=== PATIENT | female | born 1955 | race Caucasian/White ===

== ENCOUNTER 2016-05-25 | Outpatient (CLI) | payer OTHER | END 2016-05-25 14:21 | disposition home or self-care (01) | DX: G62.9 Polyneuropathy, unspecified (principal) ==

== ENCOUNTER 2016-06-08 | Outpatient (CLI) | payer OTHER | END 2016-06-08 14:50 | disposition home or self-care (01) | DX: G62.9 Polyneuropathy, unspecified (principal) ==

== ENCOUNTER 2016-06-15 | Outpatient (CLI) | payer OTHER | END 2016-06-15 15:01 | disposition home or self-care (01) | DX: I89.0 Lymphedema, not elsewhere classified (principal) ==

== ENCOUNTER 2016-06-15 08:00 | Outpatient (CLI) | payer OTHER | END 2016-06-15 08:01 | disposition home or self-care (01) | DX: E11.9 Type 2 diabetes mellitus without complications (principal); Z79.899 Other long term (current) drug therapy ==

== ENCOUNTER 2016-07-20 15:19 | Outpatient (CLI) | payer OTHER | END 2016-07-20 15:20 | disposition home or self-care (01) | DX: G62.9 Polyneuropathy, unspecified (principal) ==

== ENCOUNTER 2016-07-27 15:06 | Outpatient (CLI) | payer OTHER | END 2016-07-27 15:07 | disposition home or self-care (01) | DX: G62.9 Polyneuropathy, unspecified (principal) ==

== ENCOUNTER 2016-08-03 13:15 | Outpatient (CLI) | payer OTHER | END 2016-08-03 13:16 | disposition home or self-care (01) | DX: G62.9 Polyneuropathy, unspecified (principal) ==

== ENCOUNTER 2016-08-10 13:34 | Outpatient (CLI) | payer OTHER | END 2016-08-10 13:35 | disposition home or self-care (01) | DX: G62.9 Polyneuropathy, unspecified (principal) ==

== ENCOUNTER 2016-08-11 14:17 | Outpatient (CLI) | payer OTHER | END 2016-08-11 14:18 | disposition home or self-care (01) | DX: L98.1 Factitial dermatitis (principal); N61.0 Mastitis without abscess ==

== ENCOUNTER 2016-08-31 14:30 | Outpatient (CLI) | payer OTHER | END 2016-08-31 14:31 | disposition home or self-care (01) | DX: G62.9 Polyneuropathy, unspecified (principal); I89.0 Lymphedema, not elsewhere classified ==

== ENCOUNTER 2016-09-20 08:57 | Outpatient (CLI) | payer OTHER ==
--- NOTE | 2016-09-20 12:47 | MRI Report ---
MRI BILATERAL BREASTS WITHOUT CONTRAST: 09/20/2016 CLINICAL INDICATION: Silicone implants, new onset left breast erythema. TECHNIQUE: Axial fat-suppressed, fat and fluid-suppressed, and silicone- suppressed images of both breasts were obtained with a dedicated breast coil, as well as sagittal fat and fluid-suppressed images of both breasts. COMPARISON: Previous outside breast MRI dated 07/01/2010. FINDINGS: Bilateral silicone implants are present. There is edema of the medial skin and subcutaneous fat overlying the left implant. There is no evidence of implant rupture on either side. No deep collection is identified. No axillary adenopathy is seen. IMPRESSION: NO EVIDENCE OF SILICONE IMPLANT RUPTURE. SKIN AND SUBCUTANEOUS EDEMA OVERLYING THE LEFT IMPLANT. JOB #: [id number] EXT JOB #: [id number] [email or web address]
== END 2016-09-20 08:58 | disposition home or self-care (01) ==
LOC: DI 08:57
PROVIDERS: ATTEND Nurse Practitioner Primary Care
DX: N64.9 Disorder of breast, unspecified (principal); R60.0 Localized edema; Z98.82 Breast implant status
CPT/HCPCS: 77059

== ENCOUNTER 2016-09-27 13:19 | Outpatient (CLI) | payer OTHER ==
--- NOTE | 2016-09-27 14:25 | Ultrasound Report ---
ULTRASOUND OF NECK: 09/27/2016 CLINICAL INDICATION: Palpable abnormality. TECHNIQUE: Real-time scanning was performed with signs sales representative static images obtained. FINDINGS: Ultrasound of the palpable abnormality identified by the patient at the left angle of the mandible was performed. At this site, there is a small lymph node, measuring 1.8 x 1.6 x 0.4 cm. No sonographically suspiciou s findings are seen. IMPRESSION: SMALL LYMPH NODE, CORRELATING WITH THE PALPABLE ABNORMALITY. JOB #: [id number] EXT JOB #:[id number]
== END 2016-09-27 13:20 | disposition home or self-care (01) ==
LOC: DI 13:19
PROVIDERS: ATTEND Internal Medicine
DX: R22.1 Localized swelling, mass and lump, neck (principal)
CPT/HCPCS: 76536

== ENCOUNTER 2016-09-28 15:24 | Outpatient (CLI) | payer OTHER | END 2016-09-28 15:25 | disposition home or self-care (01) | LOC: CAM 15:24 | PROVIDERS: ATTEND Internal Medicine Hematology & Oncology | DX: G62.9 Polyneuropathy, unspecified (principal) | CPT/HCPCS: 97810; 97811 ==

== ENCOUNTER 2016-11-30 15:25 | Outpatient (CLI) | payer OTHER | END 2016-11-30 15:26 | disposition home or self-care (01) | LOC: CAM 15:25 | PROVIDERS: ATTEND Internal Medicine Hematology & Oncology | DX: G62.9 Polyneuropathy, unspecified (principal) | CPT/HCPCS: 97810; 97811 ==

== ENCOUNTER 2016-12-14 15:36 | Outpatient (CLI) | payer OTHER | END 2016-12-14 15:37 | disposition home or self-care (01) | LOC: CAM 15:36 | PROVIDERS: ATTEND Internal Medicine Hematology & Oncology | DX: G62.9 Polyneuropathy, unspecified (principal) | CPT/HCPCS: 97810; 97811 ==

== ENCOUNTER 2017-01-08 23:07 | Emergency (ER) | payer OTHER ==
[2017-01-08 23:20] VITALS: BP 151/95
--- NOTE | 2017-01-08 23:24 | ED Physician Documentation ---
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 The IV line detached and she got splatter of blood and IV solution onto her chest, neck, face and a drop or two in her right eye. She did wash her face and eye right away. Denies any visual change nor eye discomfort. 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: Type 2 diabetes 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 : Kidney stones HEENT: None, Dental implants Psych: None Musculoskeletal: Osteoporosis - Past Surgical History Past Surgical History: Yes General: Appendectomy Ortho: Arthroscopic surgery /WOOD EXPERIMENTAL MECHANIC: Hysterectomy - Present Medications Home Medications: Ambulatory Orders Medication Instructions Recorded Confirmed Vit C/Ascorbate Ca/Ascorb Sod 1,000 mg PO DAILY 12/01/12 10/02/16 [Vitamin C 500 mg/15 ml Liquid] Lactobacillus Rhamnosus GG 1 cap PO DAILY 02/24/13 10/02/16 [Probiotic] Aspirin Chewable [St Nawaf 81 mg PO DAILY 09/29/13 10/02/16 Aspirin] Calcium Carbonate/Vitamin D3 600 mg PO DAILY 09/29/13 10/02/16 [Calcium + Vitamin D Tablet] Glucosa Mix 2Kcl/Chondroitin Mix 1 each PO QID 09/29/13 10/02/16 [Glucosamine & Chondroitin Cap] metFORMIN [Glucophage] 500 mg PO TID 09/29/13 10/02/16 Allopurinol 200 mg PO DAILY 10/26/14 10/02/16 Hydrochlorothiazide 25 mg PO DAILY 10/26/14 10/02/16 Gabapentin [Neurontin] 1,500 mg PO TID 03/01/15 10/02/16 Hydrocodone/Ibuprofen [Vicoprofen 3 tab PO DAILY PRN 09/06/15 10/02/16 7.5-200 mg Tablet] Anastrozole [Arimidex] 1 mg PO DAILY 06/26/16 10/02/16 Biotin 300 mg PO DAILY 06/26/16 10/02/16 Ibuprofen 800 mg PO DAILY 06/26/16 10/02/16 Insulin 70/30 Human [NovoLIN] 20 unit INJ DAILY 06/26/16 10/02/16 Alendronate [Fosamax] 70 mg PO Q7D 10/02/16 10/02/16 - Allergies Allergies/Adverse Reactions: Allergies Allergy/AdvReac Type Severity Reaction Status Date / Time latex AdvReac Mild Sensitivity/Red Verified 01/08/17 23:18 irritated skin - Social History Does the pt smoke?: No Smoking Status: Never smoker Does the pt drink ETOH?: No Does the pt have substance abuse?: No - Immunizations Immunizations are current?: Yes - POLST Patient has POLST: No PD ED PE NORMAL - Vitals Vital signs reviewed: Yes - General General: Alert and oriented X 3, No acute distress, Well developed/nourished - HEENT HEENT: PERRL, EOMI, Other (normal eye appearance) - Derm Derm: Other (no noted rash nor FB. Her uniform shirt does not have any notable blood stains.) Results - Vitals Vitals: Oxygen O2 Source Room air - Labs Labs: Laboratory Tests 01/08/17 23:26 Hep Bs Immunity Index 140 Hepatitis C Antibody NON-REACTIVE Hep C Ab Signal/Cutoff 0.00 HIV 1&2 Ag/Ab, 4th Gen NON-REACTIVE PD MEDICAL DECISION MAKING - ED course Complexity details: considered differential (no noted blood stains on uniform shirt; she did wipe it off but blood would often stain some so fortunately it was probably more diluted and mostly solute from the IV. She had already washed her face and rinsed eye so did not need that here. Will do exposure protocol labs, and the source patient is in ED so ordered source panel for him. ), d/w patient Departure - Departure Disposition: 01 Home, Self Care Clinical Impression: Employee exposure to body fluids Condition: Stable Record reviewed to determine appropriate education?: Yes Instructions: ED Body Fluid Exp HC Worker Follow-Up: Tom Almanza MD [Primary Care Provider] - Comments: Employee health will likely contact you tomorrow regarding test results and follow-up. We are testing the source patient for blood-borne diseases. Discharge Date/Time: 01/08/17 23:40
== END 2017-01-08 23:40 | disposition home or self-care (01) ==
LOC: ED 23:07
DX: Z77.21 Contact with and (suspected) exposure to potentially hazardous body fluids (principal); E11.42 Type 2 diabetes mellitus with diabetic polyneuropathy; C50.919 Malignant neoplasm of unspecified site of unspecified female breast; Z79.82 Long term (current) use of aspirin; Z79.4 Long term (current) use of insulin
CPT/HCPCS: 36415; 86317; 86803; 87389; 99282; 99283

== ENCOUNTER 2017-01-11 13:29 | Outpatient (CLI) | payer OTHER | END 2017-01-11 13:30 | disposition home or self-care (01) | LOC: CAM 13:29 | PROVIDERS: ATTEND Internal Medicine Hematology & Oncology | DX: G62.9 Polyneuropathy, unspecified (principal) | CPT/HCPCS: 97810; 97811 ==

== ENCOUNTER 2017-01-11 15:15 | Emergency (ER) | payer OTHER ==
[2017-01-11 15:40] VITALS: BP 153/101
--- NOTE | 2017-01-11 16:20 | XRAY Preliminary Report ---
Exam: XR Foot 3 View RT IMPRESSION: Stable plantar calcaneal enthesophyte, otherwise unremarkable foot radiography. [facility] SITE ID: [id number]
--- NOTE | 2017-01-11 16:22 | XRAY Report ---
EXAM: RIGHT FOOT RADIOGRAPHY EXAM DATE: 01/11/2017 04:07 PM. CLINICAL HISTORY: Right foot twisting injury. Pain for 2 days. COMPARISON: 06/10/2014. TECHNIQUE: 3 views. FINDINGS: Bones: No traumatic or destructive bone abnormalities. Stable plantar calcaneal enthesophyte. Joints: Normal. No subluxations. Soft Tissues: Normal. No soft tissue swelling. IMPRESSION: Stable plantar calcaneal enthesophyte, otherwise unremarkable foot radiography. [facility] Referring Provider Line: [phone] SITE ID: [id number]
--- NOTE | 2017-01-11 16:27 | ED Physician Documentation ---
PD HPI LOWER EXT INJURY - Stated complaint Stated Complaint: RT FOOT INJ - Chief complaint Chief Complaint: Ext Problem - History obtained from History obtained from: Patient - History of Present Illness PD HPI LOW EXT INJURY LOCATION: Right, Foot Type of injury: Twist Where injury occurred: Work Timing - onset: How many days ago (2) Timing - details: Still present Worsened by: Moving, Other (Weightbearing) Associated symptoms: Swelling. 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 She was at work 2 days ago when she stumbled and twisted her right foot while walking on uneven ground when assisting another patient. She has noticed increased pain and swelling of her foot since the incident occurred. The pain is worse with weightbearing. She denies history of similar symptoms in the past. Review of Systems Constitutional: denies: Fever Skin: denies: Abrasion (s) Musculoskeletal: reports: Extremity pain (right foot) Neurologic: reports: Numbness (chronic peripheral neuropathy). 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: Breast cancer : Kidney stones HEENT: None, Dental implants Psych: None Musculoskeletal: Osteoporosis - Past Surgical History Past Surgical History: Yes General: Appendectomy Ortho: Arthroscopic surgery /FINANCIAL SERVICES INTERNSHIP: Hysterectomy - Present Medications Home Medications: Ambulatory Orders Medication Instructions Recorded Confirmed Vit C/Ascorbate Ca/Ascorb Sod 1,000 mg PO DAILY 12/01/12 10/02/16 [Vitamin C 500 mg/15 ml Liquid] Lactobacillus Rhamnosus GG 1 cap PO DAILY 02/24/13 10/02/16 [Probiotic] Aspirin Chewable [St Nawaf 81 mg PO DAILY 09/29/13 10/02/16 Aspirin] Calcium Carbonate/Vitamin D3 600 mg PO DAILY 09/29/13 10/02/16 [Calcium + Vitamin D Tablet] Glucosa Mix 2Kcl/Chondroitin Mix 1 each PO QID 09/29/13 10/02/16 [Glucosamine & Chondroitin Cap] metFORMIN [Glucophage] 500 mg PO TID 09/29/13 10/02/16 Allopurinol 200 mg PO DAILY 10/26/14 10/02/16 Hydrochlorothiazide 25 mg PO DAILY 10/26/14 10/02/16 Gabapentin [Neurontin] 1,500 mg PO TID 03/01/15 10/02/16 Hydrocodone/Ibuprofen [Vicoprofen 3 tab PO DAILY PRN 09/06/15 10/02/16 7.5-200 mg Tablet] Anastrozole [Arimidex] 1 mg PO DAILY 06/26/16 10/02/16 Biotin 300 mg PO DAILY 06/26/16 10/02/16 Ibuprofen 800 mg PO DAILY 06/26/16 10/02/16 Insulin 70/30 Human [NovoLIN] 20 unit INJ DAILY 06/26/16 10/02/16 Alendronate [Fosamax] 70 mg PO Q7D 10/02/16 10/02/16 - Allergies Allergies/Adverse Reactions: Allergies Allergy/AdvReac Type Severity Reaction Status Date / Time latex AdvReac Mild Sensitivity/Red Verified 01/11/17 15:40 irritated skin - Social History Does the pt smoke?: No Smoking Status: Never smoker Does the pt drink ETOH?: No Does the pt have substance abuse?: No - Immunizations Immunizations are current?: Yes - POLST Patient has POLST: No PD ED PE NORMAL - Vitals Vital signs reviewed: Yes - General General: Alert and oriented X 3 - HEENT HEENT: Atraumatic - Respiratory Respiratory: No respiratory distress - Derm Derm: No rash - Extremities Extremities: No calf tenderness / cord, Other (There is tenderness to palpation of the right midfoot, particularly with plantar palpation. There is no break in the integument. Distal light touch sensation is diminished, consistent with peripheral neuropathy.) - Neuro Neuro: Alert and oriented X 3, No motor deficit Results - Vitals Vitals: Vital Signs - 24 hr 01/11/17 15:38 Temperature 37.0 C Heart Rate 106 H Respiratory 18 Rate Blood Pressure 153/101 H O2 Saturation 98 Oxygen O2 Source Room air - Rads (name of study) Right foot xray Radiology: Prelim report reviewed, EMP read contemporaneously, See rad report ( Stable plantar calcaneal enthesophyte, otherwise unremarkable foot radiography.) PD MEDICAL DECISION MAKING - ED course Complexity details: reviewed results, re-evaluated patient, considered differential, d/w patient, other (L&I form was completed.) ED course: The patient's presentation is most consistent with strain of the right foot. There is no evidence of fracture or other bony abnormality on radiographic imaging. She declined application of a postop shoe. I discussed with her the expected course of injury, symptomatic treatment and outpatient follow-up, as well as potentially worrisome signs or symptoms that should prompt reevaluation in the emergency department. A labor and industries form was completed. Departure - Departure Disposition: 01 Home, Self Care Clinical Impression: Right foot strain Qualifiers: Encounter type: initial encounter Qualified Code(s): S96.911A - Strain of unspecified muscle and tendon at ankle and foot level, right foot, initial encounter Condition: Stable Instructions: ED Sprain Foot Follow-Up: Tom Almanza MD [Primary Care Provider] - Comments: Keep your right foot elevated as much of the time as possible. Apply ice pack intermittently for the next 3 or 4 days. You can use ibuprofen, up to 800 mg 3 times daily as needed for inflammation or pain. Let pain be her guide to activity level. Follow up with your primary physician within 2 weeks. Call to schedule an appointment. Return to the emergency department if you develop increasing pain or swelling, or otherwise worsening symptoms. Forms: Activity restrictions Discharge Date/Time: 01/11/17 16:37
== END 2017-01-11 16:37 | disposition home or self-care (01) ==
LOC: ED 15:15
DX: S96.911A Strain of unspecified muscle and tendon at ankle and foot level, right foot, initial encounter (principal); X50.1XXA Overexertion from prolonged static or awkward postures, initial encounter; Y93.F9 Activity, other caregiving; Y99.0 Civilian activity done for income or pay; E11.42 Type 2 diabetes mellitus with diabetic polyneuropathy; Z79.84 Long term (current) use of oral hypoglycemic drugs; Z85.3 Personal history of malignant neoplasm of breast; M81.0 Age-related osteoporosis without current pathological fracture; Z79.82 Long term (current) use of aspirin
CPT/HCPCS: 99282; 99283

== ENCOUNTER 2017-01-18 13:42 | Outpatient (CLI) | payer OTHER | END 2017-01-18 13:43 | disposition home or self-care (01) | LOC: CAM 13:42 | PROVIDERS: ATTEND Internal Medicine Hematology & Oncology | DX: G62.9 Polyneuropathy, unspecified (principal) | CPT/HCPCS: 97810; 97811 ==

== ENCOUNTER 2017-01-22 12:29 | Outpatient (CLI) | payer OTHER ==
--- NOTE | 2017-01-23 10:05 | Nuclear Medicine Report ---
EXAM: BONE SCAN EXAM DATE: 01/22/2017 03:35 PM. CLINICAL HISTORY: Pain in joints. COMPARISON: Prior bone scan 04/29/2015. TECHNIQUE: Following the intravenous administration of 32.6 mCi of technetium 99m MDP and an appropri ate delay, a whole-body scan was performed in anterior and posterior projections. Site-specific spot views of the region of interest were obtained in various projections. FINDINGS: Exam Quality: Normal overall osseous radiotracer uptake. Physiological tracer uptake in bilateral col lecting systems. Skull: No focal uptake. Thorax: No focal lesions in ribs or sternum. Pelvis: No focal lesions. Spine: There is mildly increased tracer uptake in the left L5-S1 facet joint consistent with osteoart hritis. There is moderately increased tracer uptake in the midfoot bilaterally, as well as both knees consist ent with osteoarthritis. IMPRESSION: 1. Osteoarthritis of the left L5-S1 facet joint, both knees and the midfeet bilaterally. [facility] Referring Provider Line: [phone] SITE ID: [id number]
== END 2017-01-22 12:30 | disposition home or self-care (01) ==
LOC: DI 12:29
PROVIDERS: ATTEND Internal Medicine Hematology & Oncology
DX: M47.897 Other spondylosis, lumbosacral region (principal); M17.0 Bilateral primary osteoarthritis of knee; M19.072 Primary osteoarthritis, left ankle and foot; M19.071 Primary osteoarthritis, right ankle and foot; C50.919 Malignant neoplasm of unspecified site of unspecified female breast
CPT/HCPCS: 78306; A9503

== ENCOUNTER 2017-02-27 13:09 | Outpatient (CLI) | payer OTHER ==
[2017-02-27] MEDS ORDERED: BUFFERED LIDOCAINE 10 ML SYRINGE IU ONE (14:14)
[2017-02-27 14:43] VITALS: BP 162/92
--- NOTE | 2017-02-28 09:08 | Ultrasound Report ---
ULTRASOUND-GUIDED FINE NEEDLE ASPIRATION OF COMPLEX RIGHT BREAST CYST: 02/27/2017 CLINICAL INDICATION: Complex fluid collection right upper-outer quadrant, personal history of left b reast cancer status post bilateral mastectomy. Following obtaining informed consent, the patient's right breast was prepped and draped in the usual sterile fashion. The skin and soft tissues were anesthetized with lidocaine. A spinal needle was in serted into the complex fluid collection, and it was aspirated to completion. Approximately 5 mL of yellow, cloudy fluid was submitted to Pathology in [facility]. The patient tolerated the procedure well . No suspicious solid component was appreciated following the aspiration, so no core needle biopsy was performed. IMPRESSION: SUCCESSFUL FINE NEEDLE ASPIRATION OF COMPLEX FLUID COLLECTION IN THE RIGHT UPPER-INNER Q UADRANT OF THE BREAST. AWAIT PATHOLOGY REPORT. JOB #: [id number] EXT JOB #:[id number]
== END 2017-02-27 13:10 | disposition home or self-care (01) ==
LOC: DI 13:09
PROVIDERS: ATTEND Internal Medicine Hematology & Oncology
DX: R92.8 Other abnormal and inconclusive findings on diagnostic imaging of breast (principal); Z85.3 Personal history of malignant neoplasm of breast
CPT/HCPCS: 19083; 88173; 88305

== ENCOUNTER 2017-03-26 11:42 | Outpatient (CLI) | payer OTHER ==
[2017-03-26 12:00] LABS: BASOPHILS # (AUTO) 0.1 10^3/uL (0.0-0.1); BASOPHILS % (AUTO) 1.2 %; EOSINOPHILS # (AUTO) 0.3 10^3/uL (0.0-0.7); EOSINOPHILS % (AUTO) 2.7 %; HCT - HEMATOCRIT 40.9 % (37.0-47.0); HGB - HEMOGLOBIN 13.9 g/dL (12.0-16.0); LYMPHOCYTES # (AUTO) 2.3 10^3/uL (1.5-3.5); LYMPHOCYTES % (AUTO) 23.4 %; MEAN CORPUSCULAR HEMOGLOBIN 29.2 pg (27.0-31.0); MEAN CORPUSCULAR VOLUME 85.7 fL (81.0-99.0); MEAN PLATELET VOLUME 7.8 fL (7.9-10.8); MONOCYTES # (AUTO) 0.8 10^3/uL (0.0-1.0); MONOCYTES % (AUTO) 8.7 %; NEUTROPHILS # (AUTO) 6.2 10^3/uL (1.5-6.6); RED BLOOD COUNT 4.77 10^6/uL (4.20-5.40); RED CELL DISTRIBUTION WIDTH 14.5 % (12.0-15.0); UNCORRECTED WHITE BLOOD COUNT 9.7 x10^3/uL; WHITE BLOOD COUNT 9.7 x10^3/uL (4.8-10.8)
[2017-03-26 12:13] LABS: HEMOGLOBIN A1C 0.84 g/dL
[2017-03-26 12:33] LABS: ALBUMIN/GLOBULIN RATIO 1.3 (1.0-2.2); BILIRUBIN,TOTAL 0.6 mg/dL (0.2-1.0); CALCIUM 9.9 mg/dL (8.5-10.3); CREATININE 0.6 mg/dL (0.4-1.0); POTASSIUM 3.4 mmol/L (3.5-5.0); TOTAL PROTEIN 7.3 g/dL (6.7-8.2)
== END 2017-03-26 11:43 | disposition home or self-care (01) ==
LOC: LAB 11:42
PROVIDERS: ATTEND Internal Medicine
DX: E11.9 Type 2 diabetes mellitus without complications (principal); R10.11 Right upper quadrant pain
CPT/HCPCS: 36415; 80053; 83036; 83690; 85025

== ENCOUNTER 2017-04-02 07:46 | Outpatient (CLI) | payer OTHER ==
--- NOTE | 2017-04-03 09:28 | Ultrasound Report ---
COMPLETE ABDOMINAL ULTRASOUND: 04/02/2017 CLINICAL INDICATION: Pain. TECHNIQUE: Real-time scanning was performed with development representative static images obtained. FINDINGS: The liver measures 20 cm. Hepatic echogenicity is increased, compatible with fatty infiltration. No focal lesion is appreciated. The common bile duct measures 4 mm. The gallbladder is unremarkable. The visualized pancreas is unremarkable. The right kidney measures 12.1 cm, and demonstrates two echogenic shadowing foci, compatible with calculi, the larger measuring 10 mm and the smaller measuring 9 mm, without evidence of hydronephrosis. The left kidney measures 11.3 cm, and appears unremarkable. The spleen measures 10.5 cm, and demonstrates normal echotexture. The abdominal aorta is normal in caliber. The inferior vena cava is unremarkable. No free fluid is present. IMPRESSION 1. FATTY INFILTRATION OF THE LIVER. 2. NONOBSTRUCTIVE RIGHT RENAL CALCULI. NO HYDRONEPHROSIS. MTDD
== END 2017-04-02 07:47 | disposition home or self-care (01) ==
LOC: DI 07:46
PROVIDERS: ATTEND Internal Medicine
DX: K76.0 Fatty (change of) liver, not elsewhere classified (principal); N20.0 Calculus of kidney
CPT/HCPCS: 76700

== ENCOUNTER 2017-07-16 08:00 | Outpatient (CLI) | payer OTHER ==
[2017-07-16 10:48] LABS: CALCIUM 8.9 mg/dL (8.5-10.3); CREATININE 0.4 mg/dL (0.4-1.0)
== END 2017-07-16 08:01 | disposition home or self-care (01) ==
LOC: LAB.R 08:00
PROVIDERS: ATTEND Physician Assistant Medical
DX: M81.0 Age-related osteoporosis without current pathological fracture (principal)
CPT/HCPCS: 82310; 82565

== ENCOUNTER 2017-08-22 09:23 | Outpatient (CLI) | payer OTHER ==
[2017-08-22 10:05] LABS: HB2 TOTAL 14.8 g/dL; HEMOGLOBIN A1C 0.83 g/dL; HEMOGLOBIN A1C % 7.3 % (4.6-6.2)
== END 2017-08-22 09:24 | disposition home or self-care (01) ==
LOC: LAB 09:23
PROVIDERS: ATTEND Internal Medicine
DX: R51 Headache (principal); E11.9 Type 2 diabetes mellitus without complications
CPT/HCPCS: 36415; 82565; 83036; 85651; 86140

== ENCOUNTER 2017-12-10 16:23 | Emergency (ER) | payer OTHER ==
[2017-12-10 16:41] VITALS: BP 143/87
--- NOTE | 2017-12-10 17:14 | XRAY Report ---
Procedure Date: 12/10/2017 Accession Number: [id number] / [id number] Procedure: XR - Knee 4 View RT CPT Code: FULL RESULT: EXAM: RIGHT KNEE RADIOGRAPHY EXAM DATE: 12/10/2017 04:59 PM. CLINICAL HISTORY: Twisted knee, rt knee pain. COMPARISON: XR KNEE 4 OR MORE VIEWS 07/25/2009. TECHNIQUE: 3 views. FINDINGS: Bones: No fracture or focal bony lesion. Joints: No evidence of dislocation. There is moderate underlying degenerative disease, spinal septa to femoral compartment. No evidence of joint effusion. Soft Tissues: No unexpected soft tissue findings. IMPRESSION: 1. No evidence of fracture or dislocation. 2. There is moderate underlying degenerative disease, most pronounced at the patellofemoral compartment [facility]
--- NOTE | 2017-12-10 18:55 | ED Physician Documentation ---
PD HPI LOWER EXT INJURY - Stated complaint Stated Complaint: KNEE PX - Chief complaint Chief Complaint: Ext Problem - History obtained from History obtained from: Patient, Friend - History of Present Illness PD HPI LOW EXT INJURY LOCATION: Right, Knee Type of injury: Twist Where injury occurred: Work Timing - onset: How many days ago (3) Timing - duration: Days (several) Timing - details: Abrupt onset Pain level max: 7 Pain level now: 5 Improved by: Rest, Ice, Immobilization Worsened by: Moving, Palpating Associated symptoms: No: Weakness, Numbness, Tingling, Swelling Recently seen: Not recently seen - Additional information Additional information: 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 She was getting out of the ambulance several days ago when she twisted on her right knee. Has had continued pain since that time. Using crutches today. Has had problems with this knee in the past. 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 : Kidney stones HEENT: None, Dental implants Psych: None Musculoskeletal: Osteoporosis, Other Other Past Medical History: DJD - Past Surgical History Past Surgical History: Yes General: Appendectomy Ortho: Arthroscopic surgery /TRAFFIC CONTROL OPERATOR: Hysterectomy, Mastectomy - Present Medications Home Medications: Ambulatory Orders Medication Instructions Recorded Confirmed Vit C/Ascorbate Ca/Ascorb Sod 1,000 mg PO DAILY 12/01/12 08/27/17 [Vitamin C 500 mg/15 ml Liquid] Lactobacillus Rhamnosus GG 1 cap PO DAILY 02/24/13 08/27/17 [Probiotic] Aspirin Chewable [St Nawaf 81 mg PO DAILY 09/29/13 08/27/17 Aspirin] Calcium Carbonate/Vitamin D3 600 mg PO DAILY 09/29/13 08/27/17 [Calcium + Vitamin D Tablet] Glucosa Mix 2Kcl/Chondroitin Mix 1 each PO QID 09/29/13 08/27/17 [Glucosamine & Chondroitin Cap] metFORMIN [Glucophage] 500 mg PO BIDWM 09/29/13 10/03/17 Allopurinol 200 mg PO DAILY 10/26/14 08/27/17 Hydrochlorothiazide 25 mg PO DAILY 10/26/14 08/27/17 Gabapentin [Neurontin] 1,800 mg PO DAILY 03/01/15 08/27/17 Hydrocodone/Ibuprofen [Vicoprofen 3 tab PO DAILY PRN 09/06/15 08/27/17 7.5-200 mg Tablet] Biotin 300 mg PO DAILY 06/26/16 08/27/17 Ibuprofen 400 mg PO DAILY 06/26/16 08/27/17 Anastrozole [Arimidex] 1 mg PO DAILY 30 Days #30 tablet 03/27/17 08/27/17 Denosumab [Prolia] 60 mg SQ Q6M 08/27/17 08/27/17 Insulin NPH Human Isophane 20 unit SUBQ DAILY 10/03/17 10/03/17 [Humulin N] Hydrocodone/Ibuprofen 1 - 2 each PO Q8H PRN 10/04/17 10/04/17 [Hydrocodone-Ibuprofen 7.5-200] Hydrocodone/Ibuprofen 1 tab PO Q6HR PRN #10 tablet 12/10/17 [Hydrocodone-Ibuprofen 10-200] - Allergies Allergies/Adverse Reactions: Allergies Allergy/AdvReac Type Severity Reaction Status Date / Time latex AdvReac Mild Sensitivity/Red Verified 01/11/17 15:40 irritated skin - Social History Does the pt smoke?: No Smoking Status: Never smoker Does the pt drink ETOH?: No Does the pt have substance abuse?: No - Immunizations Immunizations are current?: Yes - POLST Patient has POLST: No PD ED PE NORMAL - Vitals Vital signs reviewed: Yes - General General: Alert and oriented X 3, No acute distress - Derm Derm: Warm and dry - Extremities Extremities: Other (R knee - Mild tenderness along the medial joint line. Mild MCL laxity. LCL, ACL, PCL intact. Unable to tolerate meniscus testing. Neurovascularly intact) - Neuro Neuro: Alert and oriented X 3 Results - Vitals Vitals: Vital Signs - 24 hr 12/10/17 16:34 Temperature 36.5 C Heart Rate 78 Respiratory 18 Rate Blood Pressure 143/87 H O2 Saturation 98 Oxygen O2 Source Room air - Rads (name of study) R knee xray Radiology: Prelim report reviewed, EMP read contemporaneously, See rad report ( no acute abnormalities.) PD MEDICAL DECISION MAKING - ED course Complexity details: reviewed results, re-evaluated patient, considered differential, d/w patient ED course: Patient is a 62-year-old female with a right knee sprain. Possible meniscal injury. Will utilize her crutches at home. Will prescribe pain medication for home and follow-up closely with her doctor. Neurovascularly intact. Patient counseled regarding signs and symptoms for which I believe and urgent re- evaluation would be necessary. Patient with good understanding of and agreement to plan and is comfortable going home at this time This document was made in part using voice recognition software. While efforts are made to proofread this document, sound alike and grammatical errors may occur. - Sepsis Event Vital Signs: Vital Signs - 24 hr 12/10/17 16:34 Temperature 36.5 C Heart Rate 78 Respiratory 18 Rate Blood Pressure 143/87 H O2 Saturation 98 Oxygen O2 Source Room air Departure - Departure Disposition: Home, Self Care Clinical Impression: Right knee sprain Qualifiers: Encounter type: initial encounter Involved ligament of knee: unspecified ligament Qualified Code(s): S83.91XA - Sprain of unspecified site of right knee , initial encounter Condition: Good Instructions: ED Meniscal Injury Knee Poss, ED Sprain Knee Collateral Ligaments Follow-Up: Tom Almanza MD [Primary Care Provider] - Within 1 week Prescriptions: Hydrocodone/Ibuprofen [Hydrocodone-Ibuprofen 10-200] 1 tab PO Q6HR PRN #10 tablet PRN Reason: knee pain Comments: Return if you worsen. Your x-rays are normal today, but you may have injured your meniscus or your collateral ligaments. Follow-up with your doctor for further evaluation once the swelling has decreased. Do not drink alcohol or drive while on narcotic pain medicine. Note that many narcotic pain relievers also contain tylenol/acetaminophen. Please ensure that your total dose of acetaminophen from all sources does not exceed 3 grams (3000mg) per day. You may constipated on this medication, take a stool softener such as "Colace" twice a day while you are on it. Also recommend a fevw-ljh-jowidgc laxative such as senna or MiraLAX any day that you do not have a bowel movement. If you received narcotic pain medication in the emergency department, do not drive or operate machinery for the next 24 hours. Forms: Activity restrictions Discharge Date/Time: 12/10/17 19:07
== END 2017-12-10 19:07 | disposition home or self-care (01) ==
LOC: ED 16:23
DX: S83.91XA Sprain of unspecified site of right knee, initial encounter (principal); X50.1XXA Overexertion from prolonged static or awkward postures, initial encounter; Y93.89 Activity, other specified; Y92.538 Other ambulatory health services establishments as the place of occurrence of the external cause; Y99.0 Civilian activity done for income or pay; E11.9 Type 2 diabetes mellitus without complications; Z79.4 Long term (current) use of insulin
CPT/HCPCS: 99283

== ENCOUNTER 2018-03-12 17:03 | Emergency (ER) | payer OTHER ==
--- NOTE | 2018-03-12 18:03 | ED Physician Documentation ---
PD HPI NVD - Stated complaint Stated Complaint: FEMALE - Chief complaint Chief Complaint: Abd Pain - History obtained from History obtained from: Patient - History of Present Illness Timing - onset: How many hours ago (2) Timing - duration: Hours (2) Timing - details: Abrupt onset, Still present, Intermittant Pain level max: 5 Pain level now: 5 Associated symptoms: Abdominal pain, Hematuria, Vaginal bleeding. No: Fever, Chest pain, Hematemesis, Melena, Hematochezia, Near syncope / syncope Contributing factors: Diabetes. No: Sick contact, Travel, Alcohol use, Anticoagulated Improved by: Other (nothing) Worsened by: Other (nothing) Similar symptoms before: Has not had sx before Recently seen: Not recently seen - Additonal information Additional information: 62-year-old female with history of breast cancer, sarcoid, kidney stone, hypertension, diabetes, bilateral mastectomy, hysterectomy here with complaint of feeling nausea since 3 PM and started vomiting prior to coming to the emergency room with diarrhea. She also stated she noticed hematuria this morning. She stated she took some Zofran without relief. Denies any trauma or travel. Review of Systems Ten Systems: 10 systems reviewed and negative Constitutional: denies: Fever, Chills, Myalgias Nose: denies: Rhinorrhea / runny nose Throat: denies: Sore throat Cardiac: denies: Chest pain / pressure Respiratory: denies: Dyspnea GI: reports: Abdominal Pain, Nausea, Vomiting, Diarrhea. denies: Constipation, Hematemesis, Bloody / black stool : reports: Hematuria (Intermittent and chronic related to kidney stones). 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 : Kidney stones HEENT: None, Dental implants Psych: None Musculoskeletal: Osteoporosis, Other - Past Surgical History Past Surgical History: Yes General: Appendectomy Ortho: Arthroscopic surgery /FABRIC SEPARATOR OPERATOR: Hysterectomy, Mastectomy - Present Medications Home Medications: Ambulatory Orders Medication Instructions Recorded Confirmed Vit C/Ascorbate Ca/Ascorb Sod 1,000 mg PO DAILY 12/01/12 02/25/18 [Vitamin C 500 mg/15 ml Liquid] Lactobacillus Rhamnosus GG 1 cap PO DAILY 02/24/13 02/25/18 [Probiotic] Aspirin Chewable [St Nawaf 81 mg PO DAILY 09/29/13 02/25/18 Aspirin] Calcium Carbonate/Vitamin D3 600 mg PO DAILY 09/29/13 02/25/18 [Calcium + Vitamin D Tablet] Glucosa Mix 2Kcl/Chondroitin Mix 1 each PO QID 09/29/13 02/25/18 [Glucosamine & Chondroitin Cap] metFORMIN [Glucophage] 500 mg PO BIDWM 09/29/13 02/25/18 Allopurinol 200 mg PO DAILY 10/26/14 02/25/18 Hydrochlorothiazide 25 mg PO DAILY 10/26/14 02/25/18 Gabapentin [Neurontin] 1,800 mg PO DAILY 03/01/15 02/25/18 Biotin 300 mg PO DAILY 06/26/16 02/25/18 Ibuprofen 400 mg PO DAILY 06/26/16 02/25/18 Anastrozole [Arimidex] 1 mg PO DAILY 30 Days #30 tablet 03/27/17 02/25/18 Denosumab [Prolia] 60 mg SQ Q6M 08/27/17 02/25/18 Insulin NPH Human Isophane 20 unit SUBQ DAILY 10/03/17 02/25/18 [Humulin N] Hydrocodone/Ibuprofen 2 - 3 each PO Q8H PRN 10/04/17 02/25/18 [Hydrocodone-Ibuprofen 7.5-200] - Allergies Allergies/Adverse Reactions: Allergies Allergy/AdvReac Type Severity Reaction Status Date / Time latex AdvReac Mild Sensitivity/Red Verified 01/11/17 15:40 irritated skin - Social History Does the pt smoke?: No Smoking Status: Never smoker Does the pt drink ETOH?: No Does the pt have substance abuse?: No - Immunizations Immunizations are current?: Yes - POLST Patient has POLST: No PD ED PE NORMAL - Vitals Vital signs reviewed: Yes - General General: Alert and oriented X 3, No acute distress, Well developed/nourished - HEENT HEENT: EOMI, Moist mucous membranes, Pharynx benign - Neck Neck: Supple, no meningeal sign - Cardiac Cardiac: RRR, No murmur - Respiratory Respiratory: No respiratory distress, Clear bilaterally - Abdomen Abdomen: Normal bowel sounds, Soft, Non distended, Other (Very mild tenderness of low abdominal area to deep palpation. No rebound no rigidity or guarding.) - Back Back: No CVA TTP - Derm Derm: Warm and dry - Extremities Extremities: No deformity - Neuro Neuro: Alert and oriented X 3 - Psych Psych: Normal mood, Normal affect Results - Vitals Vitals: Vital Signs - 24 hr 03/12/18 17:07 Temperature 36.8 C Heart Rate 78 Respiratory 22 Rate Blood Pressure 172/100 H O2 Saturation 98 Oxygen O2 Source Room air - EKG (time done) 1813 Rate: Rate (enter#) Rhythm: NSR Douglas: Normal Intervals: Normal SD QRS: Normal Ischemia: Normal ST segments - Labs Labs: Laboratory Tests 03/12/18 03/12/18 03/12/18 18:00 18:01 18:01 WBC 8.8 RBC 4.77 Hgb 13.9 Hct 42.5 MCV 89.0 MCH 29.2 MCHC 32.8 RDW 14.2 Plt Count 244 MPV 8.5 Neut # (Auto) 6.0 Lymph # (Auto) 1.9 George # (Auto) 0.7 Eos # (Auto) 0.2 Baso # (Auto) 0.1 Absolute Nucleated RBC 0.00 Nucleated RBC % 0.0 Sodium 134 L Potassium 3.3 L Chloride 98 L Carbon Dioxide 27 Anion Gap 9.0 BUN 14 Creatinine 0.6 Estimated GFR (MDRD) 102 Glucose 203 H Calcium 10.1 Total Bilirubin 0.6 AST 37 ALT 41 Alkaline Phosphatase 74 Troponin I Total Protein 7.4 Albumin 4.2 Globulin 3.2 Albumin/Globulin Ratio 1.3 Lipase 26 Urine Color YELLOW Urine Clarity CLOUDY Urine pH 5.5 Ur Specific Shade >=1.030 H Urine Protein 30 H Urine Glucose (UA) NEGATIVE Urine Ketones TRACE Urine Occult Blood LARGE H Urine Nitrite NEGATIVE Urine Bilirubin NEGATIVE Urine Urobilinogen 0.2 (NORMAL) Ur Leukocyte Esterase TRACE H Urine RBC TNTC H Urine WBC 4-5 Ur Squamous Epith Cells NONE SEEN Urine Bacteria None Seen Ur Microscopic Review INDICATED Urine Culture Comments INDICATED 03/12/18 18:01 WBC RBC Hgb Hct MCV MCH MCHC RDW Plt Count MPV Neut # (Auto) Lymph # (Auto) George # (Auto) Eos # (Auto) Baso # (Auto) Absolute Nucleated RBC Nucleated RBC % Sodium Potassium Chloride Carbon Dioxide Anion Gap BUN Creatinine Estimated GFR (MDRD) Glucose Calcium Total Bilirubin AST ALT Alkaline Phosphatase Troponin I < 0.04 Total Protein Albumin Globulin Albumin/Globulin Ratio Lipase Urine Color Urine Clarity Urine pH Ur Specific Shade Urine Protein Urine Glucose (UA) Urine Ketones Urine Occult Blood Urine Nitrite Urine Bilirubin Urine Urobilinogen Ur Leukocyte Esterase Urine RBC Urine WBC Ur Squamous Epith Cells Urine Bacteria Ur Microscopic Review Urine Culture Comments PD MEDICAL DECISION MAKING - ED course Complexity details: re-evaluated patient, considered differential (UTI, kidney stone, obstruction, gastroenteritis, colitis), d/w patient ED course: 1733 had nausea vomiting and diarrhea and requesting for Zofran. [address] scan she just wants another dose of Zofran. 2035 patient states she is feeling much better she is sitting up and ready to go home. She states she has Zofran at home. Patient was informed of lab results. Departure - Departure Disposition: , Self Care Clinical Impression: Hypokalemia Vomiting Qualifiers: Vomiting Intractability: non-intractable Nausea presence: with nausea Diarrhea Qualifiers: Diarrhea type: unspecified type Qualified Code(s): R19.7 - Diarrhea, unspecified Condition: Stable Instructions: ED Diet Vomiting Diarrhea, Abdominal Pain, ED Diet High Potassium Comments: Your potassium is 3.3 today probably from the vomiting and diarrhea. Follow the diet list that was given to you.Take Zofran as needed. Clear liquids today small amounts but frequently. If tolerated advance to brat diet. If tolerated and advance to bland diet. Follow-up with your primary doctor for reevaluation. If worse return to the emergency room
[2018-03-12 18:08] LABS: BASOPHILS # (AUTO) 0.1 10^3/uL (0.0-0.1); BASOPHILS % (AUTO) 0.9 %; EOSINOPHILS # (AUTO) 0.2 10^3/uL (0.0-0.7); EOSINOPHILS % (AUTO) 1.8 %; HGB - HEMOGLOBIN 13.9 g/dL (12.0-16.0); LYMPHOCYTES # (AUTO) 1.9 10^3/uL (1.5-3.5); LYMPHOCYTES % (AUTO) 21.5 %; MEAN CORPUSCULAR HEMOGLOBIN 29.2 pg (27.0-31.0); MEAN CORPUSCULAR HGB CONC 32.8 g/dL (32.0-36.0); MEAN PLATELET VOLUME 8.5 fL (7.9-10.8); MONOCYTES # (AUTO) 0.7 10^3/uL (0.0-1.0); MONOCYTES % (AUTO) 7.4 %; NEUTROPHILS % (AUTO) 68.4 %; PLT - PLATELET COUNT 244 10^3/uL (130-450); RED BLOOD COUNT 4.77 10^6/uL (4.20-5.40); RED CELL DISTRIBUTION WIDTH 14.2 % (12.0-15.0); WHITE BLOOD COUNT 8.8 x10^3/uL (4.8-10.8)
[2018-03-12] MEDS: SODIUM CHLORIDE 0.9% 1,000 ML IV ONE (18:13)
[2018-03-12] MEDS: ONDANSETRON 4 MG/2 ML VIAL IVP STA ×2 (18:13→20:04)
[2018-03-12 18:18] LABS: BILIRUBIN,URINE NEGATIVE (NEGATIVE); GLUCOSE, URINE (UA) NEGATIVE (NEGATIVE); KETONES,URINE (UA) TRACE mg/dL (NEGATIVE); LEUKOCYTE ESTERASE, URINE TRACE (NEGATIVE); NITRITE,URINE NEGATIVE (NEGATIVE); OCCULT BLOOD,URINE LARGE (NEGATIVE); PH,URINE 5.5 PH (5.0-7.5); PROTEIN,URINE 30 mg/dL (NEGATIVE); UROBILINOGEN,URINE 0.2 (NORMAL) E.U./dL (NORMAL)
[2018-03-12 18:22] LABS: ALBUMIN 4.2 g/dL (3.2-5.5); ALBUMIN/GLOBULIN RATIO 1.3 (1.0-2.2); BILIRUBIN,TOTAL 0.6 mg/dL (0.2-1.0); CALCIUM 10.1 mg/dL (8.5-10.3); CREATININE 0.6 mg/dL (0.4-1.0); TOTAL PROTEIN 7.4 g/dL (6.7-8.2)
[2018-03-12 18:28] LABS: BACTERIA,URINE None Seen /HPF (None Seen); CLARITY,URINE CLOUDY (CLEAR); RBC,URINE TNTC /HPF (0-5); SQUAMOUS EPITHELIAL CELL,UR NONE SEEN (<= Few)
[2018-03-12] MEDS ORDERED: IOVERSOL 320 100 ML VIAL IVP ONE (19:22)
[2018-03-12 20:46] VITALS: BP 143/82
[2018-03-12] MEDS ORDERED: POTASSIUM CHLORIDE 10 MEQ CAPSULE PO SCH (21:00)
== END 2018-03-12 21:00 | disposition home or self-care (01) ==
LOC: ED 17:03
DX: E87.6 Hypokalemia (principal); R11.2 Nausea with vomiting, unspecified; R19.7 Diarrhea, unspecified; E11.9 Type 2 diabetes mellitus without complications; Z79.82 Long term (current) use of aspirin; Z79.4 Long term (current) use of insulin
CPT/HCPCS: 36415; 80053; 81001; 81003; 83690; 84484; 85025; 87086; 93005; 96361; 96374; 96375; 99283

== ENCOUNTER 2018-04-28 15:38 | Outpatient (CLI) | payer BC ==
[2018-04-28 15:59] LABS: BASOPHILS # (AUTO) 0.1 10^3/uL (0.0-0.1); BASOPHILS % (AUTO) 1.1 %; EOSINOPHILS # (AUTO) 0.2 10^3/uL (0.0-0.7); EOSINOPHILS % (AUTO) 2.8 %; LYMPHOCYTES # (AUTO) 1.8 10^3/uL (1.5-3.5); LYMPHOCYTES % (AUTO) 26.6 %; MEAN CORPUSCULAR HEMOGLOBIN 29.4 pg (27.0-31.0); MEAN CORPUSCULAR HGB CONC 32.8 g/dL (32.0-36.0); MEAN CORPUSCULAR VOLUME 89.4 fL (81.0-99.0); MEAN PLATELET VOLUME 8.3 fL (7.9-10.8); MONOCYTES # (AUTO) 0.5 10^3/uL (0.0-1.0); MONOCYTES % (AUTO) 7.9 %; NEUTROPHILS # (AUTO) 4.2 10^3/uL (1.5-6.6); NEUTROPHILS % (AUTO) 61.6 %; PLT - PLATELET COUNT 232 10^3/uL (130-450); RED BLOOD COUNT 4.76 10^6/uL (4.20-5.40); RED CELL DISTRIBUTION WIDTH 14.4 % (12.0-15.0); WHITE BLOOD COUNT 6.9 x10^3/uL (4.8-10.8)
[2018-04-28 16:17] LABS: ALBUMIN 3.9 g/dL (3.2-5.5); ALBUMIN/GLOBULIN RATIO 1.2 (1.0-2.2); ALKALINE PHOSPHATASE 60 IU/L (42-121); ALT ALANINE AMINOTRANSFERASE 37 IU/L (10-60); AST ASPARTATE AMINOTRANSFERASE 35 IU/L (10-42); BILIRUBIN,TOTAL 0.7 mg/dL (0.2-1.0); BUN - BLOOD UREA NITROGEN 13 mg/dL (6-20); CALCIUM 9.8 mg/dL (8.5-10.3); CARBON DIOXIDE - CO2 27 mmol/L (21-32); CHLORIDE 97 mmol/L (101-111); CHOL/HDL RATIO 6.2 (<4.4); CHOLESTEROL 231 mg/dL; CREATININE 0.5 mg/dL (0.4-1.0); GFR - MDRD 125 (>89); GLUCOSE 170 mg/dL (70-100); HDL CHOLESTEROL 37 mg/dL; SODIUM 134 mmol/L (135-145); TOTAL PROTEIN 7.2 g/dL (6.7-8.2)
[2018-04-28 16:25] LABS: HB2 TOTAL 14.9 g/dL; HEMOGLOBIN A1C 0.89 g/dL; HEMOGLOBIN A1C % 7.6 % (4.6-6.2)
[2018-04-28 16:39] LABS: LDL CHOLESTEROL,DIRECT 126 mg/dL; LDLD/HDL RATIO 3.4 (<4.4)
== END 2018-04-28 15:39 | disposition home or self-care (01) ==
LOC: LAB 15:38
PROVIDERS: ATTEND Internal Medicine
DX: C50.919 Malignant neoplasm of unspecified site of unspecified female breast (principal); E78.5 Hyperlipidemia, unspecified; E11.9 Type 2 diabetes mellitus without complications
CPT/HCPCS: 36415; 80053; 80061; 83036; 83721; 84443; 85025

== ENCOUNTER 2018-08-23 08:06 | Emergency (ER) | payer BC ==
[2018-08-23 08:29] VITALS: BP 144/88
[2018-08-23] MEDS ORDERED: KETOROLAC 30 MG/ML VIAL IVP STA (08:37)
[2018-08-23] MEDS ORDERED: KETOROLAC 60 MG/2 ML VIAL IM STA (08:46)
[2018-08-23] MEDS ORDERED: TAMSULOSIN 0.4 MG CAPSULE PO STA (08:47)
--- NOTE | 2018-08-23 08:50 | ED Physician Documentation ---
PD HPI ABD PAIN - Stated complaint Stated Complaint: ABD PAIN/FEMALE - Chief complaint Chief Complaint: Abd Pain - History obtained from History obtained from: Patient - History of Present Illness Timing - onset: How many weeks ago (1) Timing - details: Still present, Waxing and waning Radiation: Left flank Similar symptoms before: Diagnosis (history of kidney stones.) - Additional information Additional information: The patient is a 62-year-old female who states, "I have a kidney stone." She complains of left flank pain that has been waxing and waning for the past week. She normally takes Toradol and tamsulosin for the pain, but she has run out of both medications. She has a history of frequent kidney stones, and a history of sarcoid. She denies fever, nausea or vomiting, or dysuria. She reports having a "jar full" of kidney stones on her dresser. She does not want another CT scan. 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 Review of Systems Constitutional: denies: Fever Nose: denies: Congestion Throat: denies: Sore throat Cardiac: denies: Chest pain / pressure Respiratory: denies: Dyspnea, Cough GI: reports: Abdominal Pain (left flank). denies: Nausea, Vomiting : denies: Dysuria Skin: denies: Lesions Musculoskeletal: reports: Back pain (left flank) Neurologic: denies: Focal weakness, Numbness, Headache PD PAST MEDICAL HISTORY - Past Medical History Cardiovascular: None Respiratory: CPAP use Endocrine/Autoimmune: Type 2 diabetes [employer]: Breast cancer : Kidney stones HEENT: None, Dental implants Psych: None Musculoskeletal: Osteoporosis, Other Other Past Medical History: Sarcoidosis - Past Surgical History Past Surgical History: Yes General: Appendectomy Ortho: Arthroscopic surgery /[employer]: Hysterectomy, Mastectomy - Present Medications Home Medications: Ambulatory Orders Medication Instructions Recorded Confirmed Vit C/Ascorbate Ca/Ascorb Sod 1,000 mg PO DAILY 12/01/12 02/25/18 [Vitamin C 500 mg/15 ml Liquid] Lactobacillus Rhamnosus GG 1 cap PO DAILY 02/24/13 02/25/18 [Probiotic] Aspirin Chewable [St Nawaf 81 mg PO DAILY 09/29/13 02/25/18 Aspirin] Calcium Carbonate/Vitamin D3 600 mg PO DAILY 09/29/13 02/25/18 [Calcium + Vitamin D Tablet] Glucosa Mix 2Kcl/Chondroitin Mix 1 each PO QID 09/29/13 02/25/18 [Glucosamine & Chondroitin Cap] metFORMIN [Glucophage] 500 mg PO BIDWM 09/29/13 02/25/18 Allopurinol 200 mg PO DAILY 10/26/14 02/25/18 Hydrochlorothiazide 25 mg PO DAILY 10/26/14 02/25/18 Biotin 300 mg PO DAILY 06/26/16 02/25/18 Ibuprofen 400 mg PO DAILY 06/26/16 02/25/18 Anastrozole [Arimidex] 1 mg PO DAILY 30 Days #30 tablet 03/27/17 02/25/18 Denosumab [Prolia] 60 mg SQ Q6M 08/27/17 02/25/18 Insulin NPH Human Isophane 20 unit SUBQ DAILY 10/03/17 02/25/18 [Humulin N] Hydrocodone/Ibuprofen 2 - 3 each PO Q6H PRN 10/04/17 04/05/18 [Hydrocodone-Ibuprofen 7.5-200] Gabapentin 2 cap PO TID 06/21/18 06/21/18 Ketorolac [Toradol] 10 mg PO Q6H PRN #20 tablet 08/23/18 Tamsulosin [Flomax] 0.4 mg PO DAILY #10 capsule 08/23/18 cephALEXin [Cephalexin] 500 mg PO TID #20 tablet 08/23/18 - Allergies Allergies/Adverse Reactions: Allergies Allergy/AdvReac Type Severity Reaction Status Date / Time latex AdvReac Mild Sensitivity/Red Verified 01/11/17 15:40 irritated skin - Social History Does the pt smoke?: No Smoking Status: Never smoker Does the pt drink ETOH?: No Does the pt have substance abuse?: No - Immunizations Immunizations are current?: Yes - POLST Patient has POLST: No PD ED PE NORMAL - Vitals Vital signs reviewed: Yes (Borderline hypertension initially.) - General General: Alert and oriented X 3, Well developed/nourished - HEENT HEENT: Atraumatic, Pharynx benign - Neck Neck: No adenopathy, No JVD - Cardiac Cardiac: RRR - Respiratory Respiratory: No respiratory distress, Clear bilaterally - Abdomen Abdomen: Soft, Non tender - Back Back: No spinal TTP, Other (Tenderness to percussion in the left flank.) - Derm Derm: No rash - Extremities Extremities: No edema, No calf tenderness / cord - Neuro Neuro: Alert and oriented X 3, No motor deficit, Normal speech Results - Vitals Vitals: Oxygen O2 Source Room air - Labs Labs: Microbiology 08/23/18 08:40 Urine Culture - Final Urine,Random NO AEROBIC GROWTH AT 24 HOURS Laboratory Tests 08/23/18 08:40 Urine Color YELLOW Urine Clarity SL. CLOUDY Urine pH 5.5 Ur Specific Clancy 1.020 Urine Protein NEGATIVE Urine Glucose (UA) 100 H Urine Ketones NEGATIVE Urine Occult Blood NEGATIVE Urine Nitrite NEGATIVE Urine Bilirubin NEGATIVE Urine Urobilinogen 0.2 (NORMAL) Ur Leukocyte Esterase MODERATE H Urine RBC 0-5 Urine WBC 11-25 H Ur Squamous Epith Cells FEW Squamous Urine Bacteria Few Ur Microscopic Review INDICATED Urine Culture Comments INDICATED PD MEDICAL DECISION MAKING - ED course Complexity details: reviewed results, re-evaluated patient, considered differential, d/w patient ED course: The patient's presentation is consistent with kidney stone, which is a common scenario for her. She also has evidence of urinary tract infection, with positive leukouria and bacteriuria. Her presentation does not suggest pyelonephritis nor sepsis. Treatment in the emergency department included administration of ketorolac 60 mg IM, tamsulosin 0.4 mg orally, and cephalexin 500 mg orally. She is being discharged with prescriptions for Toradol, Flomax, and cephalexin. She plans to follow-up with your primary physician in 3 days. I discussed with her potentially worrisome signs or symptoms that should prompt reevaluation in the emergency department. Departure - Departure Disposition: 01 Home, Self Care Clinical Impression: Renal colic on left side Urinary tract infection Qualifiers: Urinary tract infection type: acute cystitis Hematuria presence: with hematuria Qualified Code(s): N30.01 - Acute cystitis with hematuria Condition: Stable Instructions: ED UTI Cystitis Female, ED Stone Renal W Colic Prescriptions: cephALEXin [Cephalexin] 500 mg PO TID #20 tablet Ketorolac [Toradol] 10 mg PO Q6H PRN #20 tablet PRN Reason: Pain Tamsulosin [Flomax] 0.4 mg PO DAILY #10 capsule Comments: Drink plenty of fluids, including cranberry juice. Take cephalexin 3 times daily as prescribed. You can take Toradol as needed for pain. You can take tamsulosin daily as prescribed. Follow-up with your primary physician in 3 days as scheduled. Return to the emergency department if you develop increasing pain, persistent vomiting, fever with shaking chills, or otherwise worsening symptoms. Discharge Date/Time: 08/23/18 09:54
[2018-08-23 09:06] LABS: BILIRUBIN,URINE NEGATIVE (NEGATIVE); CLARITY,URINE SL. CLOUDY (CLEAR); GLUCOSE, URINE (UA) 100 mg/dL (NEGATIVE); KETONES,URINE (UA) NEGATIVE (NEGATIVE); LEUKOCYTE ESTERASE, URINE MODERATE (NEGATIVE); NITRITE,URINE NEGATIVE (NEGATIVE); OCCULT BLOOD,URINE NEGATIVE (NEGATIVE); PH,URINE 5.5 PH (5.0-7.5); PROTEIN,URINE NEGATIVE (NEGATIVE); UROBILINOGEN,URINE 0.2 (NORMAL) E.U./dL (NORMAL)
[2018-08-23 09:13] LABS: BACTERIA,URINE Few /HPF (None Seen); RBC,URINE 0-5 /HPF (0-5); SQUAMOUS EPITHELIAL CELL,UR FEW Squamous (<= Few)
[2018-08-23] MEDS ORDERED: cephALEXin 250 MG CAPSULE PO STA (09:33)
== END 2018-08-23 09:54 | disposition home or self-care (01) ==
LOC: ED 08:06
DX: N23 Unspecified renal colic (principal); N30.01 Acute cystitis with hematuria; E11.9 Type 2 diabetes mellitus without complications; Z79.4 Long term (current) use of insulin
CPT/HCPCS: 81001; 87086; 96372; 96374; 99283; 99284; A9270; 81003

== ENCOUNTER 2018-09-14 10:13 | Outpatient (CLI) | payer BC ==
--- NOTE | 2018-09-17 08:33 | MRI Report ---
Reason: BENIGN NEOPLASM OF MENINGES, UNSPECIFIED Procedure Date: 09/14/2018 Accession Number: [id number] / [id number] Procedure: MRI - Brain W/O CPT Code: FULL RESULT: EXAM: MRI BRAIN WITHOUT CONTRAST EXAM DATE: 09/14/2018 11:10 AM. CLINICAL HISTORY: 62-year-old woman with new onset of headaches and history of benign neoplasm of the meninges. COMPARISON: BRAIN W/WO 06/20/2014 7:52 AM. TECHNIQUE: Multiplanar, multisequence T1-weighted and fluid-sensitive MR sequences of the brain were performed. Sequences optimized for routine evaluation. Other: None. IV Contrast: None. FINDINGS: Parenchyma: No evidence of acute infarct on diffusion weighted sequence. The parenchyma demonstrates mild to moderate burden of nonspecific FLAIR hyperintensities in the periventricular and deep cerebral white matter, similar to the 06/20/2014 MRI and a common finding in this age group. No signal abnormality in the parenchyma adjacent to the left cavernous sinus and left frontal convexity extra-axial masses described below. No evidence of prior hemorrhage on susceptibility weighted sequence. Pituitary: Extra axial mass lesion invades the sella from the left cavernous sinus. Pituitary is displaced to the right and margins are difficult to distinguish, as before. Ventricles: Ventricles are symmetric and normal in size for age. Extra-axial Spaces: 2 mass lesions are again demonstrated, both of which demonstrated avid homogeneous enhancement on the 06/20/2014 exam. 1. Left cavernous sinus: Mass fills the cavernous sinus and extends medially into the sella, laterally into the middle cranial fossa, and posteriorly into the prepontine cistern. There is deformity of the left ventral caterina secondary to mass-effect, as before. Size and extent is not significantly changed, but sensitivity is limited on this noncontrast exam. 2. Left frontal convexity: Approximately 8 mm in thickness and 15 mm in base diameter on coronal images, not significantly changed compared to the 2015 exam. Small enhancing extra-axial lesion along the roof of the right orbit seen on the prior exam is not well demonstrated on this noncontrast exam. Orbits: Unremarkable. Sinuses: Paranasal sinuses and mastoid air cells are clear. Major Vascular Flow Voids: Intact. IMPRESSION: 1. No acute intracranial abnormality. Specifically, no evidence of acute infarct, hemorrhage, or new edema compared to the 06/20/2009 exam. 2. Mass lesion fills the left cavernous sinus and extends into the sella, left middle cranial fossa, and prepontine cistern, not significantly changed compared to the 06/20/2014 exam. This lesion demonstrated avid enhancement on the prior exam, most consistent with meningioma. 3. Extra-axial mass lesion overlying the left frontal convexity measuring approximate 8 mm in thickness, not significantly changed compared to the 2015 exam. This lesion also demonstrated avid enhancement on the prior exam, most consistent with meningioma. 4. Small enhancing extra-axial mass overlying the right orbital roof seen on the prior exam is not well demonstrated on this noncontrast exam. RADIA
== END 2018-09-14 10:14 | disposition home or self-care (01) ==
LOC: DI 10:13
PROVIDERS: ATTEND Internal Medicine Hematology & Oncology
DX: D32.9 Benign neoplasm of meninges, unspecified (principal)
CPT/HCPCS: 70551

== ENCOUNTER 2019-06-01 13:41 | Emergency (ER) | payer OTHER, BC ==
[2019-06-01 13:52] VITALS: BP 151/80
--- NOTE | 2019-06-01 14:09 | ED Physician Documentation ---
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 It is not severe though and she does not need any pain medication she says. 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 : Kidney stones HEENT: None, Dental implants Psych: None Musculoskeletal: Osteoporosis, Other - Past Surgical History Past Surgical History: Yes General: Appendectomy Ortho: Arthroscopic surgery /TILE SHADER: Hysterectomy, Mastectomy - Present Medications Home Medications: Ambulatory Orders Medication Instructions Recorded Confirmed Vit C/Ascorbate Calcium,Sodium 1,000 mg PO DAILY 12/01/12 02/24/19 [Vitamin C 500 mg/15 ml Liquid] Lactobacillus Rhamnosus GG 1 cap PO DAILY 02/24/13 02/24/19 [Probiotic] Aspirin Chewable [St Nawaf 81 mg PO DAILY 09/29/13 02/24/19 Aspirin] Calcium Carbonate/Vitamin D3 600 mg PO DAILY 09/29/13 02/24/19 [Calcium + Vitamin D Tablet] Glucosa Mix 2Kcl/Chondroitin Mix 1 each PO QID 09/29/13 02/24/19 [Glucosamine & Chondroitin Cap] metFORMIN [Glucophage] 500 mg PO BIDWM 09/29/13 02/24/19 Hydrochlorothiazide 25 mg PO DAILY 10/26/14 02/24/19 allopurinoL [Allopurinol] 200 mg PO DAILY 10/26/14 02/24/19 Biotin 300 mg PO DAILY 06/26/16 02/24/19 Ibuprofen 400 mg PO DAILY 06/26/16 02/24/19 Anastrozole [Arimidex] 1 mg PO DAILY 30 Days #30 tablet 03/27/17 02/24/19 Denosumab [Prolia] 60 mg SQ Q6M 08/27/17 02/24/19 Insulin NPH Human Isophane 25 unit SUBQ DAILY 10/03/17 02/24/19 [Humulin N] Hydrocodone/Ibuprofen 3 each PO Q6H PRN 10/04/17 02/24/19 [Hydrocodone-Ibuprofen 7.5-200] Tamsulosin [Flomax] 0.4 mg PO DAILY #10 capsule 08/23/18 02/24/19 Gabapentin 4 cap PO TID 02/24/19 02/24/19 Hydrocodone/Ibuprofen 1 each PO Q8HR PRN 02/24/19 02/24/19 [Hydrocodone-Ibuprofen 7.5-200] buPROPion [Wellbutrin Sr] 100 mg PO DAILY 06/01/19 06/01/19 - Allergies Allergies/Adverse Reactions: Allergies Allergy/AdvReac Type Severity Reaction Status Date / Time latex AdvReac Mild Sensitivity/Red Verified 06/01/19 14:32 irritated skin - Social History Does the pt smoke?: No Smoking Status: Never smoker Does the pt drink ETOH?: No Does the pt have substance abuse?: No - Immunizations Immunizations are current?: Yes - POLST Patient has POLST: No PD ED PE NORMAL - Vitals Vital signs reviewed: Yes - General General: Alert and oriented X 3, No acute distress - Extremities Extremities: Other (Mild tenderness of the anterior joint line and tibial plateau of the right knee with small effusion. No limited range of motion. Li gamentous testing is all normal as is grind testing.) - Neuro Neuro: Alert and oriented X 3, Normal speech Results - Vitals Vitals: Vital Signs - 24 hr 06/01/19 13:48 Temperature 36 C L Heart Rate 80 Respiratory 18 Rate Blood Pressure 151/80 H O2 Saturation 99 Oxygen O2 Source Room air - Rads (name of study) R knee 4v Radiology: EMP read contemporaneously (DJD without fracture, small effusion) Departure - Departure Disposition: 01 Home, Self Care Clinical Impression: Strain of right knee Qualifiers: Encounter type: initial encounter Qualified Code(s): S86.911A - Strain of unspecified muscle(s) and tendon(s) at lower leg level, right leg, initial encounter Condition: Good Record reviewed to determine appropriate education?: Yes Instructions: ED Meniscal Injury Knee Poss Follow-Up: [facility] [Provider Group] - Within 1 week Comments: X-ray today shows a lot of arthritis, a very small amount of fluid in the joint. Follow-up with the orthopedic surgeon if not better in a very short timeframe, return for new or worsening symptoms.
--- NOTE | 2019-06-01 14:33 | XRAY Report ---
Reason: knee inj Procedure Date: 06/01/2019 Accession Number: [id number] / [id number] Procedure: XR - Knee 4 View RT CPT Code: Final Report FULL RESULT: EXAM: RIGHT KNEE RADIOGRAPHY EXAM DATE: 06/01/2019 02:25 PM. CLINICAL HISTORY: Knee injury. COMPARISON: Right knee radiographs from 12/10/2017. TECHNIQUE: 4 views. FINDINGS: Bones: No acute fracture. Joints: No dislocation or subluxation. There is mild joint space narrowing in the medial compartment. Suspect joint space narrowing in the patellofemoral compartment although this is not well assessed on provided views. Tricompartmental osteophytic spurring is present, most prominent in the patellofemoral compartment. Small joint effusion is present as evidenced by opacification of Hoffa's fat pad. Soft Tissues: Soft tissue phleboliths are present around the knee. IMPRESSION: 1. No acute fracture or malalignment. 2. 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 3. Small joint effusion. RADIA
== END 2019-06-01 14:43 | disposition home or self-care (01) ==
LOC: ED 13:41
DX: S86.911A Strain of unspecified muscle(s) and tendon(s) at lower leg level, right leg, initial encounter (principal); X50.1XXA Overexertion from prolonged static or awkward postures, initial encounter; Y99.0 Civilian activity done for income or pay; E11.9 Type 2 diabetes mellitus without complications; Z79.4 Long term (current) use of insulin
CPT/HCPCS: 1040M; 73564; 99283

== ENCOUNTER 2019-06-04 07:51 | Emergency (ER) | payer BC ==
[2019-06-04] MEDS ORDERED: DEXAMETHASONE 10 MG/ML VIAL PO STA (08:19)
[2019-06-04] MEDS ORDERED: KETOROLAC 60 MG/2 ML VIAL IM STA (08:19)
[2019-06-04] MEDS ORDERED: CHERRY SYRUP 10 ML UDC PO ONE (08:19)
--- NOTE | 2019-06-04 08:21 | ED Physician Documentation ---
PD HPI BACK PAIN - Stated complaint Stated Complaint: LT LEG PAIN - Chief complaint Chief Complaint: Back Pain - History obtained from History obtained from: Patient - History of Present Illness Timing - onset: How many days ago (2) Timing - duration: Days (2) Timing - details: Gradual onset, Still present Location: Lower, Left Quality: Pain, Spasm, Sharp Associated symptoms: No: Fever, Weakness, Numbness, Incontinent of urine, Unable to urinate, Hematuria, Incontinent of stool Improves with: Rest, Position Worsened by: Movement, Lifting, Twisting Contributing factors: Other (weight lifting) Similar symptoms before: Diagnosis (kidney stone, back pain) Recently seen: Emergency Dept - Additional information Additional information: 63-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 She has some numbness to her left toes as well. She has a history of some peripheral neuropathy she has recurrent breast cancer and is on chemotherapy. She has a history of frequent kidney stone as well. Review of Systems Constitutional: denies: Fever Eyes: denies: Decreased vision Ears: denies: Ear pain Nose: denies: Congestion Throat: denies: Sore throat Cardiac: denies: Chest pain / pressure, Palpitations Respiratory: denies: Dyspnea, Cough GI: denies: Abdominal Pain, Nausea, Vomiting : denies: Dysuria, Frequency Skin: denies: Rash Musculoskeletal: reports: Back pain. denies: Neck pain, Extremity pain Neurologic: reports: Numbness. 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: Breast cancer : Kidney stones HEENT: None, Dental implants Psych: None Musculoskeletal: Osteoporosis, Other - Past Surgical History Past Surgical History: Yes General: Appendectomy Ortho: Arthroscopic surgery /DATA ANALYTICS DEVELOPER: Hysterectomy, Mastectomy - Present Medications Home Medications: Ambulatory Orders Medication Instructions Recorded Confirmed Vit C/Ascorbate Calcium,Sodium 1,000 mg PO DAILY 12/01/12 02/24/19 [Vitamin C 500 mg/15 ml Liquid] Lactobacillus Rhamnosus GG 1 cap PO DAILY 02/24/13 02/24/19 [Probiotic] Aspirin Chewable [St Nawaf 81 mg PO DAILY 09/29/13 02/24/19 Aspirin] Calcium Carbonate/Vitamin D3 600 mg PO DAILY 09/29/13 02/24/19 [Calcium + Vitamin D Tablet] Glucosa Mix 2Kcl/Chondroitin Mix 1 each PO QID 09/29/13 02/24/19 [Glucosamine & Chondroitin Cap] metFORMIN [Glucophage] 500 mg PO BIDWM 09/29/13 02/24/19 Hydrochlorothiazide 25 mg PO DAILY 10/26/14 02/24/19 allopurinoL [Allopurinol] 200 mg PO DAILY 10/26/14 02/24/19 Biotin 300 mg PO DAILY 06/26/16 02/24/19 Ibuprofen 400 mg PO DAILY 06/26/16 02/24/19 Anastrozole [Arimidex] 1 mg PO DAILY 30 Days #30 tablet 03/27/17 02/24/19 Denosumab [Prolia] 60 mg SQ Q6M 08/27/17 02/24/19 Insulin NPH Human Isophane 25 unit SUBQ DAILY 10/03/17 02/24/19 [Humulin N] Hydrocodone/Ibuprofen 3 each PO Q6H PRN 10/04/17 02/24/19 [Hydrocodone-Ibuprofen 7.5-200] Tamsulosin [Flomax] 0.4 mg PO DAILY #10 capsule 08/23/18 02/24/19 Gabapentin 4 cap PO TID 02/24/19 02/24/19 Hydrocodone/Ibuprofen 1 each PO Q8HR PRN 02/24/19 02/24/19 [Hydrocodone-Ibuprofen 7.5-200] buPROPion [Wellbutrin Sr] 100 mg PO DAILY 06/01/19 06/01/19 Tamsulosin HCl [Flomax] 0.4 mg PO DAILY #10 cap.er.24h 06/04/19 - Allergies Allergies/Adverse Reactions: Allergies Allergy/AdvReac Type Severity Reaction Status Date / Time latex AdvReac Mild Sensitivity/Red Verified 06/04/19 08:04 irritated skin - Social History Does the pt smoke?: No Smoking Status: Never smoker Does the pt drink ETOH?: No Does the pt have substance abuse?: No - Immunizations Immunizations are current?: Yes - POLST Patient has POLST: No PD ED PE NORMAL - Vitals Vital signs reviewed: Yes (hypertensive ) - General General: Alert and oriented X 3, No acute distress, Well developed/nourished - HEENT HEENT: Atraumatic, PERRL, EOMI - Neck Neck: Supple, no meningeal sign, No bony TTP - Respiratory Respiratory: No respiratory distress - Back Back: No CVA TTP, No spinal TTP, Other (mild paraspinous muscle tenderness with extension into the sciatic notch) - Derm Derm: Normal color, Warm and dry - Extremities Extremities: No deformity, No edema, No calf tenderness / cord - Neuro Neuro: Alert and oriented X 3, engineering programmer 2-12 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 PD MEDICAL DECISION MAKING - ED course Complexity details: reviewed old records, reviewed results, re-evaluated patient, considered differential, d/w patient ED course: 63-year-old female with complicated past medical history has sciatica by history into the left groin. She was concerned about the possibility of kidney stone I do not see evidence of hydronephrosis on the bedside ultrasound. She is administered dexamethasone 10 mg orally and 60 mg of Toradol IM. She will follow-up with her primary as needed. I did consider possibility of DVT and found this to be remote by history and physical examination did not pursue further imaging. Her history and examination are consistent with acute sciatica and I have shared this with the patient and the expectations of help with treatment. Departure - Departure Disposition: 01 Home, Self Care Clinical Impression: Sciatica Qualifiers: Laterality: left Qualified Code(s): M54.32 - Sciatica, left side Condition: Stable Instructions: ED Sciatica Follow-Up: Bekah Hagen ARNP, STRUCTURAL STEEL ERECTION SUPERVISOR-C [Primary Care Provider] - Prescriptions: Tamsulosin HCl [Flomax] 0.4 mg PO DAILY #10 cap.er.24h
[2019-06-04 08:52] VITALS: BP 142/81
== END 2019-06-04 08:52 | disposition home or self-care (01) ==
LOC: ED 07:51
DX: M54.42 Lumbago with sciatica, left side (principal); E11.42 Type 2 diabetes mellitus with diabetic polyneuropathy; Z79.4 Long term (current) use of insulin; Z87.442 Personal history of urinary calculi; C79.81 Secondary malignant neoplasm of breast; Z85.3 Personal history of malignant neoplasm of breast; Z79.82 Long term (current) use of aspirin
CPT/HCPCS: 96372; 99283; 99284; A9270

== ENCOUNTER 2019-06-17 10:11 | Outpatient (CLI) | payer BC ==
--- NOTE | 2019-06-18 10:41 | XRAY Report ---
Reason: BACK PAIN, OSTEOPOROSIS Procedure Date: 06/17/2019 Accession Number: [id number] / [id number] Procedure: XR - Lumbar Spine 2 View CPT Code: Final Report FULL RESULT: EXAM: THORACIC AND LUMBOSACRAL SPINE RADIOGRAPHY EXAM DATE: 06/17/2019 10:21 AM. CLINICAL HISTORY: Back pain, osteoporosis. COMPARISONS: THORACIC SPINE 2 VIEW 06/17/2019 10:21 AM LUMBAR SPINE W/WO 11/19/2014 2:45 PM. TECHNIQUE: 3 views of the thoracic spine and 2 views of the lumbar spine. FINDINGS: Alignment: No definite acute malalignment. Probable mild degenerative anterolisthesis of L4 and L5. Bones: Mild osteopenia. No fractures or bone lesions. Degenerative changes: Mild diffuse disk level degenerative changes throughout the thoracic and lumbar spine with the exception of the L2-L3 level where there is moderate disk height loss. Soft Tissues: Right Port-A-Cath present. The visualized bowel gas pattern is normal. IMPRESSION: 1. No acute abnormalities seen in the thoracic or lumbar spine with underlying mild osteopenia. 2. Moderate L2-L3 disk height loss. Mild degenerative changes elsewhere throughout the thoracic and lumbar spine. RADIA
--- NOTE | 2019-06-18 10:41 | XRAY Report ---
Reason: BACK PAIN, OSTEOPOROSIS Procedure Date: 06/17/2019 Accession Number: [id number] / [id number] Procedure: XR - Thoracic Spine 2 View CPT Code: Final Report FULL RESULT: EXAM: THORACIC AND LUMBOSACRAL SPINE RADIOGRAPHY EXAM DATE: 06/17/2019 10:21 AM. CLINICAL HISTORY: Back pain, osteoporosis. COMPARISONS: THORACIC SPINE 2 VIEW 06/17/2019 10:21 AM LUMBAR SPINE W/WO 11/19/2014 2:45 PM. TECHNIQUE: 3 views of the thoracic spine and 2 views of the lumbar spine. FINDINGS: Alignment: No definite acute malalignment. Probable mild degenerative anterolisthesis of L4 and L5. Bones: Mild osteopenia. No fractures or bone lesions. Degenerative changes: Mild diffuse disk level degenerative changes throughout the thoracic and lumbar spine with the exception of the L2-L3 level where there is moderate disk height loss. Soft Tissues: Right Port-A-Cath present. The visualized bowel gas pattern is normal. IMPRESSION: 1. No acute abnormalities seen in the thoracic or lumbar spine with underlying mild osteopenia. 2. Moderate L2-L3 disk height loss. Mild degenerative changes elsewhere throughout the thoracic and lumbar spine. RADIA
== END 2019-06-17 10:12 | disposition home or self-care (01) ==
LOC: DI 10:11
PROVIDERS: ATTEND Nurse Practitioner
DX: M51.36 Other intervertebral disc degeneration, lumbar region (principal); M51.34 Other intervertebral disc degeneration, thoracic region; M85.88 Other specified disorders of bone density and structure, other site; M81.0 Age-related osteoporosis without current pathological fracture
CPT/HCPCS: 72070; 72100

== ENCOUNTER 2019-07-07 11:38 | Outpatient (CLI) | payer BC ==
--- NOTE | 2019-07-07 15:39 | Mammography Report ---
Reason: ROUTINE MAMMO Procedure Date: 07/07/2019 Accession Number: [id number] / [id number] Procedure: MGN - Screen Mammo Impl w/Terell CPT Code: Final Report FULL RESULT: EXAM: Screen Mammo Impl w/Terell DATE: 07/07/2019 12:14 PM CLINICAL HISTORY: Routine screening. Nulliparous patient. History of left breast cancer with radiation and chemotherapy. Status post bilateral mastectomy with implant reconstruction. Mother with breast cancer. TECHNIQUE: (B) - Bilateral CC and MLO views were obtained. COMPARISON: 01/21/2010 mammogram. 09/20/2016 and 07/01/2010 breast MRI. PARENCHYMAL PATTERN: (F) - The breasts demonstrate diffuse fatty replacement bilaterally. FINDINGS: Postsurgical changes of bilateral mastectomy with silicone implants are present. There are no suspicious masses, calcifications, or suspicious areas of distortion. Right Port-A-Cath. IMPRESSION: Negative examination. BI-RADS category 1. RECOMMENDATION: (12MOS) - Recommend 12 month follow-up exam. BI-RADS CATEGORY: (1) - Negative. STANDARD QUALIFYING STATEMENTS: 1. This examination was not reviewed with the aid of Computer-Aided Detection (CAD). 2. A negative or benign imaging report should not preclude biopsy if clinically suspicious findings are present. 3. Dense breasts may obscure an underlying neoplasm. 4. This examination was reviewed without the aid of 3D breast imaging (tomosynthesis).
== END 2019-07-07 11:39 | disposition home or self-care (01) ==
LOC: DI.N 11:38
DX: Z12.31 Encounter for screening mammogram for malignant neoplasm of breast (principal); Z85.3 Personal history of malignant neoplasm of breast; Z90.13 Acquired absence of bilateral breasts and nipples; Z98.82 Breast implant status; Z80.3 Family history of malignant neoplasm of breast
CPT/HCPCS: 77063; 77067

== ENCOUNTER 2019-07-11 09:34 | Outpatient (CLI) | payer BC ==
--- NOTE | 2019-07-15 11:32 | DEXA Report ---
Reason: OSTEOPOROSIS Procedure Date: 07/11/2019 Accession Number: [id number] / [id number] Procedure: DEX - Dexa Spine and/or Hip CPT Code: Final Report FULL RESULT: EXAM: Dexa Spine and/or Hip DATE: 07/11/2019 10:13 AM CLINICAL HISTORY: OSTEOPOROSIS FOLLOW-UP TECHNIQUE: Dual energy x-ray absorptiometry (DXA) was performed on a [employer] System. Regions measured are the AP Spine, femoral neck, and if needed forearm. COMPARISON: 10/28/2013. In accordance with the International Society for Clinical Densitometry (ISCD) guidelines, data from previous exams may be reanalyzed using current recommendations and techniques. This is done to allow a more accurate basis for comparison with the current study. FINDINGS: The data for the lumbar spine is as follows: BMD (g/cm/cm) T-SCORE Z-SCORE REGION L1 1.032 -0.8 -0.6 L2 1.121 -0.7 -0.4 L3 1.114 -0.7 -0.5 L4 1.169 -0.3 0.0 TOTAL 1.113 -0.6 -0.3 NOTE: All evaluable vertebrae are used for classification The data for the hip is as follows: BMD (g/cm/cm) T-SCORE Z-SCORE REGION Neck 1.028 -0.1 0.5 TOTAL 1.134 1.0 1.2 NOTE: The femoral neck or total proximal femur, whichever is lowest, is used for classification. IMPRESSION: THE WHO CLASSIFICATION BASED ON THE INTERNATIONAL REFERENCE STANDARD IS NORMAL. THE FRACTURE RISK IS NOT INCREASED. RECOMMENDATION: Patients with diagnosis of osteoporosis or osteopenia should have regular bone mineral density assessment. For those eligible for Medicare, routine testing is allowed once every 2 years. Testing frequency can be increased for patients who have rapidly progressing disease or for those who are receiving medical therapy to restore bone mass. COMMENT: World Health Organization (WHO) definitions for osteoporosis and osteopenia: NORMAL BMD: T-score at -1.0 or higher, fracture risk is low OSTEOPENIA BMD: T-score between -1.0 and -2.5, fracture risk is increased. OSTEOPOROSIS BMD: T-score at -2.5 or lower, fracture risk is high. National Osteoporosis Foundation recommends: 1. Obtain adequate dietary calcium (at least 1200 mg per day) and vitamin D (400-800 international units per day). 2. Participate, as appropriate, in regular weightbearing and muscle-strengthening exercise. 3. Avoid tobacco use and reduce alcohol and caffeine intake. 4. For more detailed information see the website at www.NOF.org.
== END 2019-07-11 09:35 | disposition home or self-care (01) ==
LOC: DI 09:34
PROVIDERS: ATTEND Nurse Practitioner
DX: M81.0 Age-related osteoporosis without current pathological fracture (principal)
CPT/HCPCS: 77080

== ENCOUNTER 2019-07-19 19:54 | Emergency (ER) | payer OTHER, BC ==
--- NOTE | 2019-07-19 20:32 | ED Physician Documentation ---
PD HPI ABD PAIN - Stated complaint Stated Complaint: LT SIDE ABD PX - FELL UP STAIRS - Chief complaint Chief Complaint: Trauma Ch/Bk - History obtained from History obtained from: Patient - History of Present Illness Timing - onset: Enter time (18:30), Today Timing - details: Abrupt onset Pain level now: 5 Quality: Pain Location: LUQ Radiation: Chest (left lower anterior chest) Improved by: Laying still Worsened by: Moving, Palpation Associated symptoms: No: Nausea, Vomiting Similar symptoms before: Has not had sx before Recently seen: Not recently seen - Additional information Additional information: patient was [facility] [employer] and was walking up stairs to bring oxygen tank to a patient. She tripped walking up last stair, falling forwards onto the oxygen tank to left low anterior chest wall. This was approximately 6:30 PM tonight. C/O left lower anterior chest wall pain and LUQ pain, worse with movement, palpation. Review of Systems Cardiac: reports: Chest pain / pressure Respiratory: denies: Dyspnea, Cough, Hemoptysis GI: reports: Abdominal Pain. 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 : Kidney stones HEENT: None, Dental implants Psych: None Musculoskeletal: Osteoporosis, Other - Past Surgical History Past Surgical History: Yes General: Appendectomy Ortho: Arthroscopic surgery /SHIRT HEMMER: Hysterectomy, Mastectomy - Present Medications Home Medications: Ambulatory Orders Medication Instructions Recorded Confirmed Vit C/Ascorbate Calcium,Sodium 1,000 mg PO DAILY 12/01/12 07/19/19 [Vitamin C 500 mg/15 ml Liquid] Lactobacillus Rhamnosus GG 1 cap PO DAILY 02/24/13 07/19/19 [Probiotic] Aspirin Chewable [St Nawaf 81 mg PO DAILY 09/29/13 07/19/19 Aspirin] Calcium Carbonate/Vitamin D3 600 mg PO DAILY 09/29/13 07/19/19 [Calcium + Vitamin D Tablet] Glucosa Mix 2Kcl/Chondroitin Mix 1 each PO QID 09/29/13 07/19/19 [Glucosamine & Chondroitin Cap] metFORMIN [Glucophage] 500 mg PO BIDWM 09/29/13 07/19/19 Hydrochlorothiazide 25 mg PO DAILY 10/26/14 07/19/19 allopurinoL [Allopurinol] 200 mg PO DAILY 10/26/14 07/19/19 Biotin 300 mg PO DAILY 06/26/16 07/19/19 Ibuprofen 400 mg PO DAILY 06/26/16 07/19/19 Denosumab [Prolia] 60 mg SQ Q6M 08/27/17 07/19/19 Insulin NPH Human Isophane 25 unit SUBQ DAILY 10/03/17 07/19/19 [Humulin N] Hydrocodone/Ibuprofen 3 each PO Q6H PRN 10/04/17 07/19/19 [Hydrocodone-Ibuprofen 7.5-200] Tamsulosin [Flomax] 0.4 mg PO DAILY #10 capsule 08/23/18 07/19/19 Gabapentin 4 cap PO TID 02/24/19 07/19/19 Hydrocodone/Ibuprofen 1 each PO Q8HR PRN 02/24/19 07/19/19 [Hydrocodone-Ibuprofen 7.5-200] buPROPion [Wellbutrin Sr] 25 mg PO DAILY 06/01/19 07/19/19 Tamsulosin HCl [Flomax] 0.4 mg PO DAILY #10 cap.er.24h 06/04/19 07/19/19 Tamsulosin HCl [Flomax] 0.4 mg PO DAILY #10 cap.er.24h 07/19/19 - Allergies Allergies/Adverse Reactions: Allergies Allergy/AdvReac Type Severity Reaction Status Date / Time latex AdvReac Mild Sensitivity/Red Verified 07/19/19 20:11 irritated skin - Social History Does the pt smoke?: No Smoking Status: Never smoker Does the pt drink ETOH?: No Does the pt have substance abuse?: No - Immunizations Immunizations are current?: Yes - POLST Patient has POLST: No PD ED PE NORMAL - Vitals Vital signs reviewed: Yes - General General: Alert and oriented X 3, No acute distress (NAD at rest, but obvious painful discomfort with movement involving trunk), Well developed/nourished - Respiratory Respiratory: No respiratory distress, Clear bilaterally - Abdomen Abdomen: Soft, Other (LUQ tenderness without rebound or guarding. There is also left lower anterior chest wall TTP) - Back Back: No spinal TTP - Derm Derm: Normal color, Warm and dry Results - Vitals Vitals: Vital Signs - 24 hr 07/19/19 07/19/19 07/19/19 20:11 22:10 22:22 Temperature 37.2 C Heart Rate 92 89 83 Respiratory 16 18 15 Rate Blood Pressure 120/82 H 173/92 H 160/84 H O2 Saturation 93 97 94 07/19/19 22:36 Temperature Heart Rate 77 Respiratory 16 Rate Blood Pressure 141/83 H O2 Saturation 98 Oxygen O2 Source Room air - Labs Labs: Laboratory Tests 07/19/19 07/19/19 20:47 20:47 WBC 9.1 RBC 4.44 Hgb 13.4 Hct 40.3 MCV 90.8 MCH 30.2 MCHC 33.3 RDW 13.0 Plt Count 235 MPV 10.5 Neut # (Auto) 5.9 Lymph # (Auto) 2.1 [place] # (Auto) 0.7 Eos # (Auto) 0.2 Baso # (Auto) 0.1 Absolute Nucleated RBC 0.00 Nucleated RBC % 0.0 Sodium 135 Potassium 3.5 Chloride 98 L Carbon Dioxide 25 Anion Gap 12.0 BUN 18 Creatinine 0.7 Estimated GFR (MDRD) 85 L Glucose 218 H Calcium 9.7 - Rads (name of study) CT A/P Radiology: Prelim report reviewed, See rad report PD MEDICAL DECISION MAKING - ED course Complexity details: reviewed results, re-evaluated patient, considered differential, d/w patient Departure - Departure Disposition: 01 Home, Self Care Clinical Impression: Contusion of chest wall Qualifiers: Encounter type: initial encounter Laterality: left Qualified Code(s): S20.212A - Contusion of left front wall of thorax, initial encounter Condition: Good Instructions: ED Contusion Chest Wall, ED Stone Kidney Undescended No Sx, ED Contusion Rib Follow-Up: Bekah Hagen ARNP, BRIQUETTING MACHINE OPERATOR-C [Primary Care Provider] - Prescriptions: Tamsulosin HCl [Flomax] 0.4 mg PO DAILY #10 cap.er.24h Discharge Date/Time: 07/19/19 22:55
[2019-07-19] MEDS ORDERED: IOVERSOL 320 100 ML VIAL IVP ONE ×2 (21:01→22:04)
[2019-07-19 21:06] LABS: BASOPHILS # (AUTO) 0.1 10^3/uL (0.0-0.1); EOSINOPHILS # (AUTO) 0.2 10^3/uL (0.0-0.7); EOSINOPHILS % (AUTO) 2.3 %; HGB - HEMOGLOBIN 13.4 g/dL (12.0-16.0); LYMPHOCYTES # (AUTO) 2.1 10^3/uL (1.5-3.5); LYMPHOCYTES % (AUTO) 23.6 %; MEAN CORPUSCULAR HEMOGLOBIN 30.2 pg (27.0-31.0); MEAN CORPUSCULAR HGB CONC 33.3 g/dL (32.0-36.0); MEAN CORPUSCULAR VOLUME 90.8 fL (81.0-99.0); MEAN PLATELET VOLUME 10.5 fL (7.9-10.8); MONOCYTES # (AUTO) 0.7 10^3/uL (0.0-1.0); MONOCYTES % (AUTO) 7.4 %; NEUTROPHILS # (AUTO) 5.9 10^3/uL (1.5-6.6); NEUTROPHILS % (AUTO) 65.3 %; PLT - PLATELET COUNT 235 10^3/uL (130-450); RED BLOOD COUNT 4.44 10^6/uL (4.20-5.40); WHITE BLOOD COUNT 9.1 x10^3/uL (4.8-10.8)
[2019-07-19 21:12] LABS: CALCIUM 9.7 mg/dL (8.5-10.3); CREATININE 0.7 mg/dL (0.4-1.0)
[2019-07-19] MEDS ORDERED: HYDROmorphone 1 MG/ML CARPUJECT IVP STA (22:07)
[2019-07-19 22:37] VITALS: BP 141/83
--- NOTE | 2019-07-19 22:43 | CT Report ---
Reason: left low chest/LUQ pain due to injury Procedure Date: 07/19/2019 Accession Number: [id number] / [id number] Procedure: CT - Abdomen/Pelvis W CPT Code: Final Report FULL RESULT: EXAM: CT ABDOMEN AND PELVIS EXAM DATE:07/19/2019 09:45 PM CLINICAL HISTORY: Left-sided chest and abdominal pain. COMPARISONS: ABDOMEN/PELVIS W/O 04/07/2014 11:[address] CH,ABD,PEL,W 04/29/2015 9:32 AM. TECHNIQUE: Routine helical CT imaging was performed through the abdomen and pelvis with OPTIRAY 320 IV contrast. Oral contrast: No. Reconstructions: Coronal and sagittal. In accordance with CT protocol optimization, one or more of the following dose reduction techniques were utilized for this exam: automated exposure control, adjustment of mA and/or KV based on patient size, or use of iterative reconstruction technique. FINDINGS: Lung Bases: 3 mm pulmonary nodule in the right lower lobe. Otherwise, the inferior lungs are clear. No pleural effusion. Liver: The liver is globally enlarged with the longitudinal dimension of the right lobe measuring 21.1 cm. Gallbladder/Bile Ducts: Unremarkable. Spleen: Unremarkable. Pancreas: Unremarkable. Adrenal Glands: Unremarkable. Kidneys: A 6 mm stone at the proximal right ureter results in moderate right proximal hydroureter and hydronephrosis. No perinephric stranding. . Bilateral renal stones; the largest measures 7 mm on the right. No hydronephrosis/hydroureter, on the left Peritoneal Cavity/Bowel: The bowel is normal in caliber and contour. No free fluid, free air or lymphadenopathy. Surgical clips in the right lower quadrant and left pelvic sidewall. Appendix not seen. Surgical clips at the right groin. Pelvic Organs: Unremarkable. The bladder and visualized pelvic organs appear normal. Vasculature: Unremarkable. Bones: Unremarkable. Other: None. IMPRESSION: Obstructive uropathy: 6 mm obstructing stone at the right proximal ureter. Nephrolithiasis. Hepatomegaly. 3 mm right lower lobe pulmonary nodule, stable for decreased in size from the CT of 04/29/2015. No further workup is necessary. RADIA
[2019-07-19] MEDS ORDERED: TAMSULOSIN 0.4 MG CAPSULE PO STA (22:51)
== END 2019-07-19 22:55 | disposition home or self-care (01) ==
LOC: ED 19:54
DX: S20.212A Contusion of left front wall of thorax, initial encounter (principal); W01.198A Fall on same level from slipping, tripping and stumbling with subsequent striking against other object, initial encounter; Y93.F9 Activity, other caregiving; Y92.238 Other place in hospital as the place of occurrence of the external cause; Y99.0 Civilian activity done for income or pay; E11.9 Type 2 diabetes mellitus without complications; M81.0 Age-related osteoporosis without current pathological fracture; Z79.4 Long term (current) use of insulin; Z79.891 Long term (current) use of opiate analgesic; Z79.82 Long term (current) use of aspirin; Z79.1 Long term (current) use of non-steroidal anti-inflammatories (NSAID)
CPT/HCPCS: 36415; 74177; 80048; 85025; 96374; 99284; A9270; J1170; Q9967

== ENCOUNTER 2019-07-25 11:11 | Outpatient (CLI) | payer OTHER, BC ==
--- NOTE | 2019-07-25 23:10 | XRAY Report ---
Reason: LEFT SIDED RIB PAIN Procedure Date: 07/25/2019 Accession Number: [id number] / [id number] Procedure: WCP - Ribs w/PA Chest LT CPT Code: Final Report FULL RESULT: EXAM: LEFT RIB RADIOGRAPHY EXAM DATE: 07/25/2019 11:25 AM. CLINICAL HISTORY: LEFT SIDED RIB PAIN. COMPARISON: THORACIC SPINE 2 VIEW 06/17/2019 10:21 AM. TECHNIQUE: 1 view of the chest and 2 views of the ribs. FINDINGS: The right subclavian approach port catheter tip overlies the cavoatrial junction. A surgical clips are reidentified in the mediastinum, both breasts, and bilateral axilla. The mediastinal and cardiac silhouettes are normal. The lungs are clear. There is no focal consolidation, pleural effusion, or pneumothorax. No rib fractures are seen. No bone lesions are seen. IMPRESSION: Clear lungs. No rib fractures. RADIA
== END 2019-07-25 23:59 | disposition home or self-care (01) ==
LOC: DI.WCP 11:11
PROVIDERS: ATTEND Nurse Practitioner
DX: R07.81 Pleurodynia (principal)

== ENCOUNTER 2019-08-25 12:26 | Outpatient (CLI) | payer BC ==
--- NOTE | 2019-08-26 12:52 | XRAY Report ---
Reason: PELVIC PAIN,BREAST CANCER Procedure Date: 08/25/2019 Accession Number: [id number] / [id number] Procedure: XR - Pelvis 3 View CPT Code: Final Report FULL RESULT: EXAM: PELVIS RADIOGRAPHY EXAM DATE: 08/25/2019 12:57 PM. CLINICAL HISTORY: Pelvic pain, breast cancer. Pain is on right buttock area. COMPARISON: ABDOMEN/PELVIS W/ 07/19/2019 9:45 PM. TECHNIQUE: 3 view. FINDINGS: Bones: No acute fracture. No bony lesion. Mild degenerative spurring. Joints: Mild joint space narrowing of both hip joints. Degenerative changes of the sacroiliac joints and lower lumbar spine. No dislocation. Soft Tissues: Surgical clips are seen along the right pelvis and right medial inguinal region, as before. IMPRESSION: 1. No acute fracture or bony lesion. 2. Mild degenerative changes. RADIA
== END 2019-08-25 12:27 | disposition home or self-care (01) ==
LOC: DI 12:26
PROVIDERS: ATTEND Nurse Practitioner
DX: M16.0 Bilateral primary osteoarthritis of hip (principal)
CPT/HCPCS: 72190

== ENCOUNTER 2019-12-03 14:34 | Outpatient (CLI) | payer BC ==
[2019-12-03 18:57] LABS: CALCIUM 9.5 mg/dL (8.5-10.3); CREATININE 0.6 mg/dL (0.4-1.0)
[2019-12-03 20:18] LABS: HB2 TOTAL 13.3 g/dL; HEMOGLOBIN A1C 0.74 g/dL; HEMOGLOBIN A1C % 7.2 % (4.6-6.2)
== END 2019-12-03 14:35 | disposition home or self-care (01) ==
LOC: LAB.WCP 14:34
PROVIDERS: ATTEND Nurse Practitioner
DX: E11.9 Type 2 diabetes mellitus without complications (principal); Z11.59 Encounter for screening for other viral diseases
CPT/HCPCS: 36415; 80048; 83036; 86769

== ENCOUNTER 2019-12-10 12:00 | Outpatient (CLI) | payer BC ==
--- NOTE | 2019-12-11 10:02 | Ultrasound Report ---
LIMITED ULTRASOUND OF LEFT BREAST: 12/10/2019 CLINICAL: Diffuse left LATERAL CHEST WALL pain. No prior exams were available for comparison. Ultrasound of the left chest wall at 3 o'clock was performed on the area of interest. Valenzuela scale lu ges of the real-time examination were reviewed. IMPRESSION: NEGATIVE There is no sonographic evidence of malignancy or findings to explain the patients left chest wall pa in. Clinical followup is recommended. This exam was interpreted at Station ID: [id number]. Electronically Signed By: Mae Zepeda M.D. lk/:12/10/2019 13:26:55 Ultrasound BI-RADS: 1 Negative BI-RADS CATEGORY: (1) - 1 Unspecified - other recall n/a LATERALITY: (B)
== END 2019-12-10 12:01 | disposition home or self-care (01) ==
LOC: DI 12:00
PROVIDERS: ATTEND Internal Medicine Hematology & Oncology
DX: N64.4 Mastodynia (principal); Z85.3 Personal history of malignant neoplasm of breast
CPT/HCPCS: 76642

== ENCOUNTER 2020-01-26 08:00 | Outpatient (CLI) | payer BC | END 2020-01-26 23:59 | disposition home or self-care (01) | LOC: LAB.R 08:00 | PROVIDERS: ATTEND Physician Assistant Medical | DX: R10.32 Left lower quadrant pain (principal) | CPT/HCPCS: 87086 ==

== ENCOUNTER 2020-01-26 17:02 | Outpatient (CLI) | payer BC ==
--- NOTE | 2020-01-26 17:39 | CT Report ---
PROCEDURE: Abdomen/Pelvis WO INDICATIONS: ABDOMINAL PAIN, LLQ TECHNIQUE: Noncontrast 5 mm thick sections acquired from the diaphragms to the symphysis. 5 mm coronal and sagi ttal reformats were then performed. For radiation dose reduction, the following was used: automated exposure control, adjustment of mA and/or kV according to patient size. COMPARISON: Correlation is made with prior CT of the abdomen and pelvis dated 07/19/2019 FINDINGS: Image quality: Excellent. ABDOMEN: Lung bases: Lung bases are clear. Heart size is normal. Incidental note is made of partial visuali zation of a right breast implant. Solid organs: Liver and spleen are normal in size. Gallbladder wall does not appear thickened. P ancreas is normal in contours. No adrenal nodules. Bilateral nonobstructing kidney stones are seen. The largest on the right measures [address] on the left measures 6 mm. Within the mid left ureter, there is a stone seen, as on series 3 image 44 that measures 3 mm. No significant associated left-sided hydronephrosis or hydroureter can be see n, however. No stones are seen along the course of the right ureter. Peritoneum and bowel: Unenhanced bowel loops demonstrate normal wall thickness and caliber. No free fluid or air. A moderate amount of stool is seen within the colon. Appendectomy clips are seen. Nodes and vessels: No retroperitoneal or mesenteric adenopathy by size criteria. Aorta and inferior vena cava are normal in caliber. Miscellaneous: No ventral hernias. PELVIS: Genitourinary: Bladder wall thickness is normal. This patient is status post hysterectomy. No adnex al masses can be seen. Miscellaneous: No inguinal hernias or adenopathy. Right groin postoperative clips are seen. Bones: No suspicious bony lesions. No vertebral body compression fractures. Age-appropriate degene rative changes are seen. IMPRESSION: There is a 3 mm stone seen within the left mid ureter, yet without significant hydronephrosis or hydr oureter. This cannot be seen on the prior CT examination. Bilateral nonobstructing kidney stones are seen. The previously seen obstructing right ureteral stone is no longer seen. There is a moderate amount of stool seen within the colon. Please correlate with clinical constipatio n. Incidental note is made of: Hysterectomy Apparent appendectomy clips Right groin clips Reviewed by: Thomas Chaney MD on 01/26/2020 4:38 PM [facility] Approved by: Thomas Chaney MD on 01/26/2020 4:38 PM [facility] Station ID: [id number]
[2020-01-26 17:48] LABS: BASOPHILS # (AUTO) 0.1 10^3/uL (0.0-0.1); BASOPHILS % (AUTO) 0.7 %; EOSINOPHILS # (AUTO) 0.2 10^3/uL (0.0-0.7); HGB - HEMOGLOBIN 13.7 g/dL (12.0-16.0); LYMPHOCYTES # (AUTO) 2.4 10^3/uL (1.5-3.5); LYMPHOCYTES % (AUTO) 28.1 %; MEAN CORPUSCULAR HEMOGLOBIN 29.5 pg (27.0-31.0); MEAN CORPUSCULAR HGB CONC 32.6 g/dL (32.0-36.0); MEAN CORPUSCULAR VOLUME 90.5 fL (81.0-99.0); MEAN PLATELET VOLUME 10.1 fL (7.9-10.8); MONOCYTES # (AUTO) 0.7 10^3/uL (0.0-1.0); MONOCYTES % (AUTO) 8.3 %; NEUTROPHILS # (AUTO) 5.1 10^3/uL (1.5-6.6); NEUTROPHILS % (AUTO) 60.5 %; PLT - PLATELET COUNT 234 10^3/uL (130-450); RED BLOOD COUNT 4.64 10^6/uL (4.20-5.40); RED CELL DISTRIBUTION WIDTH 13.3 % (12.0-15.0); WHITE BLOOD COUNT 8.4 x10^3/uL (4.8-10.8)
[2020-01-26 18:01] LABS: ALBUMIN 4.2 g/dL (3.2-5.5); ALBUMIN/GLOBULIN RATIO 1.4 (1.0-2.2); BILIRUBIN,TOTAL 0.7 mg/dL (0.2-1.0); CALCIUM 9.6 mg/dL (8.5-10.3); CREATININE 0.5 mg/dL (0.4-1.0); TOTAL PROTEIN 7.1 g/dL (6.7-8.2)
== END 2020-01-26 17:03 | disposition home or self-care (01) ==
LOC: DI 17:02
PROVIDERS: ATTEND Physician Assistant Medical
DX: N20.1 Calculus of ureter (principal); R10.32 Left lower quadrant pain
CPT/HCPCS: 36415; 74176; 80053; 83690; 85025; 87086

== ENCOUNTER 2020-05-01 16:07 | Emergency (ER) | payer BC ==
[2020-05-01] MEDS ORDERED: ONDANSETRON ODT 4 MG TABLET TL STA (16:34)
[2020-05-01] MEDS ORDERED: KETOROLAC 60 MG/2 ML VIAL IM STA (16:34)
[2020-05-01 16:40] LABS: BILIRUBIN,URINE NEGATIVE (NEGATIVE); GLUCOSE, URINE (UA) NEGATIVE (NEGATIVE); KETONES,URINE (UA) NEGATIVE (NEGATIVE); LEUKOCYTE ESTERASE, URINE MODERATE (NEGATIVE); NITRITE,URINE NEGATIVE (NEGATIVE); OCCULT BLOOD,URINE TRACE-INTA (NEGATIVE); PROTEIN,URINE TRACE mg/dL (NEGATIVE); UROBILINOGEN,URINE 0.2 (NORMAL) E.U./dL (NORMAL)
--- NOTE | 2020-05-01 16:43 | ED Physician Documentation ---
PD HPI ABD PAIN - Stated complaint Stated Complaint: BACK/FLANK PX - Chief complaint Chief Complaint: Abd Pain - History obtained from History obtained from: Patient - History of Present Illness Timing - onset: How many weeks ago (3) Timing - duration: Weeks (3) Timing - details: Gradual onset Pain level max: 7 Pain level now: 6 Quality: Aching, Pain Location: Other (B flank) Improved by: Other (nothing) Worsened by: Other (nothing) Associated symptoms: No: Fever, Hematemesis, Diarrhea, Constipation, Melena, Hematochezia, Dysuria - Additional information Additional information: 64-year-old female presents to the emergency department with a history of ureteral stones. She states that this feels similar to her prior stones. Has had to have 2 stones removed in the past. She has been taking Toradol and Zofran at home. She is now out of these medications. No fevers. No urinary symptoms. No vomiting. Has had nausea. 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 : Kidney stones HEENT: None, Dental implants Psych: None Musculoskeletal: Osteoporosis, Other - Past Surgical History Past Surgical History: Yes General: Appendectomy Ortho: Arthroscopic surgery /FLUOROSCOPE OPERATOR: Hysterectomy, Mastectomy - Present Medications Home Medications: Ambulatory Orders Medication Instructions Recorded Confirmed Vit C/Ascorbate Calcium,Sodium 1,000 mg PO DAILY 12/01/12 05/01/20 [Vitamin C 500 mg/15 ml Liquid] Lactobacillus Rhamnosus GG 1 cap PO DAILY 02/24/13 05/01/20 [Probiotic] Aspirin Chewable [[place] 81 mg PO DAILY 09/29/13 05/01/20 Aspirin] Calcium Carbonate/Vitamin D3 600 mg PO DAILY 09/29/13 05/01/20 [Calcium + Vitamin D Tablet] Glucosa Mix 2Kcl/Chondroitin Mix 1 each PO QID 09/29/13 05/01/20 [Glucosamine & Chondroitin Cap] metFORMIN [Glucophage] 500 mg PO BIDWM 09/29/13 05/01/20 Hydrochlorothiazide 25 mg PO DAILY 10/26/14 05/01/20 allopurinoL [Allopurinol] 200 mg PO DAILY 10/26/14 05/01/20 Biotin 300 mg PO DAILY 06/26/16 05/01/20 Ibuprofen 600 mg PO DAILY 06/26/16 05/01/20 Insulin NPH Human Isophane 25 unit SUBQ DAILY 10/03/17 05/01/20 [Humulin N] Tamsulosin [Flomax] 0.4 mg PO DAILY #10 capsule 08/23/18 05/01/20 Gabapentin 300 cap PO TID 02/24/19 05/01/20 buPROPion [Wellbutrin Sr] 25 mg PO DAILY 06/01/19 05/01/20 Cefdinir 300 mg PO BID #20 capsule 05/01/20 Ketorolac [Toradol] 10 mg PO Q6H PRN #30 tablet 05/01/20 Ondansetron Odt [Zofran] 4 mg TL Q6H PRN #20 tablet 05/01/20 Tamsulosin [Flomax] 0.4 mg PO DAILY #14 capsule 05/01/20 - Allergies Allergies/Adverse Reactions: Allergies Allergy/AdvReac Type Severity Reaction Status Date / Time latex AdvReac Mild Sensitivity/Red Verified 05/01/20 16:10 irritated skin - Social History Does the pt smoke?: No Smoking Status: Never smoker Does the pt drink ETOH?: No Does the pt have substance abuse?: No - Immunizations Immunizations are current?: Yes - POLST Patient has POLST: No PD ED PE NORMAL - Vitals Vital signs reviewed: Yes - General General: Alert and oriented X 3, No acute distress, Well developed/nourished - HEENT HEENT: PERRL, Moist mucous membranes - Neck Neck: Supple, no meningeal sign - Cardiac Cardiac: RRR, Strong equal pulses - Respiratory Respiratory: No respiratory distress, Clear bilaterally - Abdomen Abdomen: Soft, Non tender, Non distended - Back Back: No CVA TTP, No spinal TTP - Derm Derm: Warm and dry - Neuro Neuro: Alert and oriented X 3 - Psych Psych: Normal mood, Normal affect Results - Vitals Vitals: Vital Signs - 24 hr 05/01/20 05/01/20 16:14 17:40 Temperature 36.8 C Heart Rate 74 72 Respiratory 19 20 Rate Blood Pressure 154/84 H 146/79 H O2 Saturation 100 100 Oxygen O2 Source Room air - Labs Labs: Laboratory Tests 05/01/20 05/01/20 05/01/20 16:23 17:20 17:20 WBC 7.9 RBC 4.23 Hgb 12.6 Hct 38.9 MCV 92.0 MCH 29.8 MCHC 32.4 RDW 13.1 Plt Count 232 MPV 10.0 Neut # (Auto) 5.0 Lymph # (Auto) 2.0 Waldo # (Auto) 0.7 Eos # (Auto) 0.2 Baso # (Auto) 0.1 Absolute Nucleated RBC 0.00 Nucleated RBC % 0.0 Sodium 137 Potassium 3.3 L Chloride 97 L Carbon Dioxide 30 Anion Gap 10.0 BUN 15 Creatinine 0.6 Estimated GFR (MDRD) 101 Glucose 105 H Calcium 9.5 Total Bilirubin 0.6 AST 19 ALT 21 Alkaline Phosphatase 65 Total Protein 6.7 Albumin 3.9 Globulin 2.8 Albumin/Globulin Ratio 1.4 Lipase 24 Urine Color YELLOW Urine Clarity HAZY Urine pH 6.0 Ur Specific [place] 1.025 Urine Protein TRACE Urine Glucose (UA) NEGATIVE Urine Ketones NEGATIVE Urine Occult Blood TRACE-INTA Urine Nitrite NEGATIVE Urine Bilirubin NEGATIVE Urine Urobilinogen 0.2 (NORMAL) Ur Leukocyte Esterase MODERATE H Urine RBC 0-5 Urine WBC 11-25 H Ur Squamous Epith Cells FEW Squamous Urine Bacteria Many H Ur Microscopic Review INDICATED Urine Culture Comments INDICATED - Rads (name of study) CT abdomen and pelvis Radiology: Prelim report reviewed, EMP read contemporaneously PD MEDICAL DECISION MAKING - ED course Complexity details: reviewed results, re-evaluated patient, considered differential, d/w patient ED course: 64-year-old female with a history of ureteral stones presents to the emergency department with concern for continued pain from a stone. There is no obstructing ureteral calculus is visualized on CT scan. Does have a UTI, possible early pyelonephritis? Given Rocephin here plan to place on cefdinir for home. Does have a history of breast cancer in the past. Currently not on chemotherapy. Patient counseled regarding signs and symptoms for which I believe and urgent re-evaluation would be necessary. Patient with good understanding of and agreement to plan and is comfortable going home at this time. Patient does request a refill on her Toradol, Flomax and Zofran. This document was made in part using voice recognition software. While efforts are made to proofread this document, sound alike and grammatical errors may occur. IMPRESSION: 1. Previously seen obstructing left ureteral calculus is no longer present. No bladder stone. 2. Multiple nonobstructing kidney stones bilaterally. 3. Small right ovarian cyst is decreased in size. Departure - Departure Disposition: 01 Home, Self Care Clinical Impression: Pyelonephritis Condition: Good Instructions: ED Kidney Infec Female Follow-Up: Bekah Hagen ARNP, [employer] [Primary Care Provider] - Within 1 week Prescriptions: Cefdinir 300 mg PO BID #20 capsule Tamsulosin [Flomax] 0.4 mg PO DAILY #14 capsule Ketorolac [Toradol] 10 mg PO Q6H PRN #30 tablet PRN Reason: Abdominal Pain Ondansetron Odt [Zofran] 4 mg TL Q6H PRN #20 tablet PRN Reason: Nausea / Vomiting Comments: Take antibiotics until gone. Return if you worsen. You do not have any active kidney stones at this time. Discharge Date/Time: 05/01/20 17:45
[2020-05-01 16:44] LABS: CLARITY,URINE HAZY (CLEAR)
[2020-05-01 16:51] LABS: BACTERIA,URINE Many /HPF (None Seen); RBC,URINE 0-5 /HPF (0-5); SQUAMOUS EPITHELIAL CELL,UR FEW Squamous (<= Few)
--- NOTE | 2020-05-01 17:06 | CT Report ---
PROCEDURE: Abdomen/Pelvis WO INDICATIONS: L flank pain, h/o renal stones TECHNIQUE: Noncontrast 5 mm thick sections acquired from the diaphragms to the symphysis. 5 mm coronal and sagi ttal reformats were then performed. For radiation dose reduction, the following was used: automated exposure control, adjustment of mA and/or kV according to patient size. COMPARISON: CT abdomen and pelvis 01/26/2020.. FINDINGS: Image quality: Excellent. ABDOMEN: Lung bases: Lung bases are clear. Heart size is normal. Solid organs: Liver and spleen are normal in size. Suspect hepatic steatosis. Gallbladder is unrema rkable. Pancreas is normal in contours. No adrenal nodules. Kidneys are normal in size, without hy dronephrosis. Multiple bilateral nonobstructing kidney stones. Largest on the right measuring 1 cm an d on the left 0.7 cm. The previously seen obstructing calculus in the mid left ureter is no longer id entified. Peritoneum and bowel: Unenhanced bowel loops demonstrate normal wall thickness and caliber. Appendi x is surgically absent. No free fluid or air. Nodes and vessels: No retroperitoneal or mesenteric adenopathy by size criteria. Aorta and inferior vena cava are normal in caliber. Miscellaneous: No ventral hernias. PELVIS: Genitourinary: Bladder wall thickness is normal. No bladder calculus. Right ovarian cyst measuring 3 .1 x 1.8 cm, (3/120), slightly decreased. Miscellaneous: Clips in the right groin. No inguinal hernias or adenopathy. Bones: No suspicious bony lesions. No vertebral body compression fractures. IMPRESSION: 1. Previously seen obstructing left ureteral calculus is no longer present. No bladder stone. 2. Multiple nonobstructing kidney stones bilaterally. 3. Small right ovarian cyst is decreased in size. Reviewed by: Ba Jaime MD on 05/01/2020 4:04 PM [facility] Approved by: Ba Jaime MD on 05/01/2020 4:04 PM [facility] Station ID: [id number]
[2020-05-01] MEDS ORDERED: cefTRIAXone 1 GM VIAL IM STA (17:19)
[2020-05-01] MEDS ORDERED: LIDOCAINE 1% 2 ML VIAL MC ONE (17:19)
[2020-05-01 17:32] LABS: BASOPHILS # (AUTO) 0.1 10^3/uL (0.0-0.1); BASOPHILS % (AUTO) 0.6 %; EOSINOPHILS # (AUTO) 0.2 10^3/uL (0.0-0.7); EOSINOPHILS % (AUTO) 2.3 %; HGB - HEMOGLOBIN 12.6 g/dL (12.0-16.0); LYMPHOCYTES % (AUTO) 24.8 %; MEAN CORPUSCULAR HEMOGLOBIN 29.8 pg (27.0-31.0); MEAN CORPUSCULAR HGB CONC 32.4 g/dL (32.0-36.0); MONOCYTES # (AUTO) 0.7 10^3/uL (0.0-1.0); MONOCYTES % (AUTO) 8.7 %; NEUTROPHILS % (AUTO) 63.2 %; PLT - PLATELET COUNT 232 10^3/uL (130-450); RED BLOOD COUNT 4.23 10^6/uL (4.20-5.40); RED CELL DISTRIBUTION WIDTH 13.1 % (12.0-15.0); WHITE BLOOD COUNT 7.9 x10^3/uL (4.8-10.8)
[2020-05-01 17:40] VITALS: BP 146/79
[2020-05-01 17:46] LABS: ALBUMIN 3.9 g/dL (3.2-5.5); ALBUMIN/GLOBULIN RATIO 1.4 (1.0-2.2); BILIRUBIN,TOTAL 0.6 mg/dL (0.2-1.0); CALCIUM 9.5 mg/dL (8.5-10.3); CREATININE 0.6 mg/dL (0.4-1.0); TOTAL PROTEIN 6.7 g/dL (6.7-8.2)
--- OUTSIDE RECORDS SUMMARY | 2020-05-05 01:53 | EXTERNAL MEDICAL SUMMARY RPT | Continuity of Care Document ---
:1955 Demographics Phone Unavailable Preferred Language Bulgarian Marital Status Unknown Christian Affiliation Unknown Race Unknown Ethnic Group Unknown Author Organization [facility] Address [address] [phone] Phone Care Team Providers Name Role Phone [place] Unavailable Unavailable Problems date description facility 2020-04-01 16:20 MALIGNANT NEOPLASM OF UNSPECIFIED [facility] SITE OF LEFT FEMALE BREAST 2020-04-01 16:20 SEC AND UNSP MALIG NEOPLASM OF 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 2020-04-01 16:20 DRUG-INDUCED POLYNEUROPATHY [facility] 2020-04-01 16:20 AGE-RELATED OSTEOPOROSIS W/O [facility] CURRENT PATHOLOGICAL FRACTURE 2020-04-01 16:20 MASTODYNIA [facility] 2020-04-01 16:20 HEADACHE * DO NOT USE * [facility] 2020-04-01 16:20 HEADACHE [facility] 2020-04-01 16:20 ADVERSE EFFECT OF ANTINEOPL AND [facility] IMMUNOSUP DRUGS, SEQUELA 2020-04-01 16:20 ESTROGEN RECEPTOR POSITIVE STATUS [facility] [ER+] 2020-04-01 16:20 LONG-TERM (CURRENT) USE OF OPIATE [facility] ANALGESIC 2020-04-01 16:20 OTHER LONG-TERM (CURRENT) DRUG [facility] THERAPY 2020-04-01 16:20 ACQUIRED ABSENCE OF BILATERAL [facility] BREASTS AND NIPPLES 2020-04-01 16:20 PRESENCE OF OTHER VASCULAR [facility] IMPLANTS AND GRAFTS 2020-04-05 11:45 MALIGNANT NEOPLASM OF UNSPECIFIED [facility] SITE OF LEFT FEMALE BREAST 2020-04-05 11:45 SEC AND UNSP MALIG NEOPLASM OF [facility] AXILLA AND UPPER LIMB NODES 2020-04-05 11:45 BENIGN NEOPLASM OF CEREBRAL [facility] MENINGES 2020-04-05 11:45 SARCOIDOSIS OF LYMPH NODES [facility] 2020-04-05 11:45 TYPE 2 DIABETES MELLITUS WITH [facility] DIABETIC POLYNEUROPATHY 2020-04-05 11:45 DRUG-INDUCED POLYNEUROPATHY [facility] 2020-04-05 11:45 AGE-RELATED OSTEOPOROSIS W/O [facility] CURRENT PATHOLOGICAL FRACTURE 2020-04-05 11:45 MASTODYNIA [facility] 2020-04-05 11:45 HEADACHE [facility] 2020-04-05 11:45 ADVERSE EFFECT OF ANTINEOPL AND [facility] IMMUNOSUP DRUGS, SEQUELA 2020-04-05 11:45 ESTROGEN RECEPTOR POSITIVE STATUS [facility] [ER+] 2020-04-05 11:45 STERILE TECH (CURRENT) USE OF OPIATE [facility] ANALGESIC 2020-04-05 11:45 OTHER LONG-TERM (CURRENT) DRUG [facility] THERAPY 2020-04-05 11:45 ACQUIRED ABSENCE OF BILATERAL [facility] BREASTS AND NIPPLES 2020-04-05 11:45 PRESENCE OF OTHER VASCULAR [facility] IMPLANTS AND GRAFTS 2020-04-19 09:00 MALIGNANT NEOPLASM OF UNSPECIFIED [facility] SITE OF LEFT FEMALE BREAST 2020-04-19 09:00 SEC AND UNSP MALIG NEOPLASM OF [facility] AXILLA AND UPPER LIMB NODES 2020-04-19 09:00 BENIGN NEOPLASM OF CEREBRAL [facility] MENINGES 2020-04-19 09:00 SARCOIDOSIS OF LYMPH NODES [facility] 2020-04-19 09:00 TYPE 2 DIABETES MELLITUS WITH [facility] DIABETIC POLYNEUROPATHY 2020-04-19 09:00 DRUG-INDUCED POLYNEUROPATHY [facility] 2020-04-19 09:00 AGE-RELATED OSTEOPOROSIS W/O [facility] CURRENT PATHOLOGICAL FRACTURE 2020-04-19 09:00 MASTODYNIA [facility] 2020-04-19 09:00 ADVERSE EFFECT OF ANTINEOPL AND [facility] IMMUNOSUP DRUGS, SEQUELA 2020-04-19 09:00 ESTROGEN RECEPTOR POSITIVE STATUS [facility] [ER+] 2020-04-19 09:00 LONG-TERM (CURRENT) USE OF OPIATE [facility] ANALGESIC 2020-04-19 09:00 OTHER STERILE TECH (CURRENT) DRUG [facility] THERAPY 2020-04-19 09:00 ACQUIRED ABSENCE OF BILATERAL [facility] BREASTS AND NIPPLES 2020-04-19 09:00 PRESENCE OF OTHER VASCULAR [facility] IMPLANTS AND GRAFTS 2021-04-18 11:45 MALIGNANT NEOPLASM OF UNSPECIFIED [facility] SITE OF LEFT FEMALE BREAST 2021-04-18 11:45 SEC AND UNSP MALIG NEOPLASM OF [facility] AXILLA AND UPPER LIMB NODES 2021-04-18 11:45 BENIGN NEOPLASM OF CEREBRAL [facility] MENINGES 2021-04-18 11:45 SARCOIDOSIS OF LYMPH NODES [facility] 2021-04-18 11:45 TYPE 2 DIABETES MELLITUS WITH [facility] DIABETIC POLYNEUROPATHY 2021-04-18 11:45 DRUG-INDUCED POLYNEUROPATHY [facility] 2021-04-18 11:45 AGE-RELATED OSTEOPOROSIS W/O [facility] CURRENT PATHOLOGICAL FRACTURE 2021-04-18 11:45 MASTODYNIA [facility] 2021-04-18 11:45 ADVERSE EFFECT OF ANTINEOPL AND [facility] IMMUNOSUP DRUGS, SEQUELA 2021-04-18 11:45 ESTROGEN RECEPTOR POSITIVE STATUS [facility] [ER+] 2021-04-18 11:45 LONG-TERM (CURRENT) USE OF OPIATE [facility] ANALGESIC 2021-04-18 11:45 OTHER STERILE TECH (CURRENT) DRUG [facility] THERAPY 2021-04-18 11:45 ACQUIRED ABSENCE OF BILATERAL [facility] BREASTS AND NIPPLES 2021-04-18 11:45 PRESENCE OF OTHER VASCULAR [facility] IMPLANTS AND GRAFTS Allergies date description facility NO KNOWN ENVIRONMENTAL ALLERGIES [facility] Hydrogen Peroxide [facility] Medic [facility] BEE VENOM [facility] Medic [facility] CIPROFLOXACIN [facility] Medic [facility] NITROFURANTOIN [facility] Medic [facility] SULFA ANTIBIOTICS [facility] Medic [facility] NO KNOWN ALLERGIES [facility] NO ALLERGY INFORMATION AVAILABLE [facility] SULFA (SULFONAMIDE ANTIBIOTICS) [facility] NO KNOWN ALLERGIES [facility] Medic [facility] ACETAZOLAMIDE [facility] Medic [facility] FLU VAC 2018 [id number](PF) [facility] latex [facility] Medic [facility] Results Social History date description facility [id number]
== END 2020-05-01 17:45 | disposition home or self-care (01) ==
LOC: ED 16:07
DX: N12 Tubulo-interstitial nephritis, not specified as acute or chronic (principal); E11.9 Type 2 diabetes mellitus without complications; Z79.4 Long term (current) use of insulin; Z85.3 Personal history of malignant neoplasm of breast
CPT/HCPCS: 74176; 80053; 81001; 83690; 85025; 87086; 96372; 99284; Q0162; 81003

== ENCOUNTER 2020-05-27 08:00 | Outpatient (CLI) | payer BC ==
[2020-05-27 19:18] LABS: BILIRUBIN,URINE NEGATIVE (NEGATIVE); GLUCOSE, URINE (UA) NEGATIVE (NEGATIVE); KETONES,URINE (UA) NEGATIVE (NEGATIVE); LEUKOCYTE ESTERASE, URINE NEGATIVE (NEGATIVE); NITRITE,URINE NEGATIVE (NEGATIVE); OCCULT BLOOD,URINE NEGATIVE (NEGATIVE); PROTEIN,URINE NEGATIVE (NEGATIVE); UROBILINOGEN,URINE 0.2 (NORMAL) E.U./dL (NORMAL)
[2020-05-27 19:19] LABS: CLARITY,URINE CLEAR (CLEAR)
[2020-05-27 19:21] LABS: BACTERIA,URINE None Seen /HPF (None Seen); MUCUS,URINE Few Strands; RBC,URINE 0-5 /HPF (0-5); SQUAMOUS EPITHELIAL CELL,UR RARE Squamous (<= Few)
== END 2020-05-27 23:59 | disposition home or self-care (01) ==
LOC: LAB.WCP 08:00
PROVIDERS: ATTEND Internal Medicine
DX: R10.9 Unspecified abdominal pain (principal)
CPT/HCPCS: 81001; 87086

== ENCOUNTER 2020-07-13 12:20 | Outpatient (CLI) | payer BC | END 2020-07-13 12:21 | disposition critical access hospital (66) | LOC: EMS 12:20 | PROVIDERS: ATTEND Registered Nurse | DX: S06.9X9A Unspecified intracranial injury with loss of consciousness of unspecified duration, initial encounter (principal); W18.30XA Fall on same level, unspecified, initial encounter; Y93.01 Activity, walking, marching and hiking; Y92.008 Other place in unspecified non-institutional (private) residence as the place of occurrence of the external cause | CPT/HCPCS: A0425; A0429 ==

== ENCOUNTER 2020-07-13 12:36 | Observation (INO) | payer BC ==
--- NOTE | 2020-07-13 13:01 | ED Physician Documentation ---
History of Present Illness - Stated complaint Stated Complaint: GLF - Chief complaint Chief Complaint: Trauma Hd/Nk - Additonal information Additional information: 64-year-old female presents the emergency department after a fall with loss of consciousness. She reports walking up her driveway and having her arms full when she lost her balance falling backwards striking her head. She did lose consciousness for an unknown amount of time. She reports waking up and questioning to herself where she was. She was able to get up and walk into the house though it took a few tries due to persistent dizziness. She does have a laceration on her posterior occiput. She does arrive as a modified trauma with C-spine precautions in place. not anticoagulated. 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 At present she is reporting a headache, blurry vision, and dizziness. She reports baselien dizziness and often being unbalanced, but not this badly Review of Systems Constitutional: reports: Reviewed and negative Eyes: reports: Decreased vision (blurry vision) Ears: reports: Reviewed and negative Throat: reports: Reviewed and negative Cardiac: reports: Pedal edema (at baseline) Respiratory: reports: Reviewed and negative GI: reports: Reviewed and negative : reports: Reviewed and negative Skin: reports: Laceration (s) (posterior occiput) Musculoskeletal: reports: Neck pain Neurologic: reports: Headache, Head injury, LOC. 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 : Kidney stones HEENT: None, Dental implants Psych: None Musculoskeletal: Osteoporosis, Other - Past Surgical History Past Surgical History: Yes General: Appendectomy Ortho: Arthroscopic surgery /DANCING INSTRUCTOR: Hysterectomy, Mastectomy - Present Medications Home Medications: Ambulatory Orders Medication Instructions Recorded Confirmed Vit C/Ascorbate Calcium,Sodium 1,000 mg PO DAILY 12/01/12 07/13/20 [Vitamin C 500 mg/15 ml Liquid] Lactobacillus Rhamnosus GG 1 cap PO DAILY 02/24/13 07/13/20 [Probiotic] Aspirin Chewable [St Nawaf 81 mg PO DAILY 09/29/13 07/13/20 Aspirin] Calcium Carbonate/Vitamin D3 600 mg PO DAILY 09/29/13 07/13/20 [Calcium + Vitamin D Tablet] Glucosa Mix 2Kcl/Chondroitin Mix 1 each PO QID 09/29/13 07/13/20 [Glucosamine & Chondroitin Cap] metFORMIN [Glucophage] 500 mg PO BIDWM 09/29/13 07/13/20 Hydrochlorothiazide 25 mg PO DAILY 10/26/14 07/13/20 allopurinoL [Allopurinol] 200 mg PO DAILY 10/26/14 07/13/20 Biotin 300 mg PO DAILY 06/26/16 07/13/20 Ibuprofen 600 mg PO DAILY 06/26/16 07/13/20 Insulin NPH Human Isophane 25 unit SUBQ DAILY 10/03/17 07/13/20 [Humulin N] Tamsulosin [Flomax] 0.4 mg PO DAILY #10 capsule 08/23/18 07/13/20 Gabapentin 300 cap PO TID 02/24/19 07/13/20 buPROPion [Wellbutrin Sr] 25 mg PO DAILY 06/01/19 07/13/20 - Allergies Allergies/Adverse Reactions: Allergies Allergy/AdvReac Type Severity Reaction Status Date / Time latex AdvReac Mild Sensitivity/Red Verified 07/13/20 12:42 irritated skin - Social History Does the pt smoke?: No Smoking Status: Never smoker Does the pt drink ETOH?: No Does the pt have substance abuse?: No - Immunizations Immunizations are current?: Yes - POLST Patient has POLST: No PD ED PE EXPANDED - General General: Alert, No acute distress - HEENT HEENT: PERRL, Moist mucous membranes, Other (2 cm right posterior scalp laceration). No: Head injury - Cardiac Cardiac: Regular Rate, Regular Rhythm, Radial strong equal, Cap refill < 2 sec, Other (pedal edema bilaterally). No: Murmur Present - Respiratory Respiratory: Clear to ausultation belgica. No: Distress, Labored - Abdomen Abdomen: Normal Bowel sounds. No: Tender to palpation - Neuro Neuro: Alert and Oriented X 3, CNII-XII intact, Normal speech. No: Dyscongugate gaze, Nystagmus - GCS Eye Opening: Spontaneous Motor: Obeys Commands Verbal: Oriented Total: 15 Results - Vitals Vitals: Vital Signs - 24 hr 07/13/20 07/13/20 07/13/20 12:43 14:41 16:00 Temperature 36.5 C Heart Rate 75 74 73 Respiratory 18 13 15 Rate Blood Pressure 169/92 H 152/91 H 139/86 H O2 Saturation 100 97 99 Oxygen O2 Source Room air - EKG (time done) 1257 Rate: Rate (enter#) (73) Rhythm: NSR [place]: Normal Intervals: Normal [place] QRS: Normal, Low voltage Ischemia: Normal ST segments Compare to prior EKG: Unchanged from prior EKG Computer interpretation: Agree with computer - Labs Labs: Laboratory Tests 07/13/20 07/13/20 07/13/20 12:57 12:57 12:57 WBC 6.6 RBC 4.59 Hgb 13.5 Hct 42.3 MCV 92.2 MCH 29.4 MCHC 31.9 L RDW 13.1 Plt Count 229 MPV 10.5 Neut # (Auto) 4.2 Lymph # (Auto) 1.6 [place] # (Auto) 0.6 Eos # (Auto) 0.2 Baso # (Auto) 0.1 Absolute Nucleated RBC 0.00 Nucleated RBC % 0.0 PT 12.8 H INR 1.2 Sodium 136 Potassium 3.5 Chloride 97 L Carbon Dioxide 27 Anion Gap 12.0 BUN 20 Creatinine 0.7 Estimated GFR (MDRD) 85 L Glucose 125 H Calcium 10.2 Total Bilirubin 0.5 AST 22 ALT 22 Alkaline Phosphatase 55 Total Protein 7.2 Albumin 4.1 Globulin 3.1 Albumin/Globulin Ratio 1.3 Lipase 21 L - Rads (name of study) CT head Radiology: Final report received (No acute intracranial abnormality) CT cervical Radiology: Final report received (No CT evidence of acute traumatic cervical spine injury. Degenerative changes in the mid cervical spine) Chest xr Radiology: Final report received (No acute cardiopulmonary process) Procedures - Laceration (location) posterior scalp right Length in cm: 2 Wound type: Irregular Wound preparation: Chlorhexadine, Irrigated copiously NS Skin layer closure: Anuja (2) Other: Patient tolerated well, No complications, Neurovascular intact, Tetanus UTD PD MEDICAL DECISION MAKING - ED course Complexity details: reviewed results, re-evaluated patient, d/w patient ED course: 64-year-old female presents the emergency department as a modified trauma and in C-spine precautions on a backboard after walking up her driveway and falling striking the back of her head. Patient reports that her arms were overloaded which is why she fell. She did have loss of consciousness for an unknown time. She rpesented as a modified trauma, with back board and c-spine precautions. PT does reports a hx of ID DMII as well as breast cancer. States at baseline she does have dizzines that she attributes to her medications, but she does hav e ahx of a known meningioma. HeadInitial CT scanning of the and neck showed no acute bleeds or fractures. I was able to remove her from the backboard and c-collar as well as set her up. Screening electrolytes and CBC showed no acute worrisome abnormalities. Nursing staff did attempt to ambulate the patient but she was quite unsteady and required 2 person assist to ambulate to the bathroom. 1530: I did speak with on-call surgeon Dr. Garcia. Because patient presented as a modified trauma with loss of consciousness she would like the patient admitted to the hospital for likely repeat CT scan in a.m. Surgery will admit the patient but she is asking for hospitalist consult for medical recommendations on management of diabetes mellitus. 1545: I spoke with day hospitalist Dr. Alvarado who agreed to consult on patient for further admission and evaluation Departure - Departure Disposition: ED Place in Observation Clinical Impression: Fall from ground level, Dizziness, Loss of consciousness associated with intracranial injury Occipital scalp laceration Qualifiers: Encounter type: initial encounter Qualified Code(s): S01.01XA - Laceration without foreign body of scalp, initial encounter Diabetes Qualifiers: Diabetes mellitus type: type 2 Diabetes mellitus mcfp insulin use: with mcfp use Diabetes mellitus complication status: with other specified complication Qualified Code(s): E11.69 - Type 2 diabetes mellitus with other specified complication
[2020-07-13 13:02] LABS: BASOPHILS # (AUTO) 0.1 10^3/uL (0.0-0.1); BASOPHILS % (AUTO) 0.9 %; EOSINOPHILS # (AUTO) 0.2 10^3/uL (0.0-0.7); EOSINOPHILS % (AUTO) 3.2 %; HCT - HEMATOCRIT 42.3 % (37.0-47.0); HGB - HEMOGLOBIN 13.5 g/dL (12.0-16.0); LYMPHOCYTES # (AUTO) 1.6 10^3/uL (1.5-3.5); LYMPHOCYTES % (AUTO) 24.2 %; MEAN CORPUSCULAR HEMOGLOBIN 29.4 pg (27.0-31.0); MEAN CORPUSCULAR HGB CONC 31.9 g/dL (32.0-36.0); MEAN CORPUSCULAR VOLUME 92.2 fL (81.0-99.0); MEAN PLATELET VOLUME 10.5 fL (7.9-10.8); MONOCYTES # (AUTO) 0.6 10^3/uL (0.0-1.0); MONOCYTES % (AUTO) 8.5 %; NEUTROPHILS # (AUTO) 4.2 10^3/uL (1.5-6.6); PLT - PLATELET COUNT 229 10^3/uL (130-450); RED BLOOD COUNT 4.59 10^6/uL (4.20-5.40); RED CELL DISTRIBUTION WIDTH 13.1 % (12.0-15.0); WHITE BLOOD COUNT 6.6 x10^3/uL (4.8-10.8)
[2020-07-13 13:15] LABS: ALBUMIN 4.1 g/dL (3.2-5.5); ALBUMIN/GLOBULIN RATIO 1.3 (1.0-2.2); BILIRUBIN,TOTAL 0.5 mg/dL (0.2-1.0); CALCIUM 10.2 mg/dL (8.5-10.3); CREATININE 0.7 mg/dL (0.4-1.0); POTASSIUM 3.5 mmol/L (3.5-5.0); TOTAL PROTEIN 7.2 g/dL (6.7-8.2)
[2020-07-13 13:22] LABS: INR 1.2 (0.8-1.2); PT - PROTHROMBIN TIME 12.8 secs (9.9-12.6)
--- NOTE | 2020-07-13 13:22 | CT Report ---
PROCEDURE: HEAD WO INDICATIONS: Trauma, fall with LOC TECHNIQUE: Noncontrast 4.5 mm thick angled axial sections acquired from the foramen magnum to the vertex. For r adiation dose reduction, the following was used: automated exposure control, adjustment of mA and/or kV according to patient size. COMPARISON: 09/14/2018 MRI brain FINDINGS: Image quality: Excellent. CSF spaces: Basal cisterns are patent. No extra-axial fluid collections. Ventricles are normal in size and shape. Brain: No midline shift. No intracranial masses or hemorrhage. Valenzuela-white matter interface is norm al. Skull and face: Calvarium and visualized facial bones are intact, without suspicious lesions. Sinuses: Visualized sinuses and mastoids are predominantly clear. IMPRESSION: No acute intracranial abnormality. Reviewed by: Timoteo Villegas MD on 07/13/2020 1:20 PM PDT Approved by: Timoteo Villegas MD on 07/13/2020 1:20 PM PDT Station ID: [id number]
--- NOTE | 2020-07-13 13:24 | CT Report ---
PROCEDURE: CERVICAL SPINE WO INDICATIONS: fall with LOC TECHNIQUE: Noncontrast 3 mm thick sections acquired from the skull base to the T4 level. Sagittal and coronal r eformats were then constructed. For radiation dose reduction, the following was used: automated exp osure control, adjustment of mA and/or kV according to patient size. COMPARISON: None. FINDINGS: Image quality: Excellent. Bones: No fractures or dislocations. Visualized superior ribs are intact. Soft tissues: Prevertebral soft tissues are normal in thickness. No paravertebral hematomas. No ap ical pneumothoraces. IMPRESSION: No CT evidence of acute traumatic cervical spine injury. Degenerative changes in the mid cervical spi ne. Reviewed by: Timoteo Villegas MD on 07/13/2020 1:23 PM PDT Approved by: Timoteo Villegas MD on 07/13/2020 1:23 PM PDT Station ID: [id number]
--- NOTE | 2020-07-13 13:31 | XRAY Report ---
PROCEDURE: Chest 1 View X-Ray INDICATIONS: Chest pain TECHNIQUE: One view of the chest was acquired. COMPARISON: None. FINDINGS: Surgical changes and devices: None. Lungs and pleura: No pleural effusions or pneumothorax. Lungs are clear. Mediastinum: Mediastinal contours appear normal. Heart size is normal. Bones and chest wall: No suspicious bony lesions. Overlying soft tissues appear unremarkable. IMPRESSION: No acute cardiopulmonary process demonstrated radiographically. Reviewed by: Timoteo Villegas MD on 07/13/2020 1:30 PM PDT Approved by: Timoteo Villegas MD on 07/13/2020 1:30 PM PDT Station ID: [id number]
[2020-07-13] MEDS ORDERED: SODIUM CHLORIDE 0.9% 1,000 ML IV STA (14:52)
[2020-07-13] MEDS ORDERED: TETANUS/DIPHTHERIA/PERTUSSIS 0.5 ML SYRINGE IM ONE (15:11)
--- NOTE | 2020-07-13 16:34 | CONSULTATION NOTE ---
Referring Provider Name of Referring Provider:: Saritha Wood Consult Date: 07/13/20 Chief Complaint - Chief Complaint Chief Complaint: fall History of Present Illness - Admitted From Admitted From:: ER - History Obtained From Records Reviewed: [facility] History obtained from: pt Exam Limitations: no - History of Present Illness HPI Comment/Other: This is a 64-year-old female with A past medical history significant for breast cancer, kidney stone, osteoporosis, diabetic 2 who presents the emergency department for evaluation of her fall. she report she was walking with her hands with full of groceries, she had sort of stepped backwards, and fell to the the back and hit her head. She report she does not know how long she was unconscious after fall. after she woke up a little but with bit disoriented, nausea and dizziness. she called EMS and was subsequently transferred to the hospital in full spinal precautions. CT of head, neck and CXR were unremarkable. Patient was admitted in surgical team to monitor pt. medical team was consulted for patient medical management. 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 : reports: Kidney stones HEENT: reports: None, Dental implants Psych: reports: None Musculoskeletal: reports: Osteoporosis, Other MRSA Hx?: No - Past Surgical History General: reports: Appendectomy Ortho: reports: Arthroscopic surgery /FIREWALL ADMINISTRATOR: reports: Hysterectomy, Mastectomy - POLST Patient has POLST: No Meds/Allgy - Home Medications Home Medications: Ambulatory Orders Medication Instructions Recorded Confirmed Vit C/Ascorbate Calcium,Sodium 1,000 mg PO DAILY 12/01/12 07/13/20 [Vitamin C 500 mg/15 ml Liquid] Lactobacillus Rhamnosus GG 1 cap PO DAILY 02/24/13 07/13/20 [Probiotic] Aspirin Chewable [St Nawaf 81 mg PO DAILY 09/29/13 07/13/20 Aspirin] Calcium Carbonate/Vitamin D3 600 mg PO DAILY 09/29/13 07/13/20 [Calcium + Vitamin D Tablet] Glucosa Mix 2Kcl/Chondroitin Mix 1 each PO QID 09/29/13 07/13/20 [Glucosamine & Chondroitin Cap] metFORMIN [Glucophage] 500 mg PO BIDWM 09/29/13 07/13/20 Hydrochlorothiazide 25 mg PO DAILY 10/26/14 07/13/20 allopurinoL [Allopurinol] 200 mg PO DAILY 10/26/14 07/13/20 Biotin 300 mg PO DAILY 06/26/16 07/13/20 Ibuprofen 600 mg PO DAILY 06/26/16 07/13/20 Insulin NPH Human Isophane 25 unit SUBQ DAILY 10/03/17 07/13/20 [Humulin N] Tamsulosin [Flomax] 0.4 mg PO DAILY #10 capsule 08/23/18 07/13/20 Gabapentin 300 cap PO TID 02/24/19 07/13/20 buPROPion [Wellbutrin Sr] 25 mg PO DAILY 06/01/19 07/13/20 - Allergies Allergies/Adverse Reactions: Allergies Allergy/AdvReac Type Severity Reaction Status Date / Time latex AdvReac Mild Sensitivity/Red Verified 07/13/20 12:42 irritated skin Review of Systems - Constitutional Constitutional: denies: Fatigue, Fever, Chills, Weakness, Diaphoresis - Eyes Eyes: denies: Pain, Blurred vision, Field loss, Vision loss - Ears, Nose & Throat Ears, Nose & Throat: denies: Ear pain, Hearing aids, Tinnitus, Nosebleeds, Bleeding gums - Cardiovascular Cariovascular: denies: Irregular heart rate, Palpitations, Chest pain, Edema, Lightheadedness, Exertional dyspnea, Decr. exercise tolerance - Respiratory Respiratory: denies: Cough, Sputum production, Wheezing, Hemoptysis, Orthopnea, SOB at rest, SOB with exertion - Gastrointestinal Gastrointestinal: denies: Abdominal pain, Constipation, Rectal bleeding, Black stools, Bloody stools, Nausea, Vomiting - Genitourinary Genitourinary: denies: Dysuria, Urgency, Incontinence, Nocturia - Musculoskeletal Musculoskeletal: denies: Muscle pain, Muscle aches, Limited range of motion - Integumentary Integumentary: denies: Rash, Lesions, Lumps, Pigment changes - Neurological Neurological: denies: Focal weakness, Headache, Dizziness, Numbness, Memory problems, Abnormal gait, Seizures, Incoordination, Slurred speech - Psychiatric Psychiatric: denies: Depression, Suicidal, Delusions - Endocrine Endocrine: denies: Polyuria, Polyphagia - Hematologic/Lymphatic Hematologic/Lymphatic: denies: Anemia, Petechiae, Blood clots Exam - Vital Signs Vital Signs: Vital Signs x48h Temp Pulse Resp BP Pulse Ox 07/13/20 16:00 73 15 139/86 H 99 07/13/20 14:41 74 13 152/91 H 97 07/13/20 12:43 36.5 C 75 18 169/92 H 100 - Physical Exam General Appearance: positive: No acute distress, Alert. negative: Lethargic Eyes Bilateral: positive: Normal inspection, PERRL, No lid inflammation ENT: positive: ENT inspection nml, No signs of dehydration. negative: Purulent nasal drainage Neck: positive: Nml inspection, Trachea midline. negative: Thyromegaly Respiratory: positive: Chest non-tender, No respiratory distress. negative: Wheezes, Rales, Rhonchi Cardiovascular: positive: Regular rate & rhythm, No murmur. negative: Tachycardia, Bradycardia, Systolic murmur, Diastolic murmur Peripheral Pulses: positive: 2+ Abdomen: positive: Non-tender, Nml bowel sounds, No distention. negative: Tenderness, Guarding, Rebound Back: positive: Nml inspection Skin: positive: Color nml, Warm, Dry. negative: Cyanosis, Diaphoresis, Pallor Extremities: positive: Non-tender, Full ROM, Nml appearance. negative: Pedal edema, Calf tenderness Neurologic/Psychiatric: positive: Oriented x3, Motor nml, Sensation nml, Mood/affect nml. negative: Weakness, Sensory loss, Facial droop, Slurred/abnml speech, Depressed mood/affect Conclusion/Plan - Diagnosis Diagnosis: 1, fall with modified trauma, CT of head and neck were unremarkable, pt is admitted surgical team, will followup, continue neuro check, pain control, repeat image study. hold home baby aspirin. 2, DM2, will have slide scale, Lantus in night, ACHS check glucose, and hypoglycemia protocol, resume home Gabapentin. 3, depression, will resume home wellbutrin. 4, Hypertension, we will resume home HCTZ after pharmacy confirm. - Lab Results Fish Bones: 07/13/20 12:57 07/13/20 12:57
[2020-07-13] MEDS ORDERED: ACETAMINOPHEN 325 MG TABLET PO STA (16:35)
--- NOTE | 2020-07-13 17:16 | SURGERY HX AND PHYSICAL(T) ---
Surgical History & Physical - Chief Complaint/HPI Chief Complaint: Ground-level fall with loss of consciousness History of Present Illness: Dai is a wonderful 64-year-old lady who is well-known to me from prior visits. I met her in 2014 when she had a recurrence of left axillary breast can cer her original diagnosis of breast cancer was in 2010 and she was treated with lumpectomy axillary sentinel node biopsy and chemotherapy with CMF for 6 months. 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 Today she was walking with her hands full of groceries and sort of stepped backwards and fell and hit her head she does not know how long she was unconscious but she was completely unconscious and woke up a little bit disoriented she called EMS and was subsequently transferred to the hospital in full spinal precautions. She denies anything really hurting now with the exception of her head she had a small laceration which was closed by the emergency room staff. She did have a CT scan of the head and neck which were both reassuring. She was initially nauseated but that is improved somewhat with Zofran. She is admitted as a modified trauma with ground-level fall sustaining a traumatic brain injury. 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 Urinary: Kidney stones Musculoskeletal: Osteoporosis, Other Psychiatric: None General: Appendectomy Orthopedic: Arthroscopic surgery Urologic: Ureterolithotomy (stones) Smoking Status: Never smoker Does the pt drink ETOH?: No Frequency: Occasional Does the pt have substance abuse?: No - Home Meds and Allergies Home Medications: Vit C/Ascorbate Calcium,Sodium [Vitamin C 500 mg/15 ml Liquid] 1,000 mg PO DAILY 12/01/12 Lactobacillus Rhamnosus GG [Probiotic] 1 cap PO DAILY 02/24/13 Aspirin Chewable [St Nawaf Aspirin] 81 mg PO DAILY 09/29/13 Calcium Carbonate/Vitamin D3 [Calcium + Vitamin D Tablet] 600 mg PO DAILY 09/29/13 Glucosa Mix 2Kcl/Chondroitin Mix [Glucosamine & Chondroitin Cap] 1 each PO QID 09/29/13 metFORMIN [Glucophage] 500 mg PO BIDWM 09/29/13 Hydrochlorothiazide 25 mg PO DAILY 10/26/14 allopurinoL [Allopurinol] 200 mg PO DAILY 10/26/14 Biotin 300 mg PO DAILY 06/26/16 Ibuprofen 600 mg PO DAILY 06/26/16 Insulin NPH Human Isophane [Humulin N] 25 unit SUBQ DAILY 10/03/17 Gabapentin 300 cap PO TID 02/24/19 buPROPion [Wellbutrin Sr] 25 mg PO DAILY 06/01/19 Allergies/Adverse Reactions: Allergies Allergy/AdvReac Type Severity Reaction Status Date / Time latex AdvReac Mild Sensitivity/Red Verified 07/13/20 12:42 irritated skin - Review of Systems Constitutional: No: Fatigue, Weakness, Poor appetite, Diaphoresis HEENT: Headaches. No: Visual changes, Eye pain Skin: No: Cyanosis, Jaundice Cardiac: No: AFIB, CAD, CHF Respiratory: No: Shortness of breath, Cough Gastrointestinal: Nausea. No: Vomiting, Difficulty swallowing, Abdominal pain Gentinourinary: No: Dysuria, Frequency Neurological: Dizziness, Headache, Numbness (neuropathy secondary to chemotherapy) Musculoskeletal: No: Back pain Hematologic: No: Anemia Psychiatric: No: Depression - Vital Signs Heart Rate: 73 Blood Pressure: 139/86 Temperature: 36.5 C Respiratory Rate: 15 O2 Saturation: 99 Weight (kg): 95.254 kg Height: 1.6 m - Physical Exam General Appearance: positive: No acute distress, Alert Eyes Bilatera: positive: Normal inspection, PERRL, EOMI ENT: positive: ENT inspection nml, Pharynx nml, No signs of dehydration, Other (Laceration to the left scalp closed with associated hematoma) Neck: positive: Nml inspection, Thyroid nml, No JVD Respiratory: positive: Chest non-tender, No respiratory distress, Breath sounds nml Cardiovascular: positive: Regular rate & rhythm Peripheral Pulses: positive: 0 Abdomen: positive: Non-tender, No distention. negative: Guarding, Rebound Back: negative: CVA tenderness (R), CVA tenderness (L) Skin: positive: Color nml Extremities: positive: Non-tender - Patient Review Patient Review: Problems were reviewed with the patient during this visit. Medications were reviewed with the patient during this visit. Allergies were reviewed this patient during this visit. Pertinent Tests Reviewed: All pertitent test for this patient were reviewed. - Assessment & Plan Assessment and Plan: Ground-level fall with traumatic brain injury. The initial CT of the head and neck were reassuring but she was unconscious for an unknown period of time and has had some nausea. All of these things together indicate some level of trauma and brain swelling. I am going to admit her overnight to the intensive care unit with continuous monitoring and neuro checks every 6 hours. We will repeat the CT of her head in the morning. If this is reassuring, she can likely be discharged.
[2020-07-13] MEDS ORDERED: ACETAMINOPHEN 500 MG TABLET PO PRN (17:21)
[2020-07-13] MEDS: INSULIN ASPART 300 UNIT/3 ML PEN SUBQ SCH ×2 (18:12→21:15)
[2020-07-13] MEDS: oxyCODONE 5 MG TABLET PO PRN (18:27)
[2020-07-13] MEDS: INSULIN GLARGINE 300 UNIT/3 ML PEN SUBQ SCH (21:16)
[2020-07-13] MEDS: DULoxetine 30 MG CAPSULE PO SCH (21:17)
[2020-07-13] MEDS: GABAPENTIN 300 MG CAPSULE PO SCH (21:17)
[2020-07-14] MEDS: oxyCODONE 5 MG TABLET PO PRN ×2 (03:02→21:18)
[2020-07-14 05:05] LABS: BASOPHILS # (AUTO) 0.1 10^3/uL (0.0-0.1); BASOPHILS % (AUTO) 0.9 %; EOSINOPHILS # (AUTO) 0.3 10^3/uL (0.0-0.7); EOSINOPHILS % (AUTO) 3.9 %; HCT - HEMATOCRIT 42.3 % (37.0-47.0); HGB - HEMOGLOBIN 13.5 g/dL (12.0-16.0); LYMPHOCYTES # (AUTO) 1.6 10^3/uL (1.5-3.5); LYMPHOCYTES % (AUTO) 25.6 %; MEAN CORPUSCULAR HGB CONC 31.9 g/dL (32.0-36.0); MEAN PLATELET VOLUME 10.5 fL (7.9-10.8); MONOCYTES # (AUTO) 0.5 10^3/uL (0.0-1.0); MONOCYTES % (AUTO) 8.4 %; NEUTROPHILS # (AUTO) 3.9 10^3/uL (1.5-6.6); PLT - PLATELET COUNT 238 10^3/uL (130-450); RED BLOOD COUNT 4.65 10^6/uL (4.20-5.40); RED CELL DISTRIBUTION WIDTH 13.3 % (12.0-15.0); WHITE BLOOD COUNT 6.4 x10^3/uL (4.8-10.8)
[2020-07-14 05:13] LABS: CREATININE 0.6 mg/dL (0.4-1.0); POTASSIUM 3.1 mmol/L (3.5-5.0)
[2020-07-14] MEDS: GABAPENTIN 300 MG CAPSULE PO SCH ×3 (06:51→21:18)
[2020-07-14] MEDS ORDERED: POTASSIUM CHLORIDE 20 MEQ TABLET PO ONE (08:12)
[2020-07-14] MEDS: INSULIN ASPART 300 UNIT/3 ML PEN SUBQ SCH ×4 (08:28→21:19)
[2020-07-14] MEDS: DULoxetine 30 MG CAPSULE PO SCH ×2 (08:36→21:18)
[2020-07-14] MEDS: allopurinoL 100 MG TABLET PO SCH (08:37)
[2020-07-14] MEDS ORDERED: TAMSULOSIN 0.4 MG CAPSULE PO SCH (09:00)
[2020-07-14] MEDS ORDERED: buPROPion SR 100 MG TABLET PO SCH (09:00)
--- NOTE | 2020-07-14 10:49 | CT Report ---
PROCEDURE: HEAD WO INDICATIONS: Traumatic Brain Injury TECHNIQUE: Noncontrast 4.5 mm thick angled axial sections acquired from the foramen magnum to the vertex. For r adiation dose reduction, the following was used: automated exposure control, adjustment of mA and/or kV according to patient size. COMPARISON: Comparison similar head CT from one day earlier reviewed.. FINDINGS: Image quality: Excellent. CSF spaces: Basal cisterns are patent. No definite extra-axial fluid collections. Ventricles are n ormal in size and shape. Brain: No midline shift. No intracranial masses or definite hemorrhage. Valenzuela-white matter interfac e is normal. Note is made of a subtle asymmetric difference in thickness of the anterior tentorium o n the left when compared to the right. This was previously present one day ago, and has not changed. A prior MRI from 06/20/2014 had documented a meningioma in this area, and the asymmetric radiodensity likely reflects some form of posttreatment change in this clinical circumstance. Skull and face: Calvarium and visualized facial bones are intact, without suspicious lesions. Sinuses: Visualized sinuses and mastoids are clear. IMPRESSION: No brain hemorrhage or contusion found. Note is made of a subtle asymmetric greater thic kness of the anterior tentorial margin on the left than the right. This is unchanged from one day ago . MR scanning could be performed to establish that this represents a normal anatomic variant rather t graff an unusual manifestation of a slight degree of subdural blood products along the tentorium in ankur t area with no change manager time from the prior CT. As discussed above a prior MRI from 2014 has documented a significant meningioma in this general [place] on of concern, and the increased radiodensity noted above is considered most likely related to prior meningioma or post treatment change. MR scanning with contrast would provide the most accurate follow -up assessment if clinically desired. Reviewed by: Gigi Herrera MD on 07/14/2020 10:47 AM PDT Approved by: Gigi Herrera MD on 07/14/2020 10:47 AM PDT Station ID: [id number]
[2020-07-14 12:32] LABS: ESTIMATED AVERAGE GLUCOSE 148 mg/dL (70-100); HEMOGLOBIN A1c% 6.8 % (4.27-6.07)
--- NOTE | 2020-07-14 14:55 | PROVIDER PROGRESS NOTE ---
Assessment/Plan - Problem List (1) Fall from ground level Assessment/Plan: 1, fall with modified trauma, repeat CT of head at this morning show stable. pt was reported to have some dizziness, and pt was reported she has difficulty mobility in the morning. pt does not show focal neurological deficits now. surgeon order PT for pt. we will continue neuro check. Pt might need repeat image study if clinically still concern. 2, DM2, stable, A1C is 6.8, Continue sliding-scale, continue ACH S check glucose and hypoglycemia protocol 3, depression, will resume home wellbutrin after pharmacy confirm 4, Hypertension, stable, we will resume home HCTZ after pharmacy confirm. 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 - Current Meds Current Meds: Current Medications Generic Name Dose Route Start Last Admin Trade Name Freq PRN Reason Stop Dose Admin Acetaminophen 1,000 mg 07/13/20 17:21 07/14/20 08:35 Acetaminophen 500 Mg Tablet PO 1,000 mg Q6H PRN Administration HEADACHE Allopurinol 200 mg 07/14/20 09:00 07/14/20 08:37 Allopurinol 100 Mg Tablet PO 200 mg DAILY CARLOS Administration Duloxetine HCl 30 mg 07/13/20 21:00 07/14/20 08:36 Duloxetine 30 Mg Capsule PO 30 mg BID CARLOS Administration Gabapentin 300 mg 07/13/20 22:00 07/14/20 06:51 Gabapentin 300 Mg Capsule PO 300 mg TID CARLOS Administration Insulin Aspart 1 - 9 unit 07/13/20 17:00 07/14/20 12:11 Insulin Aspart 300 Unit/3 Ml Pen SUBQ 1 unit 0800,1200,1700,2100 CARLOS Administration Protocol Insulin Glargine 10 unit 07/13/20 21:00 07/13/20 21:16 Insulin Glargine 300 Unit/3 Ml Pen SUBQ 10 unit QPM CARLOS Administration Oxycodone HCl 5 mg 07/13/20 17:21 07/14/20 03:02 Oxycodone 5 Mg Tablet PO 5 mg Q4HR PRN Administration PAIN Tamsulosin HCl 0.4 mg 07/14/20 09:00 07/14/20 08:38 Tamsulosin 0.4 Mg Capsule PO Not Given DAILY CARLOS - Lab Result Fish Bone Diagrams: 07/14/20 03:56 07/14/20 03:56 - Additional Planning My Orders: My Active Orders 07/13/20 Dinner Carb-controlled Diet [DIET] 07/13/20 16:27 Neuro Check [RC] QSHIFT 07/13/20 16:28 Blood Glucose Checks - Eating [RC] 0800,1200,1700,2100 Initiate Hypoglycemia Protocol [RC] .protocol 07/13/20 16:29 Orthostatic [Vital Signs - Orthostatic] [RC] DAILY 07/13/20 16:30 EKG - Electrocardiogram [RC] .ONCE 07/13/20 17:00 Insulin Aspart [NovoLOG] 1 - 9 unit SUBQ 0800,1200,1700,2100 07/13/20 21:00 DULoxetine [Cymbalta] 30 mg PO BID Insulin Glargine [Lantus Solostar] 10 unit SUBQ QPM 07/13/20 22:00 Gabapentin [Neurontin] 300 mg PO TID 07/14/20 09:00 Tamsulosin [Flomax] 0.4 mg PO DAILY allopurinoL [Zyloprim] 200 mg PO DAILY 07/15/20 05:00 BMP - BASIC METABOLIC PANEL [CHEM] DAILYLAB CBC - COMP BLD CT W/AUTO DIFF [HEME] DAILYLAB 07/16/20 05:00 BMP - BASIC METABOLIC PANEL [CHEM] DAILYLAB CBC - COMP BLD CT W/AUTO DIFF [HEME] DAILYLAB 07/17/20 05:00 BMP - BASIC METABOLIC PANEL [CHEM] DAILYLAB CBC - COMP BLD CT W/AUTO DIFF [HEME] DAILYLAB Subjective - Subjective Patient Reports: Dizzines Objective Vital Signs: Vital Signs - 24 hr 07/13/20 07/13/20 07/13/20 16:00 17:21 18:31 Temperature 36.5 C Heart Rate 73 73 Heart Rate [ 82 Monitoring electrodes] Respiratory 15 15 18 Rate Blood Pressure 139/86 H 139/86 H Blood Pressure 150/80 H [Right] O2 Saturation 99 99 100 07/13/20 07/14/20 07/14/20 20:00 01:09 05:00 Temperature 36.8 C 36.7 C Heart Rate Heart Rate [ 71 86 80 Monitoring electrodes] Respiratory 14 9 L 12 Rate Blood Pressure Blood Pressure 150/80 H 141/66 H 138/88 H [Right] O2 Saturation 100 94 98 07/14/20 07/14/20 08:27 10:12 Temperature 37.4 C Heart Rate Heart Rate [ 84 84 Monitoring electrodes] Respiratory 17 18 Rate Blood Pressure Blood Pressure 127/81 H 137/74 H [Right] O2 Saturation 97 97 Oxygen O2 Source Room air I&O (Last 24 Hrs): Intake and Output Totals x24h 07/12/20 07/13/20 07/14/20 23:59 23:59 23:59 Intake Total 1150 720 Balance 1150 720 General: Alert, Oriented x3, Cooperative, No acute distress HEENT: Atraumatic Neck: Supple Lymphatic: no adenopathy Neuro: Alert, Non Focal, Oriented Times 3 Cardiovascular: Regular rate, Normal S1, Normal S2 Respiratory: Chest non-tender, No respiratory distress Abdomen: Normal bowel sounds, Soft, No tenderness Extremities: Normal pulses - Results Results: Laboratory Results WBC 6.4 x10^3/uL (4.8-10.8) 07/14/20 03:56 RBC 4.65 10^6/uL (4.20-5.40) 07/14/20 03:56 Hgb 13.5 g/dL (12.0-16.0) 07/14/20 03:56 Hct 42.3 % (37.0-47.0) 07/14/20 03:56 MCV 91.0 fL (81.0-99.0) 07/14/20 03:56 MCH 29.0 pg (27.0-31.0) 07/14/20 03:56 MCHC 31.9 g/dL (32.0-36.0) L 07/14/20 03:56 RDW 13.3 % (12.0-15.0) 07/14/20 03:56 Plt Count 238 10^3/uL (130-450) 07/14/20 03:56 MPV 10.5 fL (7.9-10.8) 07/14/20 03:56 Neut # (Auto) 3.9 10^3/uL (1.5-6.6) 07/14/20 03:56 Lymph # (Auto) 1.6 10^3/uL (1.5-3.5) 07/14/20 03:56 [place] # (Auto) 0.5 10^3/uL (0.0-1.0) 07/14/20 03:56 Eos # (Auto) 0.3 10^3/uL (0.0-0.7) 07/14/20 03:56 Baso # (Auto) 0.1 10^3/uL (0.0-0.1) 07/14/20 03:56 Absolute Nucleated RBC 0.00 x10^3/uL 07/14/20 03:56 Nucleated RBC % 0.0 /100WBC 07/14/20 03:56 PT 12.8 secs (9.9-12.6) H 07/13/20 12:57 INR 1.2 (0.8-1.2) 07/13/20 12:57 Sodium 136 mmol/L (135-145) 07/14/20 03:56 Potassium 3.1 mmol/L (3.5-5.0) L 07/14/20 03:56 Chloride 97 mmol/L (101-111) L 07/14/20 03:56 Carbon Dioxide 29 mmol/L (21-32) 07/14/20 03:56 Anion Gap 10.0 (6-13) 07/14/20 03:56 BUN 14 mg/dL (6-20) 07/14/20 03:56 Creatinine 0.6 mg/dL (0.4-1.0) 07/14/20 03:56 Estimated GFR (MDRD) 101 (>89) 07/14/20 03:56 Glucose 130 mg/dL (70-100) H 07/14/20 03:56 Estimat Average Glucose 148 mg/dL (70-100) H 07/14/20 03:56 Hemoglobin A1c % 6.8 % (4.27-6.07) H 07/14/20 03:56 Calcium 9.0 mg/dL (8.5-10.3) 07/14/20 03:56 Total Bilirubin 0.5 mg/dL (0.2-1.0) 07/13/20 12:57 AST 22 IU/L (10-42) 07/13/20 12:57 ALT 22 IU/L (10-60) 07/13/20 12:57 Alkaline Phosphatase 55 IU/L (42-121) 07/13/20 12:57 Total Protein 7.2 g/dL (6.7-8.2) 07/13/20 12:57 Albumin 4.1 g/dL (3.2-5.5) 07/13/20 12:57 Globulin 3.1 g/dL (2.1-4.2) 07/13/20 12:57 Albumin/Globulin Ratio 1.3 (1.0-2.2) 07/13/20 12:57 Lipase 21 U/L (22-51) L 07/13/20 12:57 Nasal Screen MRSA (PCR) NEGATIVE (NEGATIVE) 07/14/20 05:45 - Procedures Procedures: Procedures DILATION OF RIGHT URETER WITH INTRALUMINAL DEVICE, ENDO (09/17/15) FRAGMENTATION IN RIGHT URETER, EXTERNAL APPROACH (09/17/15) REMOVAL OF INTRALUMINAL DEVICE FROM URETER, VIA OPENING (09/17/15) [ESWL] OF THE KIDNEY, URETER AND/OR BLADDER (06/22/14) ABX Reporting Has patient been on IV antibiotics over the past 48 hours?: No Current Medications - Current Medications Current Medications: Active Medications Acetaminophen (Acetaminophen 500 Mg Tablet) 1,000 mg PO Q6H PRN PRN Reason: HEADACHE Last Admin: 07/14/20 08:35 Dose: 1,000 mg Documented by: Allopurinol (Allopurinol 100 Mg Tablet) 200 mg PO DAILY [facility] Last Admin: 07/14/20 08:37 Dose: 200 mg Documented by: Duloxetine HCl (Duloxetine 30 Mg Capsule) 30 mg PO BID [facility] Last Admin: 07/14/20 08:36 Dose: 30 mg Documented by: Gabapentin (Gabapentin 300 Mg Capsule) 300 mg PO TID [facility] Last Admin: 07/14/20 06:51 Dose: 300 mg Documented by: Insulin Aspart (Insulin Aspart 300 Unit/3 Ml Pen) 1 - 9 unit SUBQ 0800,1200,1700,2100 [facility]; Protocol Last Admin: 07/14/20 12:11 Dose: 1 unit Documented by: Insulin Glargine (Insulin Glargine 300 Unit/3 Ml Pen) 10 unit SUBQ QPM [facility] Last Admin: 07/13/20 21:16 Dose: 10 unit Documented by: Oxycodone HCl (Oxycodone 5 Mg Tablet) 5 mg PO Q4HR PRN PRN Reason: PAIN Last Admin: 07/14/20 03:02 Dose: 5 mg Documented by: Sodium Chloride (Sodium Chloride Flush 0.9% 10 Ml Syringe) 10 ml IVP 010 0,0900,1700 [facility] Tamsulosin HCl (Tamsulosin 0.4 Mg Capsule) 0.4 mg PO DAILY [facility] Last Admin: 07/14/20 08:38 Dose: Not Given Documented by: Lactobacillus Rhamnosus GG [Probiotic] 1 cap PO DAILY 02/24/13 Aspirin Chewable [[place] Nawaf Aspirin] 81 mg PO DAILY 09/29/13 Glucosa Mix 2Kcl/Chondroitin Mix [Glucosamine & Chondroitin Cap] 1 each PO QID 09/29/13 metFORMIN [Glucophage] 500 mg PO BIDWM 09/29/13 Hydrochlorothiazide 25 mg PO DAILY 10/26/14 allopurinoL [Allopurinol] 200 mg PO DAILY 10/26/14 Biotin 300 mg PO DAILY 06/26/16 Ibuprofen 600 mg PO DAILY 06/26/16 Gabapentin 300 cap PO TID 02/24/19 Calcium Carbonate [Tums (Calcium Carbonate 500mg)] 500 mg PO DAILY 07/14/20 Cholecalciferol (Vitamin D3) [Vitamin D3] 1,000 unit PO DAILY 07/14/20 DULoxetine [Cymbalta] 30 mg PO BID 07/14/20 Insulin 70/30 Human [NovoLIN] 25 units SUBQ DAILY 07/14/20 Magnesium 250 mg PO DAILY 07/14/20 Tamsulosin [Flomax] 0.4 mg PO DAILY PRN 07/14/20 Vitamin B Complex 1 tab PO DAILY 07/14/20
--- NOTE | 2020-07-14 15:02 | PHARMACY PROGRESS NOTE ---
- Best Possible Medication History Admit Date and Time: 07/13/20 1716 Processed by: Pharmacy Medication History completed: Yes Patient Interview: Completed Secondary Source(s): Insurance records As the person ultimately responsible for medication therapy, providers are able to order a medication from an existing home medication list in [facility] via the "Reconcile Routine" prior to Confirmation of that medication by client support coordinator. Such practice is discouraged except when the physician, in their clinical judgment, deems that a medical need exists for a medication without regard to previous use.
--- NOTE | 2020-07-14 15:26 | PROVIDER PROGRESS NOTE ---
Subjective - Prog Note Date Prog Note Date: 07/14/20 Prog Note Time: 11:45 - Subjective Pt reports feeling: Improved Subjective: Dai reports she doesn't feel well but thinks she feels better than yesterday. Dizzy when she sits up or turns her had. Required 2 person full assist to get into a wheel chair for repeat CT today. Lives alone and prefers it that way. Frustrated about being hospitalized. Refused to allow nursing to wash her head wound today. Current Medications - Current Medications Current Medications: Active Medications Acetaminophen (Acetaminophen 500 Mg Tablet) 1,000 mg PO Q6H PRN PRN Reason: HEADACHE Last Admin: 07/14/20 08:35 Dose: 1,000 mg Documented by: Allopurinol (Allopurinol 100 Mg Tablet) 200 mg PO DAILY [facility] Last Admin: 07/14/20 08:37 Dose: 200 mg Documented by: Duloxetine HCl (Duloxetine 30 Mg Capsule) 30 mg PO BID [facility] Last Admin: 07/14/20 08:36 Dose: 30 mg Documented by: Gabapentin (Gabapentin 300 Mg Capsule) 300 mg PO TID [facility] Last Admin: 07/14/20 15:08 Dose: 300 mg Documented by: Insulin Aspart (Insulin Aspart 300 Unit/3 Ml Pen) 1 - 9 unit SUBQ 0800,1200,1700,2100 [facility]; Protocol Last Admin: 07/14/20 12:11 Dose: 1 unit Documented by: Insulin Glargine (Insulin Glargine 300 Unit/3 Ml Pen) 10 unit SUBQ QPM [facility] Last Admin: 07/13/20 21:16 Dose: 10 unit Documented by: Oxycodone HCl (Oxycodone 5 Mg Tablet) 5 mg PO Q4HR PRN PRN Reason: PAIN Last Admin: 07/14/20 03:02 Dose: 5 mg Documented by: Sodium Chloride (Sodium Chloride Flush 0.9% 10 Ml Syringe) 10 ml IVP 0100,0900,1700 [facility] Tamsulosin HCl (Tamsulosin 0.4 Mg Capsule) 0.4 mg PO DAILY [facility] Last Admin: 07/14/20 08:38 Dose: Not Given Documented by: Lactobacillus Rhamnosus GG [Probiotic] 1 cap PO DAILY 02/24/13 Aspirin Chewable [St Nawaf Aspirin] 81 mg PO DAILY 09/29/13 Glucosa Mix 2Kcl/Chondroitin Mix [Glucosamine & Chondroitin Cap] 1 each PO DAILY 09/29/13 metFORMIN [Glucophage] 1,000 mg PO BIDWM 09/29/13 Hydrochlorothiazide 25 mg PO DAILY 10/26/14 allopurinoL [Allopurinol] 200 mg PO DAILY 10/26/14 Biotin 300 mcg PO DAILY 06/26/16 Ibuprofen 600 mg PO DAILY 06/26/16 Gabapentin 300 mg PO BID PRN 02/24/19 Calcium Carbonate [Tums (Calcium Carbonate 500mg)] 500 mg PO DAILY 07/14/20 Cholecalciferol (Vitamin D3) [Vitamin D3] 1,000 unit PO DAILY 07/14/20 DULoxetine [Cymbalta] 30 mg PO BID 07/14/20 Insulin 70/30 Human [NovoLIN] 25 units SUBQ DAILY 07/14/20 Magnesium 250 mg PO DAILY 07/14/20 Tamsulosin [Flomax] 0.4 mg PO DAILY PRN 07/14/20 Vitamin B Complex 1 tab PO DAILY 07/14/20 Objective - Vital Signs/Intake & Output Reviewed Vital Signs: Yes Vital Signs: Vital Signs x48h Temp Pulse Resp BP Pulse Ox 07/14/20 10:12 37.4 C 84 18 137/74 H 97 07/14/20 08:27 84 17 127/81 H 97 Intake & Output: Intake & Output 07/11/20 07/12/20 07/13/20 07/14/20 23:59 23:59 23:59 23:59 Intake Total 1150 720 Balance 1150 720 - Objective General Appearance: positive: No acute distress, Lethargic Eyes Bilateral: positive: Normal inspection, Conjunctivae nml ENT: positive: ENT inspection nml Neck: positive: Nml inspection Respiratory: positive: Chest non-tender, No respiratory distress, Breath sounds nml Cardiovascular: positive: Regular rate & rhythm Abdomen: positive: Non-tender, Nml bowel sounds Neurologic/Psychiatric: positive: Oriented x3, CN's nml (2-12), Depressed mood/affect - Lab Results Fish Bones: 07/14/20 03:56 07/14/20 03:56 Other Labs: Lab Results x24hrs 07/14/20 07/14/20 07/14/20 Range/Units 05:45 03:56 03:56 WBC 6.4 (4.8-10.8) x10^3/uL RBC 4.65 (4.20-5.40) 10^6/uL Hgb 13.5 (12.0-16.0) g/dL Hct 42.3 (37.0-47.0) % MCV 91.0 (81.0-99.0) fL MCH 29.0 (27.0-31.0) pg MCHC 31.9 L (32.0-36.0) g/dL RDW 13.3 (12.0-15.0) % Plt Count 238 (130-450) 10^3/uL MPV 10.5 (7.9-10.8) fL Neut # (Auto) 3.9 (1.5-6.6) 10^3/uL Lymph # (Auto) 1.6 (1.5-3.5) 10^3/uL [place] # (Auto) 0.5 (0.0-1.0) 10^3/uL Eos # (Auto) 0.3 (0.0-0.7) 10^3/uL Baso # (Auto) 0.1 (0.0-0.1) 10^3/uL Absolute Nucleated RBC 0.00 x10^3/uL Nucleated RBC % 0.0 /100WBC Sodium 136 (135-145) mmol/L Potassium 3.1 L (3.5-5.0) mmol/L Chloride 97 L (101-111) mmol/L Carbon Dioxide 29 (21-32) mmol/L Anion Gap 10.0 (6-13) BUN 14 (6-20) mg/dL Creatinine 0.6 (0.4-1.0) mg/dL Estimated GFR (MDRD) 101 (>89) Glucose 130 H (70-100) mg/dL Estimat Average Glucose (70-100) mg/dL Hemoglobin A1c % (4.27-6.07) % Calcium 9.0 (8.5-10.3) mg/dL Nasal Screen MRSA (PCR) NEGATIVE (NEGATIVE) 07/14/20 Range/Units 03:56 WBC (4.8-10.8) x10^3/uL RBC (4.20-5.40) 10^6/uL Hgb (12.0-16.0) g/dL Hct (37.0-47.0) % MCV (81.0-99.0) fL MCH (27.0-31.0) pg MCHC (32.0-36.0) g/dL RDW (12.0-15.0) % Plt Count (130-450) 10^3/uL MPV (7.9-10.8) fL Neut # (Auto) (1.5-6.6) 10^3/uL Lymph # (Auto) (1.5-3.5) 10^3/uL [place] # (Auto) (0.0-1.0) 10^3/uL Eos # (Auto) (0.0-0.7) 10^3/uL Baso # (Auto) (0.0-0.1) 10^3/uL Absolute Nucleated RBC x10^3/uL Nucleated RBC % /100WBC Sodium (135-145) mmol/L Potassium (3.5-5.0) mmol/L Chloride (101-111) mmol/L Carbon Dioxide (21-32) mmol/L Anion Gap (6-13) BUN (6-20) mg/dL Creatinine (0.4-1.0) mg/dL Estimated GFR (MDRD) (>89) Glucose (70-100) mg/dL Estimat Average Glucose 148 H (70-100) mg/dL Hemoglobin A1c % 6.8 H (4.27-6.07) % Calcium (8.5-10.3) mg/dL Nasal Screen MRSA (PCR) (NEGATIVE) Assessment/Plan - Problem List (1) Loss of consciousness associated with intracranial injury Impression: Post concussive syndrome. 1. Patient lives alone and is a significant fall risk. We discussed the possibility of having a walker at home for a short time to make ambulation safer and she is vehementally opposed to the idea 2. Difficulty with mobility due to the above - PT consult requested to evaluate stability and consider safe discharge 3. Repeat CT of the head was reassuring
[2020-07-14] MEDS: SODIUM CHLORIDE FLUSH 0.9% 10 ML SYRINGE IVP SCH (17:31)
[2020-07-14] MEDS: INSULIN GLARGINE 300 UNIT/3 ML PEN SUBQ SCH (21:19)
[2020-07-15 04:46] LABS: BASOPHILS # (AUTO) 0.1 10^3/uL (0.0-0.1); BASOPHILS % (AUTO) 0.8 %; EOSINOPHILS # (AUTO) 0.2 10^3/uL (0.0-0.7); EOSINOPHILS % (AUTO) 3.2 %; HCT - HEMATOCRIT 41.1 % (37.0-47.0); HGB - HEMOGLOBIN 12.9 g/dL (12.0-16.0); LYMPHOCYTES # (AUTO) 1.9 10^3/uL (1.5-3.5); MEAN CORPUSCULAR HEMOGLOBIN 28.5 pg (27.0-31.0); MEAN CORPUSCULAR HGB CONC 31.4 g/dL (32.0-36.0); MEAN CORPUSCULAR VOLUME 90.9 fL (81.0-99.0); MEAN PLATELET VOLUME 10.4 fL (7.9-10.8); MONOCYTES # (AUTO) 0.7 10^3/uL (0.0-1.0); MONOCYTES % (AUTO) 10.7 %; NEUTROPHILS # (AUTO) 3.5 10^3/uL (1.5-6.6); NEUTROPHILS % (AUTO) 55.1 %; PLT - PLATELET COUNT 218 10^3/uL (130-450); RED BLOOD COUNT 4.52 10^6/uL (4.20-5.40); RED CELL DISTRIBUTION WIDTH 13.2 % (12.0-15.0); WHITE BLOOD COUNT 6.3 x10^3/uL (4.8-10.8)
[2020-07-15 04:56] LABS: CALCIUM 8.8 mg/dL (8.5-10.3); CREATININE 0.6 mg/dL (0.4-1.0); POTASSIUM 3.5 mmol/L (3.5-5.0)
[2020-07-15] MEDS: GABAPENTIN 300 MG CAPSULE PO SCH (06:43)
[2020-07-15] MEDS: SODIUM CHLORIDE FLUSH 0.9% 10 ML SYRINGE IVP SCH ×2 (06:44→10:43)
[2020-07-15] MEDS ORDERED: MAGNESIUM OXIDE 400 MG TABLET PO SCH (08:00)
[2020-07-15] MEDS ORDERED: hydroCHLOROthiazide 12.5 MG CAPSULE PO SCH (09:00)
[2020-07-15] MEDS: allopurinoL 100 MG TABLET PO SCH (10:36)
[2020-07-15] MEDS: DULoxetine 30 MG CAPSULE PO SCH (10:38)
[2020-07-15] MEDS: INSULIN ASPART 300 UNIT/3 ML PEN SUBQ SCH ×2 (10:43→11:49)
[2020-07-15 11:12] VITALS: BP 127/82
--- NOTE | 2020-07-15 12:36 | Discharge Plan ---
Discharge Plan Problem Reviewed?: Yes Disposition: Home, Self Care Condition: Stable Prescriptions: oxyCODONE [Roxicodone] 5 mg PO Q4HR PRN #7 tablet PRN Reason: Pain Diet: Regular Activity Restrictions: Activity as Tolerated Shower Restrictions: No Driving Restrictions: No Instruction Topics: Brain Injury Mild Traum Concussion Assessment: Improving No Smoking: If you smoke, Please STOP! Call for help. Follow-up with: Rodríguez Garcia MD [Provider Admit Priv/Credential] -
--- NOTE | 2020-07-15 12:41 | DISCHARGE SUMMARY ---
"Discharge Summary Admit Date: 07/13/20 Discharge Date: 07/15/20 Discharging Provider: Radha Primary Care Provider: Hieu Condition at Discharge: Stable Discharge Disposition: 01 Home, Self Care - DIAGNOSES Admission Diagnoses: Traumatic brain injury Discharge Diagnoses with Status of Each Condition: Improving - HPI History of Present Illness: Dai is a wonderful 64-year-old lady who is well-known to me from prior visits. I met her in 2014 when she had a recurrence of left axillary breast cancer her original diagnosis of breast cancer was in 2010 and she was treated with lumpectomy axillary sentinel node biopsy and chemotherapy with CMF for 6 months. She has since had a recurrence in 2014 and underwent treatment again with dose dense AC followed by weekly Taxol and subsequent left axillary radiation she has suffered from neuropathy since that time and is managed with gabapentin and Celexa which she says helps tremendously with her neuropathic pain but makes her sort of unsteady on her feet. Today she was walking with her hands full of groceries and sort of stepped backwards and fell and hit her head she does not know how long she was unconscious but she was completely unconscious and woke up a little bit disoriented she called EMS and was subsequently transferred to the hospital in full spinal precautions. She denies anything really hurting now with the exception of her head she had a small laceration which was closed by the emergency room staff. She did have a CT scan of the head and neck which were both reassuring. She was initially nauseated but that is improved somewhat with Zofran. She is admitted as a modified trauma with ground-level fall sustaining a traumatic brain injury. - CONSULTS | PROCEDURES Consultations: Physical therapy, hospitalist service Procedures: None - HOSPITAL COURSE Hospital Course: Sarah was admitted to the ICU for supportive care and frequent neurologic evaluations. Repeat CT scan was unchanged. She was noted to have dizziness with movement. PT was consulted and determined she was a minimal fall risk and able to ambulate safely. She has surgical clips in her scalp that will need to be removed in 2 weeks. She is eating a regular diet without difficulty and has had no further nausea. She is discharged to her home with fall precautions and will follow up with me in my office in 10 days to 2 weeks for staple removal - ALLERGIES Allergies/Adverse Reactions: Allergies Allergy/AdvReac Type Severity Reaction Status Date / Time latex AdvReac Mild Sensitivity/Red Verified 07/13/20 12:42 irritated skin - MEDICATIONS Home Medications: Ambulatory Orders Medication Instructions Recorded Confirmed Lactobacillus Rhamnosus GG 1 cap PO DAILY 02/24/13 07/13/20 [Probiotic] Aspirin Chewable [St Nawaf 81 mg PO DAILY 09/29/13 07/13/20 Aspirin] Glucosa Mix 2Kcl/Chondroitin Mix 1 each PO DAILY 09/29/13 07/14/20 [Glucosamine & Chondroitin Cap] metFORMIN [Glucophage] 1,000 mg PO BIDWM 09/29/13 07/14/20 Hydrochlorothiazide 25 mg PO DAILY 10/26/14 07/13/20 allopurinoL [Allopurinol] 200 mg PO DAILY 10/26/14 07/13/20 Biotin 300 mcg PO DAILY 06/26/16 07/14/20 Ibuprofen 600 mg PO DAILY 06/26/16 07/13/20 Gabapentin 300 mg PO BID PRN 02/24/19 07/14/20 Calcium Carbonate [Tums (Calcium 500 mg PO DAILY 07/14/20 07/14/20 Carbonate 500mg)] Cholecalciferol (Vitamin D3) 1,000 unit PO DAILY 07/14/20 07/14/20 [Vitamin D3] DULoxetine [Cymbalta] 30 mg PO BID 07/14/20 07/14/20 Insulin 70/30 Human [NovoLIN] 25 units SUBQ DAILY 07/14/20 07/14/20 Magnesium 250 mg PO DAILY 07/14/20 07/14/20 Tamsulosin [Flomax] 0.4 mg PO DAILY PRN 07/14/20 07/14/20 Vitamin B Complex 1 tab PO DAILY 07/14/20 07/14/20 oxyCODONE [Roxicodone] 5 mg PO Q4HR PRN #7 tablet 07/15/20 - PHYSICAL EXAM AT DISCHARGE General Appearance: positive: No acute distress, Alert ENT: positive: ENT inspection nml Neck: positive: Nml inspection Respiratory: positive: Chest non-tender, No respiratory distress, Breath sounds nml Cardiovascular: positive: Regular rate & rhythm Peripheral Pulses: positive: 0 Abdomen: positive: Non-tender Skin: positive: Color nml Extremities: positive: Non-tender - LABS Result Diagrams: 07/15/20 03:50 07/15/20 03:50 - QUALITY (Female Hip Fx Only) Was patient sent home on osteoporosis medication?: No - FOLLOW UP Follow Up: 10 days to [address] Garcia - TIME SPENT Time Spent in Discharge (Minutes): 20"
== END 2020-07-15 13:40 | disposition home or self-care (01) ==
LOC: EDUNIT# → ED 12:36 → ICU 17:16
PROVIDERS: ADMIT Surgery; ATTEND Surgery
DX: S06.9X9A Unspecified intracranial injury with loss of consciousness of unspecified duration, initial encounter (principal); S01.01XA Laceration without foreign body of scalp, initial encounter; S00.03XA Contusion of scalp, initial encounter; W01.0XXA Fall on same level from slipping, tripping and stumbling without subsequent striking against object, initial encounter; Y92.008 Other place in unspecified non-institutional (private) residence as the place of occurrence of the external cause; Z85.3 Personal history of malignant neoplasm of breast; E11.9 Type 2 diabetes mellitus without complications; G62.2 Polyneuropathy due to other toxic agents; T45.1X5D Adverse effect of antineoplastic and immunosuppressive drugs, subsequent encounter; F32.9 Major depressive disorder, single episode, unspecified; I10 Essential (primary) hypertension; E87.6 Hypokalemia; Z79.4 Long term (current) use of insulin
CPT/HCPCS: 12001; 36415; 70450; 71045; 72125; 80048; 80053; 83036; 83690; 85025; 85610; 87150; 90471; 90715; 93005; 97116; 97162; 99285; A9270; G0378; J1815

== ENCOUNTER 2020-08-31 09:09 | Outpatient (CLI) | payer BC ==
[~2020-08-31 09:09] MED LIST: GADOBUTROL 10 MMOL/10 ML VIAL ONE
[2020-08-31] MEDS ORDERED: GADOBUTROL 10 MMOL/10 ML VIAL IVP ONE (10:59)
--- NOTE | 2020-08-31 14:25 | MRI Report ---
PROCEDURE: Brain W/WO INDICATIONS: MENINGIOMA, BRAIN, VENEGAS, CONCUSSION CONTRAST: IV CONTRAST: Gadavist ml: 9.5 TECHNIQUE: Noncontrast axial T1 spin echo, axial T2 fast spin echo, sagittal and axial FLAIR, coronal T2 fast sp in echo, axial gradient echo, axial diffusion and ADC through the brain. After the administration of contrast, axial and coronal T1 spin echo with fat saturation through the brain. COMPARISON: 09/14/2018, 06/12/2014 and 10/28/2013. FINDINGS: Image quality: Excellent. CSF spaces: Basal cisterns are patent. No extra-axial fluid collections. Ventricles are normal in size and shape. Brain: Densely enhancing mass involving the left cavernous sinus, the pituitary, the left middle cranial fos sa and the prepontine cistern/left a left tentorium is not significant changed in size and contour co mpared to 09/14/2018 and 06/20/2014. Lesion continues to produce mild mass effect on the anterior left margin of the caterina and medial margin of the left temporal lobe. No vasogenic edema identified in the region of mass effect on the caterina or left temporal lobe. Enhancing left frontal convexity extra-axial mass is slightly increased in size compared to 06/20/2014 measuring 1.1 cm in transverse diameter in the current study (0.7 cm previously). Small inferior right frontal enhancing extra-axial mass is inc reased in size compared to 06/20/2014 measuring 5 mm in the current study (6 1 mm previously). No new abnormal intracranial mass or enhancement. No midline shift. No intracranial bleeds. There is mild cerebral volume loss for age. There is mode rate periventricular white matter chronic small vessel ischemic change. The brainstem appears normal . Diffusion-weighted images demonstrate no acute ischemic insults. No chronic ischemic insults. No rmal intravascular flow voids are present. Dural sinuses demonstrate normal postcontrast enhancement. Skull and face: Calvarial marrow is normal in signal. Orbits appear normal. Sinuses: Sinuses and mastoids appear clear. IMPRESSION: 1. Enhancing extra-axial masses most compatible with meningioma is redemonstrated. Large meningioma i nvolving the left cavernous sinus, pituitary fossa, left middle cranial fossa and left prepontine cis tern is not significantly changed in size or contour compared to prior examinations. Small left front al convexity meningioma and inferior right frontal meningioma are slightly increased in size compared to prior exams. 2. No new abnormal intracranial masses. 3. No new suspicious postcontrast enhancement. Reviewed by: Amy Chen MD, PhD on 08/31/2020 1:30 PM PDT Approved by: Amy Chen MD, PhD on 08/31/2020 1:30 PM PDT Station ID: [id number]
== END 2020-08-31 09:10 | disposition home or self-care (01) ==
LOC: DI 09:09
PROVIDERS: ATTEND Family Medicine
DX: R94.02 Abnormal brain scan (principal)
CPT/HCPCS: 70553; A9585

== ENCOUNTER 2020-09-28 10:07 | Outpatient (CLI) | payer BC | END 2020-09-28 10:08 | disposition critical access hospital (66) | LOC: EMS 10:07 | DX: R10.9 Unspecified abdominal pain (principal); K59.00 Constipation, unspecified; R31.0 Gross hematuria | CPT/HCPCS: A0425; A0427 ==

== ENCOUNTER 2020-09-28 10:27 | Emergency (ER) | payer BC ==
--- OUTSIDE RECORDS SUMMARY | 2020-09-28 10:49 | EXTERNAL MEDICAL SUMMARY RPT | Continuity of Care Document ---
:1955 Demographics Phone Unavailable Preferred Language Unknown Marital Status Unknown Mosque Affiliation Unknown Race Unknown Ethnic Group Unknown Author Organization [facility] Address [address] [phone] Phone Allergies Encounters Medications Problems Results
[2020-09-28] MEDS ORDERED: KETOROLAC 30 MG/ML VIAL IVP STA (10:50)
[2020-09-28] MEDS ORDERED: ONDANSETRON 4 MG/2 ML VIAL IVP STA (10:50)
[2020-09-28] MEDS ORDERED: SODIUM CHLORIDE 0.9% 1,000 ML IV STA ×2 (10:50→13:49)
[2020-09-28] MEDS ORDERED: HYDROmorphone 1 MG/ML CARPUJECT IVP STA (10:50)
--- NOTE | 2020-09-28 10:52 | ED Physician Documentation ---
PD HPI ABD PAIN - Stated complaint Stated Complaint: FLANK PX - Chief complaint Chief Complaint: Abd Pain - History obtained from History obtained from: Patient, EMS - History of Present Illness Timing - onset: Yesterday Timing - duration: Days (2) Timing - details: Gradual onset, Still present Quality: Sharp, Pain Location: LUQ Radiation: Left flank Improved by: Meds Worsened by: Moving, Position, Palpation Associated symptoms: Nausea, Constipation. No: Vomiting, Hematemesis, Diarrhea Similar symptoms before: Diagnosis (kidney stone) Recently seen: Other - Additional information Additional information: 64-year-old female survivor of breast cancer with recurrence has a history of kidney stone and yesterday she developed left flank pain and this pain has worsened despite treatment with oral Toradol. She has pain with movement and she states that she has been constipated as well. Despite taking regular doses of MiraLAX she has had only a ribbon of output of stool. Review of Systems Constitutional: denies: Fever Eyes: denies: Decreased vision Ears: denies: Ear pain Nose: denies: Congestion Throat: denies: Sore throat Cardiac: denies: Chest pain / pressure, Palpitations Respiratory: denies: Dyspnea, Cough GI: reports: Abdominal Pain, Nausea, Vomiting : denies: Dysuria, Frequency Skin: denies: Rash Musculoskeletal: reports: Back pain. 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 : Kidney stones HEENT: None, Dental implants Psych: None Musculoskeletal: Osteoarthritis, Osteoporosis, Chronic back pain, Other Derm: None - Past Surgical History Past Surgical History: Yes General: Appendectomy Ortho: Arthroscopic surgery /RECYCLING DIRECTOR: Hysterectomy, Mastectomy - Present Medications Home Medications: Ambulatory Orders Medication Instructions Recorded Confirmed Lactobacillus Rhamnosus GG 1 cap PO DAILY 02/24/13 09/06/20 [Probiotic] Aspirin Chewable [St Nawaf 81 mg PO DAILY 09/29/13 09/06/20 Aspirin] Glucosa Mix 2Kcl/Chondroitin Mix 1 each PO DAILY 09/29/13 09/06/20 [Glucosamine & Chondroitin Cap] metFORMIN [Glucophage] 1,000 mg PO BIDWM 09/29/13 09/06/20 allopurinoL [Allopurinol] 200 mg PO DAILY 10/26/14 09/06/20 hydroCHLOROthiazide 25 mg PO DAILY 10/26/14 09/06/20 [Hydrochlorothiazide] Biotin 300 mcg PO DAILY 06/26/16 09/06/20 Ibuprofen 600 mg PO DAILY 06/26/16 09/06/20 Gabapentin 300 mg PO BID PRN 02/24/19 09/06/20 Calcium Carbonate [Tums (Calcium 500 mg PO DAILY 07/14/20 09/06/20 Carbonate 500mg)] Cholecalciferol (Vitamin D3) 1,000 unit PO DAILY 07/14/20 09/06/20 [Vitamin D3] DULoxetine [Cymbalta] 30 mg PO BID 07/14/20 09/06/20 Insulin 70/30 Human [NovoLIN] 25 units SUBQ DAILY 07/14/20 09/06/20 Magnesium 250 mg PO DAILY 07/14/20 09/06/20 Tamsulosin [Flomax] 0.4 mg PO DAILY PRN 07/14/20 09/06/20 Vitamin B Complex 1 tab PO DAILY 07/14/20 09/06/20 Oxycodone HCl/Acetaminophen 1 - 2 each PO Q6H PRN #14 tablet 09/28/20 [Percocet 5-325 mg Tablet] - Allergies Allergies/Adverse Reactions: Allergies Allergy/AdvReac Type Severity Reaction Status Date / Time latex AdvReac Mild Sensitivity/Red Verified 09/28/20 10:38 irritated skin - Social History Does the pt smoke?: No Smoking Status: Never smoker Does the pt drink ETOH?: No Does the pt have substance abuse?: No - Immunizations Immunizations are current?: Yes - POLST Patient has POLST: No PD ED PE NORMAL - Vitals Vital signs reviewed: Yes (hypertention ) - General General: Alert and oriented X 3, Well developed/nourished, Other (appears to be in pain ) - HEENT HEENT: Atraumatic, PERRL - Neck Neck: Supple, no meningeal sign, No bony TTP - Cardiac Cardiac: RRR, No murmur - Respiratory Respiratory: No respiratory distress, Clear bilaterally - Abdomen Abdomen: Normal bowel sounds, Soft, Non distended, No organomegaly, Other (tenderness to the left CVA area is reproducible) - Back Back: No spinal TTP, Other (L CVA tenderness ) - Derm Derm: Normal color, Warm and dry, No rash - Extremities Extremities: No deformity, No edema - Neuro Neuro: Alert and oriented X 3, paint tester 2-12 intact, No motor deficit, No sensory deficit, Normal speech Eye Opening: Spontaneous Motor: Obeys Commands Verbal: Oriented GCS Score: 15 - Psych Psych: Normal mood, Normal affect Results - Vitals Vitals: Vital Signs - 24 hr 09/28/20 09/28/20 09/28/20 10:30 12:50 14:12 Temperature 36.3 C L Heart Rate 78 68 68 Respiratory 11 L 16 16 Rate Blood Pressure 170/93 H 130/84 H 131/76 H O2 Saturation 98 98 98 Oxygen O2 Source Room air - Labs Labs: Laboratory Tests 09/28/20 09/28/20 11:02 11:02 WBC 7.0 RBC 4.30 Hgb 12.7 Hct 38.0 MCV 88.4 MCH 29.5 MCHC 33.4 RDW 13.2 Plt Count 228 MPV 10.1 Neut # (Auto) 4.3 Lymph # (Auto) 1.8 [place] # (Auto) 0.6 Eos # (Auto) 0.2 Baso # (Auto) 0.1 Absolute Nucleated RBC 0.00 Nucleated RBC % 0.0 Sodium 137 Potassium 3.3 L Chloride 99 L Carbon Dioxide 25 Anion Gap 13.0 BUN 17 Creatinine 0.7 Estimated GFR (MDRD) 85 L Glucose 148 H Calcium 8.9 Total Bilirubin 0.8 AST 17 ALT 19 Alkaline Phosphatase 57 Total Protein 6.7 Albumin 3.8 Globulin 2.9 Albumin/Globulin Ratio 1.3 Lipase 20 L - Rads (name of study) ct ab/pel w/o Radiology: Prelim report reviewed (Impression: 5 mm impacted distal ureteral stone on the left causing mild to moderate left-sided hydronephrosis and hydroureter within the collecting system in each kidney there are several scattered nonobstructive calculi measuring up to 5 mm. Approximate radiodensity is 750-800 hospital units.), EMP read indepedently, See rad report Procedures - Bedside sono Bedside sono by EMP: With use bedside ultrasound the left kidney is imaged there is sonographic tenderness in the general area the image does demonstrate evidence of hydronephrosis. PD MEDICAL DECISION MAKING - ED course Complexity details: reviewed old records, reviewed results, re-evaluated patient, considered differential, d/w patient ED course: 64-year-old female with a history of kidney stone has an episode of pain she has hydronephrosis on bedside ultrasound examination and a 5 mm stone in the distal ureter on the left side. She is administered intravenous Dilaudid, toradal, zofran and saline with improvement in her pain. Departure - Departure Disposition: 01 Home, Self Care Clinical Impression: Ureterolithiasis Condition: Stable Instructions: ED Stone Renal W Colic Follow-Up: Hieu Arcos DO [Primary Care Provider] - Prescriptions: Oxycodone HCl/Acetaminophen [Percocet 5-325 mg Tablet] 1 - 2 each PO Q6H PRN #14 tablet PRN Reason: pain
[2020-09-28 11:06] LABS: BASOPHILS # (AUTO) 0.1 10^3/uL (0.0-0.1); BASOPHILS % (AUTO) 0.7 %; EOSINOPHILS # (AUTO) 0.2 10^3/uL (0.0-0.7); EOSINOPHILS % (AUTO) 2.3 %; HGB - HEMOGLOBIN 12.7 g/dL (12.0-16.0); LYMPHOCYTES # (AUTO) 1.8 10^3/uL (1.5-3.5); MEAN CORPUSCULAR HEMOGLOBIN 29.5 pg (27.0-31.0); MEAN CORPUSCULAR HGB CONC 33.4 g/dL (32.0-36.0); MEAN CORPUSCULAR VOLUME 88.4 fL (81.0-99.0); MEAN PLATELET VOLUME 10.1 fL (7.9-10.8); MONOCYTES # (AUTO) 0.6 10^3/uL (0.0-1.0); MONOCYTES % (AUTO) 8.6 %; NEUTROPHILS # (AUTO) 4.3 10^3/uL (1.5-6.6); NEUTROPHILS % (AUTO) 62.3 %; PLT - PLATELET COUNT 228 10^3/uL (130-450); RED CELL DISTRIBUTION WIDTH 13.2 % (12.0-15.0)
[2020-09-28 11:19] LABS: ALBUMIN 3.8 g/dL (3.2-5.5); ALBUMIN/GLOBULIN RATIO 1.3 (1.0-2.2); BILIRUBIN,TOTAL 0.8 mg/dL (0.2-1.0); CALCIUM 8.9 mg/dL (8.5-10.3); CREATININE 0.7 mg/dL (0.4-1.0); POTASSIUM 3.3 mmol/L (3.5-5.0); TOTAL PROTEIN 6.7 g/dL (6.7-8.2)
--- NOTE | 2020-09-28 12:00 | CT Report ---
PROCEDURE: Abdomen/Pelvis WO INDICATIONS: left flank pain hydro on bedside TECHNIQUE: Noncontrast 5 mm thick sections acquired from the diaphragms to the symphysis. 5 mm coronal and sagi ttal reformats were then performed. For radiation dose reduction, the following was used: automated exposure control, adjustment of mA and/or kV according to patient size. COMPARISON: 05/01/2020 CT abdomen/pelvis.. FINDINGS: Image quality: Excellent. ABDOMEN: Lung bases: Lung bases are clear. Heart size is normal. Solid organs: Liver and spleen are normal in size. Gallbladder appears normal Pancreas is normal i n contours. No adrenal nodules. Kidneys are normal in size, without hydronephrosis on the right, bu t there is a finding of bilateral nonobstructive renal collecting system calculi measuring between 3 mm and 5 mm, involving each kidney scattered within the collecting system. There is left-sided hydron ephrosis and hydroureter, related to a distal left ureteral stone.. There is a left-sided far distal ureteral stone near the bladder margin measuring up to 5 mm in diameter and having an internal radio density of approximately 775 Hounsfield units. Peritoneum and bowel: Unenhanced bowel loops demonstrate normal wall thickness and caliber. No free fluid or air. Nodes and vessels: No retroperitoneal or mesenteric adenopathy by size criteria. Aorta and inferior vena cava are normal in caliber. Miscellaneous: No ventral hernias. PELVIS: Genitourinary: Bladder wall thickness is normal. Miscellaneous: No inguinal hernias or adenopathy. Bones: No suspicious bony lesions. No vertebral body compression fractures. IMPRESSION: 5 mm impacted distal ureteral stone on the left, causing mild to moderate left-sided hydronephrosis a nd hydroureter. Within the collecting system of each kidney there are several scattered nonobstructive calculi measur ing up to 5 mm. Approximate radiodensity is 750-800 Hounsfield units. Reviewed by: Gigi Herrera MD on 09/28/2020 11:58 AM PDT Approved by: Gigi Herrera MD on 09/28/2020 11:58 AM PDT Station ID: [id number]
[2020-09-28 15:45] LABS: BILIRUBIN,URINE NEGATIVE (NEGATIVE); GLUCOSE, URINE (UA) NEGATIVE (NEGATIVE); KETONES,URINE (UA) TRACE mg/dL (NEGATIVE); LEUKOCYTE ESTERASE, URINE SMALL (NEGATIVE); NITRITE,URINE NEGATIVE (NEGATIVE); OCCULT BLOOD,URINE LARGE (NEGATIVE); PROTEIN,URINE 30 mg/dL (NEGATIVE); UROBILINOGEN,URINE 0.2 (NORMAL) E.U./dL (NORMAL)
[2020-09-28 15:46] LABS: CLARITY,URINE CLOUDY (CLEAR)
[2020-09-28 15:57] LABS: BACTERIA,URINE Rare /HPF (None Seen); RBC,URINE TNTC /HPF (0-5); SQUAMOUS EPITHELIAL CELL,UR RARE Squamous (<= Few)
[2020-09-28 15:59] VITALS: BP 142/89
== END 2020-09-28 16:04 | disposition home or self-care (01) ==
LOC: EDUNIT# → ED 10:27
DX: N13.2 Hydronephrosis with renal and ureteral calculous obstruction (principal); Z08 Encounter for follow-up examination after completed treatment for malignant neoplasm; Z85.3 Personal history of malignant neoplasm of breast; C79.81 Secondary malignant neoplasm of breast; E11.9 Type 2 diabetes mellitus without complications; Z79.4 Long term (current) use of insulin; Z79.82 Long term (current) use of aspirin
CPT/HCPCS: 36415; 74176; 80053; 81001; 83690; 85025; 87077; 87086; 96374; 99284; J1170; 81003

== ENCOUNTER 2020-09-29 23:57 | Outpatient (CLI) | payer BC | END 2020-09-29 23:58 | disposition critical access hospital (66) | LOC: EMS 23:57 | DX: R00.0 Tachycardia, unspecified (principal); R61 Generalized hyperhidrosis; R41.0 Disorientation, unspecified | CPT/HCPCS: A0425; A0429 ==

== ENCOUNTER 2020-09-30 00:12 | Emergency (ER) | payer BC ==
--- NOTE | 2020-09-30 00:34 | ED Physician Documentation ---
History of Present Illness - Stated complaint Stated Complaint: NOT FEELING GOOD - Chief complaint Chief Complaint: General - History obtained from History obtained from: Patient - History of Present Illness Timing: Prior to arrival Pain level now: 0 Improved by: improved after receiving IV dextrose - Additonal information Additional information: [place] patient Was lying in bed reading when she rapidly became diaphoretic, had generalized weakness, and experienced rapid palpitations. She stood to get out of bed and found she was having difficulty standing and ambulating due to the generalize weakness, and due to the persistence of the symptoms, she called 911. She has difficulty remembering details of subsequent events until EMS administered 1 amp D50 IV for fsbs of 32. en route to ED, recheck of blood sugar was 132 and she arrives AAOx3. patient says she has not had low blood sugar before. She is diabetic and takes Metformin and also uses insulin. She has not had any notable change in her diet nor PO intake. She was treated and released from this emergency department yesterday for renal colic, and a 5 mm ureteral stone was noted on CT with significant hydronephrosis, left- sided. She says the pain has been well controlled since being discharged. Review of Systems Constitutional: reports: Sweats. denies: Fever Cardiac: reports: Palpitations. denies: Chest pain / pressure Respiratory: reports: Reviewed and negative GI: reports: Reviewed and negative : reports: Other (unsure if dysuria due to recent renal colic (uncertain what to attribute to the renal colic regarding discomfort with urination)) Musculoskeletal: reports: Reviewed and negative Neurologic: reports: Generalized weakness. 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 : Kidney stones HEENT: None, Dental implants Psych: None Musculoskeletal: Osteoarthritis, Osteoporosis, Chronic back pain, Other Derm: None - Past Surgical History Past Surgical History: Yes General: Appendectomy Ortho: Arthroscopic surgery /COFFEE ROASTER: Hysterectomy, Mastectomy - Present Medications Home Medications: Ambulatory Orders Medication Instructions Recorded Confirmed Lactobacillus Rhamnosus GG 1 cap PO DAILY 02/24/13 09/30/20 [Probiotic] Aspirin Chewable [St Nawaf 81 mg PO DAILY 09/29/13 09/30/20 Aspirin] Glucosa Mix 2Kcl/Chondroitin Mix 1 each PO DAILY 09/29/13 09/30/20 [Glucosamine & Chondroitin Cap] metFORMIN [Glucophage] 1,000 mg PO BIDWM 09/29/13 09/30/20 allopurinoL [Allopurinol] 200 mg PO DAILY 10/26/14 09/30/20 hydroCHLOROthiazide 25 mg PO DAILY 10/26/14 09/30/20 [Hydrochlorothiazide] Biotin 300 mcg PO DAILY 06/26/16 09/30/20 Ibuprofen 600 mg PO DAILY 06/26/16 09/30/20 Gabapentin 300 mg PO BID PRN 02/24/19 09/30/20 Calcium Carbonate [Tums (Calcium 500 mg PO DAILY 07/14/20 09/30/20 Carbonate 500mg)] Cholecalciferol (Vitamin D3) 1,000 unit PO DAILY 07/14/20 09/30/20 [Vitamin D3] DULoxetine [Cymbalta] 30 mg PO BID 07/14/20 09/30/20 Insulin 70/30 Human [NovoLIN] 25 units SUBQ DAILY 07/14/20 09/30/20 Magnesium 250 mg PO DAILY 07/14/20 09/30/20 Tamsulosin [Flomax] 0.4 mg PO DAILY PRN 07/14/20 09/30/20 Vitamin B Complex 1 tab PO DAILY 07/14/20 09/30/20 Oxycodone HCl/Acetaminophen 1 - 2 each PO Q6H PRN #14 tablet 09/28/20 09/30/20 [Percocet 5-325 mg Tablet] Ciprofloxacin HCl [Cipro] 500 mg PO BID #14 tablet 09/30/20 Insulin 70/30 Human [NovoLIN] 25 units SUBQ QPM 09/30/20 09/30/20 - Allergies Allergies/Adverse Reactions: Allergies Allergy/AdvReac Type Severity Reaction Status Date / Time latex AdvReac Mild Sensitivity/Red Verified 09/30/20 00:24 irritated skin - Social History Does the pt smoke?: Yes Smoking Status: Current every day smoker Does the pt drink ETOH?: No Does the pt have substance abuse?: No - Immunizations Immunizations are current?: Yes - POLST Patient has POLST: No PD ED PE NORMAL - Vitals Vital signs reviewed: Yes - General General: Alert and oriented X 3, No acute distress, Well developed/nourished - HEENT HEENT: Moist mucous membranes - Neck Neck: Supple, no meningeal sign - Cardiac Cardiac: RRR, No murmur - Respiratory Respiratory: No respiratory distress, Clear bilaterally - Abdomen Abdomen: Normal bowel sounds, Soft, Non tender - Derm Derm: Normal color, Warm and dry - Extremities Extremities: No edema - Neuro Neuro: Alert and oriented X 3 Eye Opening: Spontaneous Motor: Obeys Commands Verbal: Oriented GCS Score: 15 Results - Vitals Vitals: Vital Signs - 24 hr 09/30/20 09/30/20 09/30/20 00:15 00:45 02:30 Temperature 36.1 C L Heart Rate 75 75 69 Respiratory 16 12 18 Rate Blood Pressure 132/89 H 115/75 135/89 H O2 Saturation 100 99 97 09/30/20 04:00 Temperature Heart Rate 74 Respiratory 19 Rate Blood Pressure 132/70 H O2 Saturation 98 Oxygen O2 Source Room air - EKG (time done) No standard instances Rate: Rate (enter#) (72) Rhythm: NSR Cascade: Normal Intervals: Normal OH QRS: Normal Ischemia: Normal ST segments - Labs Labs: Microbiology 09/30/20 02:26 Urine Culture - Preliminary Urine,Clean Catch CULTURE IN PROGRESS. RESULTS TO FOLLOW. Laboratory Tests 09/30/20 09/30/20 09/30/20 00:42 00:42 02:26 WBC 6.1 RBC 4.11 L Hgb 12.1 Hct 37.3 MCV 90.8 MCH 29.4 MCHC 32.4 RDW 13.5 Plt Count 213 MPV 10.2 Neut # (Auto) 4.2 Lymph # (Auto) 1.1 L [place] # (Auto) 0.7 Eos # (Auto) 0.1 Baso # (Auto) 0.0 Absolute Nucleated RBC 0.00 Nucleated RBC % 0.0 Sodium 138 Potassium 3.0 L Chloride 101 Carbon Dioxide 25 Anion Gap 12.0 BUN 12 Creatinine 0.6 Estimated GFR (MDRD) 101 Glucose 135 H Calcium 9.0 Total Bilirubin 0.4 AST 20 ALT 18 Alkaline Phosphatase 67 Total Protein 7.1 Albumin 4.0 Globulin 3.1 Albumin/Globulin Ratio 1.3 Lipase 45 Urine Color YELLOW Urine Clarity HAZY Urine pH 6.0 Ur Specific [place] 1.015 Urine Protein NEGATIVE Urine Glucose (UA) NEGATIVE Urine Ketones NEGATIVE Urine Occult Blood MODERATE H Urine Nitrite NEGATIVE Urine Bilirubin NEGATIVE Urine Urobilinogen 0.2 (NORMAL) Ur Leukocyte Esterase SMALL H Urine RBC 11-25 H Urine WBC 11-25 H Ur Squamous Epith Cells FEW Squamous Urine Bacteria Few Ur Microscopic Review INDICATED Urine Culture Comments INDICATED PD MEDICAL DECISION MAKING - ED course Complexity details: reviewed old records, reviewed results, re-evaluated patient, considered differential, d/w patient ED course: patient presents with hypoglycemia associated with signs and symptoms appropriate for her low blood sugar of 32. The symptoms resolved after being given an amp of D 50 by EMS prior to arrival. She was held in emergency department for serial fingersticks and her blood sugars ranged from 100s to 130s, at its highest prior to discharge. She remained asymptomatic during emergency department stay. no parent calls for her low blood sugar based on HPI and test results, although her urinalysis is of some concern. She was diagnosed with renal colic yesterday, with a 5 mm left-sided ureteral stone with significant hydronephrosis on CT. No urinalysis was performed yesterday. Tonights urinalysis demonstrates 11 to 25 red cells as well as 11 to 25 white blood cells. There are few squamous cells and also few bacteria. Hematuria would be expected in the setting of renal colic, whereas equal number if wbc/hpf raises concern for UTI. the few bacteria could be due to contamination as there are few squamous cells. she cannot say if she is having UTI symptoms such as dysuria or frequency, as she has had some of these symptoms attributed to her renal colic. We discussed option of antibiotic vs waiting until culture results available. I recommend antibiotic, as UTI in setting of ureteral obstruction has potential for significant complications (pyelonephritis, sepsis), and patient agrees with this plan. Departure - Departure Disposition: 01 Home, Self Care Clinical Impression: Hypoglycemia Condition: Good Instructions: ED Diabetes Hypoglycemia Insulin React Prescriptions: Ciprofloxacin HCl [Cipro] 500 mg PO BID #14 tablet Comments: A cause for your low blood sugar is not apparent based on your tests tonight. There is an incidental finding of low potassium and you should follow up with your primary care provider regarding this finding; retesting might be necessary. Your urinalysis result is abnormal and might be the result of a urinary tract infection, although your kidney stone could also explain these results. As we discussed, the combination of urinary tract infection and urinary tract obstruction (such as an obstructing kidney stone) can be very dangerous and thus you are being started on an antibiotic (cipro). Discharge Date/Time: 09/30/20 05:43
--- OUTSIDE RECORDS SUMMARY | 2020-09-30 00:39 | EXTERNAL MEDICAL SUMMARY RPT | Continuity of Care Document ---
:1955 Demographics Phone Unavailable Preferred Language Unknown Marital Status Unknown Christian Affiliation Unknown Race Unknown Ethnic Group Unknown Author Organization [facility] Address [address] [id number] Phone Allergies Encounters Medications Problems Results
[2020-09-30 00:49] LABS: BASOPHILS % (AUTO) 0.7 %; EOSINOPHILS # (AUTO) 0.1 10^3/uL (0.0-0.7); EOSINOPHILS % (AUTO) 1.5 %; HCT - HEMATOCRIT 37.3 % (37.0-47.0); HGB - HEMOGLOBIN 12.1 g/dL (12.0-16.0); LYMPHOCYTES # (AUTO) 1.1 10^3/uL (1.5-3.5); LYMPHOCYTES % (AUTO) 17.4 %; MEAN CORPUSCULAR HEMOGLOBIN 29.4 pg (27.0-31.0); MEAN CORPUSCULAR HGB CONC 32.4 g/dL (32.0-36.0); MEAN CORPUSCULAR VOLUME 90.8 fL (81.0-99.0); MEAN PLATELET VOLUME 10.2 fL (7.9-10.8); MONOCYTES # (AUTO) 0.7 10^3/uL (0.0-1.0); MONOCYTES % (AUTO) 10.8 %; NEUTROPHILS # (AUTO) 4.2 10^3/uL (1.5-6.6); NEUTROPHILS % (AUTO) 69.3 %; PLT - PLATELET COUNT 213 10^3/uL (130-450); RED BLOOD COUNT 4.11 10^6/uL (4.20-5.40); RED CELL DISTRIBUTION WIDTH 13.5 % (12.0-15.0); WHITE BLOOD COUNT 6.1 x10^3/uL (4.8-10.8)
[2020-09-30 01:01] LABS: ALBUMIN/GLOBULIN RATIO 1.3 (1.0-2.2); BILIRUBIN,TOTAL 0.4 mg/dL (0.2-1.0); CREATININE 0.6 mg/dL (0.4-1.0); TOTAL PROTEIN 7.1 g/dL (6.7-8.2)
[2020-09-30 02:34] LABS: BILIRUBIN,URINE NEGATIVE (NEGATIVE); GLUCOSE, URINE (UA) NEGATIVE (NEGATIVE); KETONES,URINE (UA) NEGATIVE (NEGATIVE); LEUKOCYTE ESTERASE, URINE SMALL (NEGATIVE); NITRITE,URINE NEGATIVE (NEGATIVE); OCCULT BLOOD,URINE MODERATE (NEGATIVE); PROTEIN,URINE NEGATIVE (NEGATIVE); UROBILINOGEN,URINE 0.2 (NORMAL) E.U./dL (NORMAL)
[2020-09-30 02:36] LABS: CLARITY,URINE HAZY (CLEAR)
[2020-09-30 02:41] LABS: BACTERIA,URINE Few /HPF (None Seen); SQUAMOUS EPITHELIAL CELL,UR FEW Squamous (<= Few)
[2020-09-30 04:03] VITALS: BP 132/70
[2020-09-30] MEDS ORDERED: POTASSIUM CHLORIDE 20 MEQ TABLET PO STA (04:13)
[2020-09-30] MEDS ORDERED: CIPROFLOXACIN 250 MG TABLET PO STA (04:35)
== END 2020-09-30 05:43 | disposition home or self-care (01) ==
LOC: EDUNIT# → ED 00:12
DX: E11.649 Type 2 diabetes mellitus with hypoglycemia without coma (principal); Z79.4 Long term (current) use of insulin; E87.6 Hypokalemia; R82.90 Unspecified abnormal findings in urine; N13.2 Hydronephrosis with renal and ureteral calculous obstruction; F17.200 Nicotine dependence, unspecified, uncomplicated; Z79.82 Long term (current) use of aspirin
CPT/HCPCS: 36415; 80053; 81001; 83690; 85025; 87086; 93005; 99284; A9270; 81003

== ENCOUNTER 2020-11-17 21:37 | Outpatient (CLI) | payer BC | END 2020-11-17 21:38 | disposition critical access hospital (66) | LOC: EMS 21:37 | DX: R53.1 Weakness (principal); R42 Dizziness and giddiness | CPT/HCPCS: A0425; A0427 ==

== ENCOUNTER 2020-11-17 21:55 | Emergency (ER) | payer BC ==
[2020-11-17] MEDS ORDERED: SODIUM CHLORIDE 0.9% 1,000 ML IV STA ×2 (22:11→23:02)
--- NOTE | 2020-11-17 22:17 | ED Physician Documentation ---
History of Present Illness - Stated complaint Stated Complaint: AMS - Chief complaint Chief Complaint: Neuro - History obtained from History obtained from: Patient, Caregiver (Shayy) - Additonal information Additional information: 64-year-old woman with history of brain tumor status post resection at [facility] presents with confusion this evening over the phone with her caregiver jonnathan. Shayy normally lives with her and helps her with her medications since her discharge from [facility], but left to go out of town to [place] today. She states that the patient does get confused at night but she was not making sense on the phone earlier and sounded worse than usual. EMS found her lying on the floor, AOX4 on scene and in the ED with normal fingerstick. She states that she laid down because she felt dizzy and tired and hit the back of her head on the way down. endorses chronic nonworsening VENEGAS that is a 5/10, improved after taking oxycodone at 5pm. 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 HEENT: None, Dental implants Psych: None Musculoskeletal: Osteoarthritis, Osteoporosis, Chronic back pain, Other Derm: None Other Past Medical History: brain tumor - Past Surgical History Past Surgical History: Yes General: Appendectomy Ortho: Arthroscopic surgery /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 WRITING 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: Hysterectomy, Mastectomy - Present Medications Home Medications: Ambulatory Orders Medication Instructions Recorded Confirmed Lactobacillus Rhamnosus GG 1 cap PO DAILY 02/24/13 11/17/20 [Probiotic] Aspirin Chewable [St Nawaf 81 mg PO DAILY 09/29/13 11/17/20 Aspirin] Glucosa Mix 2Kcl/Chondroitin Mix 1 each PO DAILY 09/29/13 11/17/20 [Glucosamine & Chondroitin Cap] metFORMIN [Glucophage] 1,000 mg PO BIDWM 09/29/13 11/17/20 allopurinoL [Allopurinol] 200 mg PO DAILY 10/26/14 11/17/20 hydroCHLOROthiazide 25 mg PO DAILY 10/26/14 11/17/20 [Hydrochlorothiazide] Biotin 300 mcg PO DAILY 06/26/16 11/17/20 Ibuprofen 600 mg PO DAILY 06/26/16 11/17/20 Gabapentin 300 mg PO BID PRN 02/24/19 11/17/20 Calcium Carbonate [Tums (Calcium 500 mg PO DAILY 07/14/20 11/17/20 Carbonate 500mg)] Cholecalciferol (Vitamin D3) 1,000 unit PO DAILY 07/14/20 11/17/20 [Vitamin D3] DULoxetine [Cymbalta] 30 mg PO BID 07/14/20 11/17/20 Insulin 70/30 Human [NovoLIN] 25 units SUBQ DAILY 07/14/20 11/17/20 Magnesium 250 mg PO DAILY 07/14/20 11/17/20 Tamsulosin [Flomax] 0.4 mg PO DAILY PRN 07/14/20 11/17/20 Vitamin B Complex 1 tab PO DAILY 07/14/20 11/17/20 Oxycodone HCl/Acetaminophen 1 - 2 each PO Q6H PRN #14 tablet 09/28/20 11/17/20 [Percocet 5-325 mg Tablet] Ciprofloxacin HCl [Cipro] 500 mg PO BID #14 tablet 09/30/20 11/17/20 Insulin 70/30 Human [NovoLIN] 25 units SUBQ QPM 09/30/20 11/17/20 - Allergies Allergies/Adverse Reactions: Allergies Allergy/AdvReac Type Severity Reaction Status Date / Time latex AdvReac Mild Sensitivity/Red Verified 11/17/20 21:56 irritated skin - Social History Does the pt smoke?: Yes Smoking Status: Current every day smoker Does the pt drink ETOH?: No Does the pt have substance abuse?: No - Immunizations Immunizations are current?: Yes - POLST Patient has POLST: No PD ED PE NORMAL - Vitals Vital signs reviewed: Yes - General General: Alert and oriented X 3, No acute distress, Well developed/nourished - HEENT HEENT: Atraumatic, PERRL, EOMI - Neck Neck: No bony TTP - Cardiac Cardiac: RRR - Respiratory Respiratory: No respiratory distress, Clear bilaterally - Abdomen Abdomen: Non tender, Non distended - Back Back: No spinal TTP - Derm Derm: Normal color, Warm and dry - Extremities Extremities: No deformity - Neuro Neuro: Alert and oriented X 3, finished cloth checker 2-12 intact, No motor deficit, No sensory deficit - Psych Psych: Normal mood, Normal affect Results - Vitals Vitals: Vital Signs - 24 hr 11/17/20 11/17/20 11/18/20 21:56 22:00 00:00 Temperature 36.5 C 36.5 C Heart Rate 99 99 83 Respiratory 16 16 16 Rate Blood Pressure 149/89 H 149/89 H 116/73 O2 Saturation 97 97 98 Oxygen O2 Source Room air - Labs Labs: Laboratory Tests 11/17/20 11/17/20 11/17/20 22:19 22:19 22:19 WBC 10.2 RBC 3.70 L Hgb 10.6 L Hct 32.9 L MCV 88.9 MCH 28.6 MCHC 32.2 RDW 13.5 Plt Count 237 MPV 9.3 Neut # (Auto) 7.3 H Lymph # (Auto) 1.8 [place] # (Auto) 1.0 Eos # (Auto) 0.1 Baso # (Auto) 0.0 Absolute Nucleated RBC 0.00 Nucleated RBC % 0.0 Sodium 129 L Potassium 2.6 L Chloride 86 L Carbon Dioxide 30 Anion Gap 13.0 BUN 10 Creatinine 0.6 Estimated GFR (MDRD) 101 Glucose 199 H Calcium 8.6 Total Bilirubin 1.0 AST 15 ALT 19 Alkaline Phosphatase 64 Troponin I High Sens 3.2 Total Protein 6.8 Albumin 3.4 Globulin 3.4 Albumin/Globulin Ratio 1.0 Lipase 16 L PD MEDICAL DECISION MAKING - ED course ED course: Patient with subdural hemorrhage on CT of the head. Discussed with [facility] and we will transfer for possible traumatic subdural hemorrhage. Dr. Sunshine accepted Departure - Departure Disposition: 02 Transfer Acute Care Hosp Clinical Impression: SDH (subdural hematoma), Altered mental status Condition: Stable
[2020-11-17 22:25] LABS: BASOPHILS % (AUTO) 0.4 %; EOSINOPHILS # (AUTO) 0.1 10^3/uL (0.0-0.7); EOSINOPHILS % (AUTO) 0.9 %; HCT - HEMATOCRIT 32.9 % (37.0-47.0); HGB - HEMOGLOBIN 10.6 g/dL (12.0-16.0); LYMPHOCYTES # (AUTO) 1.8 10^3/uL (1.5-3.5); LYMPHOCYTES % (AUTO) 17.2 %; MEAN CORPUSCULAR HEMOGLOBIN 28.6 pg (27.0-31.0); MEAN CORPUSCULAR HGB CONC 32.2 g/dL (32.0-36.0); MEAN CORPUSCULAR VOLUME 88.9 fL (81.0-99.0); MEAN PLATELET VOLUME 9.3 fL (7.9-10.8); MONOCYTES % (AUTO) 9.4 %; NEUTROPHILS # (AUTO) 7.3 10^3/uL (1.5-6.6); NEUTROPHILS % (AUTO) 71.7 %; PLT - PLATELET COUNT 237 10^3/uL (130-450); RED CELL DISTRIBUTION WIDTH 13.5 % (12.0-15.0); WHITE BLOOD COUNT 10.2 x10^3/uL (4.8-10.8)
[2020-11-17 22:37] LABS: ALBUMIN 3.4 g/dL (3.2-5.5); CALCIUM 8.6 mg/dL (8.5-10.3); CREATININE 0.6 mg/dL (0.4-1.0); POTASSIUM 2.6 mmol/L (3.5-5.0); TOTAL PROTEIN 6.8 g/dL (6.7-8.2)
[2020-11-17] MEDS ORDERED: POTASSIUM CHLORIDE 20 MEQ/15 ML UDC PO STA (23:01)
[2020-11-17] MEDS ORDERED: POTASSIUM CHLOR 10 MEQ/100 ML 10 MEQ/100 ML BAG IV STA (23:01)
[2020-11-18 00:05] VITALS: BP 116/73
[2020-11-18 01:43] LABS: B. PARAPERTUSSIS- RESP PCR PAN NOT DETECTED; B. PERTUSSIS- RESP PCR PANEL NOT DETECTED; C. PNEUMONIAE- RESP PCR PANEL NOT DETECTED; CORONAVIRUS 229E-RESP PCR NOT DETECTED; CORONAVIRUS HKU1-RESP PCR NOT DETECTED; CORONAVIRUS NL63-RESP PCR NOT DETECTED; CORONAVIRUS OC43-RESP PCR NOT DETECTED; HUMAN METAPNEUMOVIRUS NOT DETECTED; INFLUENZA A- RESP PCR PANEL NOT DETECTED; INFLUENZA B - RESP PCR PANEL NOT DETECTED; M. PNEUMONIAE- RESP PCR PANEL NOT DETECTED; PARAINFLUENZA VIRUS 1 NOT DETECTED; PARAINFLUENZA VIRUS 2 NOT DETECTED; PARAINFLUENZA VIRUS 3 NOT DETECTED; PARAINFLUENZA VIRUS 4 NOT DETECTED; RHINOVIRUS/ENTEROVIRUS NOT DETECTED; RSV- RESP PCR PANEL NOT DETECTED; SARS-CoV-2 -RESP PCR PANEL NOT DETECTED
--- NOTE | 2020-11-18 07:32 | XRAY Report ---
PROCEDURE: Chest 1 View X-Ray INDICATIONS: Chest Pain TECHNIQUE: One view of the chest was acquired. COMPARISON: 07/13/2020 FINDINGS: Surgical changes and devices: Right chest Port-A-Cath. Lungs and pleura: No pleural effusions or pneumothorax. Lungs are clear. Mediastinum: Mediastinal contours appear normal. Heart size is normal. Bones and chest wall: No suspicious bony lesions. Overlying soft tissues appear unremarkable. IMPRESSION: No evidence acute pulmonary process. Reviewed by: Chad Mccracken MD on 11/18/2020 7:31 AM PDT Approved by: Chad Mccracken MD on 11/18/2020 7:31 AM PDT Station ID: [id number]
--- NOTE | 2020-11-18 08:04 | CT Report ---
PROCEDURE: HEAD WO INDICATIONS: AMS, possible syncope TECHNIQUE: Noncontrast 4.5 mm thick angled axial sections acquired from the foramen magnum to the vertex. For r adiation dose reduction, the following was used: automated exposure control, adjustment of mA and/or kV according to patient size. COMPARISON: Brain MRI with and without contrast dated , head CT dated 07/14/2020. FINDINGS: Image quality: Excellent. CSF spaces: Basal cisterns are patent. There is a mixed density left parietotemporal convexity subdu ral hematoma with a small amount of postsurgical gas measuring up to 8 mm in thickness at the site of recent craniotomy. Partial resection of extra-axial tumor in the left prepontine cistern. Residual t umor in the medial middle temporal fossa. Ventricles are normal in size and shape. Brain: Mild left sulcal effacement. Ambient cistern is patent. No impending uncal herniation. Perhap s 1 mm of midline shift. No midline shift. No intracranial masses or hemorrhage. Valenzuela-white matter interface is normal. Skull and face: Interval left occipital craniectomy and left temporal craniotomy with partial debulki ng of left planum sphenoidale/cavernous region meningioma, still present. Sinuses: Visualized sinuses and mastoids are clear. IMPRESSION: 1. Interval partial resection of left skull base meningioma. 2. There is a left convexity subdural hematoma with a small amount of gas present subjacent to the cr aniotomy site. It measures approximately 8 mm in maximal thickness. There is mild mass effect. Correl ation with prior postsurgical studies is suggested. 3. No evidence of acute stroke. A preliminary report with the above findings was provided at the time of the study by [facility]. Reviewed by: Chad Mccracken MD on 11/18/2020 8:03 AM PDT Approved by: Chad Mccracken MD on 11/18/2020 8:03 AM PDT Station ID: [id number]
== END 2020-11-18 01:56 | disposition short-term general hospital (02) ==
LOC: EDUNIT# → ED 21:55
DX: S06.5X0A Traumatic subdural hemorrhage without loss of consciousness, initial encounter (principal); W18.30XA Fall on same level, unspecified, initial encounter; E11.9 Type 2 diabetes mellitus without complications; Z79.4 Long term (current) use of insulin; F17.200 Nicotine dependence, unspecified, uncomplicated; Z20.822 Contact with and (suspected) exposure to COVID-19
CPT/HCPCS: 0202U; 36415; 70450; 71045; 80053; 83690; 84484; 85025; 93005; 96361; 96365; 99285; A9270

== ENCOUNTER 2020-12-15 08:00 | Outpatient (CLI) | payer BC | END 2020-12-15 23:59 | disposition home or self-care (01) | LOC: LAB.N 08:00 | PROVIDERS: ATTEND Physician Assistant Medical | DX: N30.00 Acute cystitis without hematuria (principal) | CPT/HCPCS: 87086 ==

== ENCOUNTER 2020-12-15 13:01 | Outpatient (CLI) | payer BC | END 2020-12-15 13:02 | disposition critical access hospital (66) | LOC: EMS 13:01 | DX: R10.30 Lower abdominal pain, unspecified (principal); R42 Dizziness and giddiness; R39.89 Other symptoms and signs involving the genitourinary system | CPT/HCPCS: A0425; A0427 ==

== ENCOUNTER 2020-12-15 13:22 | Emergency (ER) | payer BC ==
[2020-12-15] MEDS ORDERED: BISACODYL 10 MG SUPP PR STA (13:37)
--- NOTE | 2020-12-15 13:37 | ED Physician Documentation ---
PD HPI ABD PAIN - Stated complaint Stated Complaint: ABD/FLANK PX - Chief complaint Chief Complaint: Abd Pain - History obtained from History obtained from: Patient - History of Present Illness Timing - onset: Yesterday (She noted onset of bilateral flank pain yesterday. She had had some on the left mildly for couple of days. Having lower abdominal pain and feeling of urinary urgency and pressure today as well.) Timing - duration: Days (04/24) Timing - details: Gradual onset, Still present Quality: Cramping, Aching, Pain Location: Suprapubic Radiation: Left flank, Right flank Associated symptoms: Nausea, Constipation, Dysuria (feeling of urgency and pressure, feeling like in retention.). No: Fever, Vomiting, Diarrhea Similar symptoms before: Diagnosis (feeling like kidney stones in back, but having pain both sides.) Recently seen: Surgery (brain surgery recently and in [facility] for 2 weeks, then discharged. Fell and was back in hospital for 2 weeks. Released week ago. Did have urinary retention with dobson in hospital. Has had kidney stones in the past.) Review of Systems Constitutional: denies: Fever, Chills Nose: denies: Rhinorrhea / runny nose, Congestion Throat: denies: Sore throat Respiratory: denies: Cough GI: reports: Abdominal Pain, Nausea, Constipation. denies: Vomiting, Diarrhea : reports: Dysuria, Frequency. denies: Hematuria Skin: denies: Rash, Lesions Neurologic: reports: Headache (since surgery). 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 : Kidney stones HEENT: None, Dental implants Psych: None Musculoskeletal: Osteoarthritis, Osteoporosis, Chronic back pain, Other Derm: None - Past Surgical History Past Surgical History: Yes General: Appendectomy Ortho: Arthroscopic surgery /DIVIDING MACHINE OPERATOR: Hysterectomy, Mastectomy - Present Medications Home Medications: Ambulatory Orders Medication Instructions Recorded Confirmed Lactobacillus Rhamnosus GG 1 cap PO DAILY 02/24/13 11/17/20 [Probiotic] Aspirin Chewable [[place] 81 mg PO DAILY 09/29/13 11/17/20 Aspirin] Glucosa Mix 2Kcl/Chondroitin Mix 1 each PO DAILY 09/29/13 11/17/20 [Glucosamine & Chondroitin Cap] metFORMIN [Glucophage] 1,000 mg PO BIDWM 09/29/13 11/17/20 allopurinoL [Allopurinol] 200 mg PO DAILY 10/26/14 11/17/20 hydroCHLOROthiazide 25 mg PO DAILY 10/26/14 11/17/20 [Hydrochlorothiazide] Biotin 300 mcg PO DAILY 06/26/16 11/17/20 Ibuprofen 600 mg PO DAILY 06/26/16 11/17/20 Gabapentin 300 mg PO BID PRN 02/24/19 11/17/20 Calcium Carbonate [Tums (Calcium 500 mg PO DAILY 07/14/20 11/17/20 Carbonate 500mg)] Cholecalciferol (Vitamin D3) 1,000 unit PO DAILY 07/14/20 11/17/20 [Vitamin D3] DULoxetine [Cymbalta] 30 mg PO BID 07/14/20 11/17/20 Insulin 70/30 Human [NovoLIN] 25 units SUBQ DAILY 07/14/20 11/17/20 Magnesium 250 mg PO DAILY 07/14/20 11/17/20 Tamsulosin [Flomax] 0.4 mg PO DAILY PRN 07/14/20 11/17/20 Vitamin B Complex 1 tab PO DAILY 07/14/20 11/17/20 Oxycodone HCl/Acetaminophen 1 - 2 each PO Q6H PRN #14 tablet 09/28/20 11/17/20 [Percocet 5-325 mg Tablet] Ciprofloxacin HCl [Cipro] 500 mg PO BID #14 tablet 09/30/20 11/17/20 Insulin 70/30 Human [NovoLIN] 25 units SUBQ QPM 09/30/20 11/17/20 Docusate Sodium 100Mg Capsule 100 mg PO DAILY #20 cap 12/15/20 [Colace 100Mg Capsule] HYDROcod/ACETAM 5/325 [[place] 5/325] 1 ea PO Q6H PRN #20 tablet 12/15/20 Ondansetron Odt [Zofran] 4 mg TL Q6H PRN #10 tablet 12/15/20 Potassium Chloride 20 meq PO DAILY 15 Days #15 12/15/20 Tamsulosin [Flomax] 0.4 mg PO DAILY #5 cap 12/15/20 cephALEXin [Keflex] 500 mg PO TID #20 cap 12/15/20 - Allergies Allergies/Adverse Reactions: Allergies Allergy/AdvReac Type Severity Reaction Status Date / Time latex AdvReac Mild Sensitivity/Red Verified 12/15/20 13:32 irritated skin - Social History Does the pt smoke?: Yes Smoking Status: Current every day smoker Does the pt drink ETOH?: No Does the pt have substance abuse?: No - Immunizations Immunizations are current?: Yes - POLST Patient has POLST: No PD ED PE NORMAL - Vitals Vital signs reviewed: Yes - General General: Alert and oriented X 3, No acute distress, Well developed/nourished - Neck Neck: Supple, no meningeal sign, No adenopathy - Cardiac Cardiac: RRR, No murmur - Respiratory Respiratory: Clear bilaterally - Abdomen Abdomen: Normal bowel sounds, Soft, Non distended, No organomegaly, Other (some tenderness suprapubic without distension. No upper abd tenderness. Bilateral mild CVA tenderness. ) - Female Female : Deferred - Rectal Rectal: Deferred - Back Back: No spinal TTP - Derm Derm: Normal color, Warm and dry - Extremities Extremities: No edema, No calf tenderness / cord - Neuro Neuro: Alert and oriented X 3, No motor deficit, No sensory deficit, Normal speech Results - Vitals Vitals: Vital Signs - 24 hr 12/15/20 12/15/20 13:29 15:29 Temperature 99.1 C H Heart Rate 92 74 Respiratory 16 18 Rate Blood Pressure 147/96 H 128/75 O2 Saturation 98 96 Oxygen O2 Source Room air - Labs Labs: Laboratory Tests 12/15/20 12/15/20 12/15/20 14:07 14:07 14:29 WBC 10.1 RBC 4.32 Hgb 11.9 L Hct 36.5 L MCV 84.5 MCH 27.5 MCHC 32.6 RDW 13.5 Plt Count 263 MPV 10.2 Neut # (Auto) 7.1 H Lymph # (Auto) 1.6 [place] # (Auto) 1.2 H Eos # (Auto) 0.2 Baso # (Auto) 0.1 Absolute Nucleated RBC 0.00 Nucleated RBC % 0.0 Sodium 132 L Potassium 2.4 L* Chloride 89 L Carbon Dioxide 26 Anion Gap 17.0 H BUN 15 Creatinine 0.8 Estimated GFR (MDRD) 72 L Glucose 201 H Calcium 9.5 Total Bilirubin 0.8 AST 15 ALT 14 Alkaline Phosphatase 73 Total Protein 7.7 Albumin 3.7 Globulin 4.0 Albumin/Globulin Ratio 0.9 L Lipase 18 L Urine Color YELLOW Urine Clarity CLOUDY Urine pH 6.0 Ur Specific [place] 1.015 Urine Protein 30 H Urine Glucose (UA) NEGATIVE Urine Ketones NEGATIVE Urine Occult Blood LARGE H Urine Nitrite NEGATIVE Urine Bilirubin NEGATIVE Urine Urobilinogen 0.2 (NORMAL) Ur Leukocyte Esterase LARGE H Urine RBC 11-25 H Urine WBC >25 H Urine WBC Clumps PRESENT Ur Squamous Epith Cells FEW Squamous Urine Bacteria Few Ur Microscopic Review INDICATED Urine Culture Comments INDICATED - Rads (name of study) abd/pelvic CT Radiology: Prelim report reviewed (bilateral ureteral stones mid ureter 5-6 mm. Mild hydronephrosis left with some stranding. No right hydro nor stranding. ), See rad report PD MEDICAL DECISION MAKING - ED course Complexity details: re-evaluated patient (Bladder scanner showed a small amount only. Urinalysis is consistent with UTI. She does have bilateral mid ureteral kidney stones. No hydro on the right. Mild on the left. She does not seem ill with normal white count and no fever. I do not feel that it is pyelonephritis. She is better here.), considered differential (consider UTI, kidney stones, retention.), d/w patient ED course: The patient very much prefers going home. She does not seem septic or pyelonephritis. She is improved with fluids and pain medicine here. Given to start a dose of IV antibiotics. She is quite comfortable and sitting up in the chair when I go back to check on her. She has her clothes on is and is asking about discharge. Departure - Departure Disposition: 01 Home, Self Care Clinical Impression: Dysuria, Acute flank pain, Kidney stones, Hypokalemia UTI (urinary tract infection) Qualifiers: Urinary tract infection type: acute cystitis Hematuria presence: without hematuria Qualified Code(s): N30.00 - Acute cystitis without hematuria Condition: Stable Record reviewed to determine appropriate education?: Yes Instructions: ED UTI Cystitis Female, ED Stone Renal W Colic Follow-Up: Hieu Arcos DO [Primary Care Provider] - Hailee Tejeda MD [Provider Admit Priv/Credential] - Prescriptions: Docusate Sodium 100Mg Capsule [Colace 100Mg Capsule] 100 mg PO DAILY #20 cap Tamsulosin [Flomax] 0.4 mg PO DAILY #5 cap cephALEXin [Keflex] 500 mg PO TID #20 cap HYDROcod/ACETAM 5/325 [[place] 5/325] 1 ea PO Q6H PRN #20 tablet PRN Reason: Pain Potassium Chloride 20 meq PO DAILY 15 Days #15 Ondansetron Odt [Zofran] 4 mg TL Q6H PRN #10 tablet PRN Reason: Nausea / Vomiting Comments: Your potassium level is lower than your usual low so I would suggest adding a potassium supplement daily. Stay well-hydrated. Your urine sample does look to be a urinary infection. We can add cephalexin antibiotic for that. Your flank pain appears to be related to kidney stones passing on both sides at the same time. They are about 5 mm in size and are usually a passable size. There is only minimal appearance of back pressure up to the kidneys. We can treat this with tamsulosin to try to promote passage of the stone. Also Tylenol every 6 hours if needed for pain or hydrocodone if needed for worse pain. Add ondansetron if needed for nausea. Docusate stool softener daily for the next week or 2 to help with mild constipation. Follow-up with your primary care in the next several days or so. Call for an appointment. Also I would suggest following up with urology given the several kidney stones not only passing in the ureter but you have several more in the kidneys themselves. Discharge Date/Time: 12/15/20 17:24
[2020-12-15 14:12] LABS: BASOPHILS # (AUTO) 0.1 10^3/uL (0.0-0.1); BASOPHILS % (AUTO) 0.6 %; EOSINOPHILS # (AUTO) 0.2 10^3/uL (0.0-0.7); EOSINOPHILS % (AUTO) 1.9 %; HCT - HEMATOCRIT 36.5 % (37.0-47.0); HGB - HEMOGLOBIN 11.9 g/dL (12.0-16.0); LYMPHOCYTES # (AUTO) 1.6 10^3/uL (1.5-3.5); LYMPHOCYTES % (AUTO) 15.8 %; MEAN CORPUSCULAR HEMOGLOBIN 27.5 pg (27.0-31.0); MEAN CORPUSCULAR HGB CONC 32.6 g/dL (32.0-36.0); MEAN CORPUSCULAR VOLUME 84.5 fL (81.0-99.0); MEAN PLATELET VOLUME 10.2 fL (7.9-10.8); MONOCYTES # (AUTO) 1.2 10^3/uL (0.0-1.0); MONOCYTES % (AUTO) 11.4 %; NEUTROPHILS # (AUTO) 7.1 10^3/uL (1.5-6.6); NEUTROPHILS % (AUTO) 69.9 %; PLT - PLATELET COUNT 263 10^3/uL (130-450); RED BLOOD COUNT 4.32 10^6/uL (4.20-5.40); RED CELL DISTRIBUTION WIDTH 13.5 % (12.0-15.0); WHITE BLOOD COUNT 10.1 x10^3/uL (4.8-10.8)
[2020-12-15 14:27] LABS: ALBUMIN 3.7 g/dL (3.2-5.5); ALBUMIN/GLOBULIN RATIO 0.9 (1.0-2.2); BILIRUBIN,TOTAL 0.8 mg/dL (0.2-1.0); CALCIUM 9.5 mg/dL (8.5-10.3); CREATININE 0.8 mg/dL (0.4-1.0); TOTAL PROTEIN 7.7 g/dL (6.7-8.2)
[2020-12-15 14:28] LABS: POTASSIUM 2.4 mmol/L (3.5-5.0)
--- NOTE | 2020-12-15 14:36 | CT Report ---
PROCEDURE: Abdomen/Pelvis WO INDICATIONS: flank and abd pain, history of stones. TECHNIQUE: Noncontrast 5 mm thick sections acquired from the diaphragms to the symphysis. 5 mm coronal and sagi ttal reformats were then performed. For radiation dose reduction, the following was used: automated exposure control, adjustment of mA and/or kV according to patient size. COMPARISON: 09/28/2020. FINDINGS: Image quality: Excellent. ABDOMEN: Lung bases: Lung bases are clear. Heart size is normal. Visualized portion of right breast implant is grossly intact. Solid organs: There is mild hepatomegaly and hepatic steatosis. Spleen is normal in size. Gallbladder is within normal limits. Pancreas is normal in contours. No adrenal nodules. Bilateral kidneys are normal in size. Nonobstructing bilateral renal calculi are seen measures up to 7 mm in size in lower pole of right kidney. There is mild to moderate left-sided hydronephrosis and p roximal hydroureter. 5 mm stone is seen in proximal left ureter. There is also a 6 mm stone seen more distal proximal to mid left ureter. No right-sided hydronephrosis. Right ureter is within normal naranjo its. Peritoneum and bowel: Unenhanced bowel loops demonstrate normal wall thickness and caliber. No free fluid or air. Appendix is surgically absent. Nodes and vessels: No retroperitoneal or mesenteric adenopathy by size criteria. Aorta and inferior vena cava are normal in caliber. Miscellaneous: No ventral hernias. PELVIS: Genitourinary: Bladder wall thickness is normal. No calcified bladder stone. Miscellaneous: No inguinal hernias or adenopathy. Surgical clip is seen in right inguinal region. Bones: No suspicious bony lesions. No vertebral body compression fractures. IMPRESSION: 1. 2 left proximal ureteral stones with mild to moderate left-sided hydronephrosis and mild left cameron nephric fat stranding. 2. Bilateral nonobstructing stones. No right-sided hydronephrosis. Normal-appearing right ureter and urinary bladder. 3. Mild hepatomegaly and hepatic steatosis. 4. No bowel obstruction or abnormal bowel wall thickening. No free fluid or free air. Reviewed by: Hector Ramirez MD on 12/15/2020 2:35 PM PDT Approved by: Hector Ramirez MD on 12/15/2020 2:35 PM PDT Station ID: [id number]
[2020-12-15 14:50] LABS: BILIRUBIN,URINE NEGATIVE (NEGATIVE); GLUCOSE, URINE (UA) NEGATIVE (NEGATIVE); KETONES,URINE (UA) NEGATIVE (NEGATIVE); LEUKOCYTE ESTERASE, URINE LARGE (NEGATIVE); NITRITE,URINE NEGATIVE (NEGATIVE); OCCULT BLOOD,URINE LARGE (NEGATIVE); PROTEIN,URINE 30 mg/dL (NEGATIVE); UROBILINOGEN,URINE 0.2 (NORMAL) E.U./dL (NORMAL)
[2020-12-15 14:56] LABS: CLARITY,URINE CLOUDY (CLEAR)
[2020-12-15 14:57] LABS: BACTERIA,URINE Few /HPF (None Seen); SQUAMOUS EPITHELIAL CELL,UR FEW Squamous (<= Few); WBC CLUMPS,URINE PRESENT; WBC,URINE >25 /HPF (0-5)
[2020-12-15] MEDS ORDERED: KETOROLAC 15 MG/ML VIAL IVP STA (15:15)
[2020-12-15] MEDS ORDERED: HYDROmorphone 1 MG/ML CARPUJECT IVP STA (15:15)
[2020-12-15] MEDS ORDERED: TAMSULOSIN 0.4 MG CAPSULE PO STA (15:16)
[2020-12-15] MEDS ORDERED: POTASSIUM CHLORIDE 20 MEQ TABLET PO STA (15:16)
[2020-12-15] MEDS ORDERED: cefTRIAXone 1 GM VIAL IVP STA (15:16)
[2020-12-15 15:29] VITALS: BP 128/75
[2020-12-15] MEDS ORDERED: ONDANSETRON 4 MG/2 ML VIAL IVP STA (15:37)
== END 2020-12-15 17:24 | disposition home or self-care (01) ==
LOC: EDUNIT# → ED 13:22
DX: N30.00 Acute cystitis without hematuria (principal); N13.2 Hydronephrosis with renal and ureteral calculous obstruction; E87.6 Hypokalemia; E11.9 Type 2 diabetes mellitus without complications; Z79.4 Long term (current) use of insulin; F17.200 Nicotine dependence, unspecified, uncomplicated
CPT/HCPCS: 36415; 51798; 74176; 80053; 81001; 83690; 85025; 87086; 93005; 96374; 96375; 99284; 99285; A9270; J1170; 81003; 87181

== ENCOUNTER 2021-01-07 18:50 | Outpatient (CLI) | payer BC | END 2021-01-07 18:51 | disposition critical access hospital (66) | LOC: EMS 18:50 | DX: R40.0 Somnolence (principal); R51.9 Headache, unspecified; R11.0 Nausea | CPT/HCPCS: A0425; A0427 ==

== ENCOUNTER 2021-01-07 19:09 | Emergency (ER) | payer BC ==
--- NOTE | 2021-01-07 19:29 | ED Physician Documentation ---
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 : Kidney stones HEENT: None, Dental implants Psych: None Musculoskeletal: Osteoarthritis, Osteoporosis, Chronic back pain, Other Derm: None - Past Surgical History Past Surgical History: Yes General: Appendectomy Ortho: Arthroscopic surgery /MANAGER 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: Hysterectomy, Mastectomy - Present Medications Home Medications: Ambulatory Orders Medication Instructions Recorded Confirmed Lactobacillus Rhamnosus GG 1 cap PO DAILY 02/24/13 01/07/21 [Probiotic] Glucosa Mix 2Kcl/Chondroitin Mix 1 each PO DAILY 09/29/13 01/07/21 [Glucosamine & Chondroitin Cap] metFORMIN [Glucophage] 1,000 mg PO BIDWM 09/29/13 01/07/21 allopurinoL [Allopurinol] 200 mg PO DAILY 10/26/14 01/07/21 hydroCHLOROthiazide 25 mg PO DAILY 10/26/14 01/07/21 [Hydrochlorothiazide] Biotin 300 mcg PO DAILY 06/26/16 01/07/21 Ibuprofen 600 mg PO DAILY 06/26/16 01/07/21 Gabapentin 300 mg PO BID PRN 02/24/19 01/07/21 Calcium Carbonate [Tums (Calcium 500 mg PO DAILY 07/14/20 01/07/21 Carbonate 500mg)] Cholecalciferol (Vitamin D3) 1,000 unit PO DAILY 07/14/20 01/07/21 [Vitamin D3] DULoxetine [Cymbalta] 30 mg PO BID 07/14/20 01/07/21 Magnesium 250 mg PO DAILY 07/14/20 01/07/21 Vitamin B Complex 1 tab PO DAILY 07/14/20 01/07/21 Docusate Sodium 100Mg Capsule 100 mg PO DAILY #20 cap 12/15/20 01/07/21 [Colace 100Mg Capsule] Ondansetron Odt [Zofran] 4 mg TL Q6H PRN #10 tablet 12/15/20 01/07/21 Ciprofloxacin HCl [Cipro] 500 mg PO BID #20 tablet 01/07/21 Tamsulosin [Flomax] 0.4 mg PO DAILY 01/07/21 01/07/21 - Allergies Allergies/Adverse Reactions: Allergies Allergy/AdvReac Type Severity Reaction Status Date / Time latex AdvReac Mild Sensitivity/Red Verified 12/15/20 13:32 irritated skin - Social History Does the pt smoke?: Yes Smoking Status: Current every day smoker Does the pt drink ETOH?: No Does the pt have substance abuse?: No - Immunizations Immunizations are current?: Yes - POLST Patient has POLST: No Results - Vitals Vitals: Vital Signs - 24 hr 01/07/21 19:25 Temperature 36.0 C L Heart Rate 104 H Respiratory 16 Rate Blood Pressure 140/76 H O2 Saturation 93 Oxygen O2 Source Room air - Labs Labs: Laboratory Tests 01/07/21 01/07/21 01/07/21 19:34 19:35 19:35 WBC 15.3 H RBC 4.14 L Hgb 11.4 L Hct 36.3 L MCV 87.7 MCH 27.5 MCHC 31.4 L RDW 15.4 H Plt Count 220 MPV 10.0 Neut # (Auto) 12.7 H Lymph # (Auto) 0.9 L [place] # (Auto) 1.6 H Eos # (Auto) 0.0 Baso # (Auto) 0.1 Absolute Nucleated RBC 0.00 Band Neuts % (Manual) Not Reportable Abnorm Lymph % (Manual) Not Reportable Nucleated RBC % 0.0 Neutrophils # (Manual) Not Reportable Lymphocytes # (Manual) Not Reportable Monocytes # (Manual) Not Reportable Eosinophils # (Manual) Not Reportable Basophils # (Manual) Not Reportable Differential Comment MANUAL=AUTO DIFF Platelet Estimate NORMAL (130-450,000) Platelet Morphology NORMAL APPEARANCE RBC Morph Micro Appear NORMAL APPEARANCE Urine Color YELLOW Urine Clarity SL. CLOUDY Urine pH 7.5 Ur Specific [place] 1.015 Urine Protein TRACE Urine Glucose (UA) NEGATIVE Urine Ketones 15 H Urine Occult Blood SMALL H Urine Nitrite POSITIVE H Urine Bilirubin NEGATIVE Urine Urobilinogen 0.2 (NORMAL) Ur Leukocyte Esterase SMALL H Ur Microscopic Review INDICATED Urine Culture Comments Not Reportable Urine Opiates Screen POSITIVE H Ur Oxycodone Screen NEGATIVE Urine Methadone Screen NEGATIVE Ur Propoxyphene Screen NEGATIVE Ur Barbiturates Screen NEGATIVE Ur Tricyclics Screen NEGATIVE Ur Phencyclidine Scrn NEGATIVE Ur Amphetamine Screen NEGATIVE U Methamphetamines Scrn NEGATIVE U Benzodiazepines Scrn NEGATIVE Urine Cocaine Screen NEGATIVE U Cannabinoids Screen NEGATIVE PD MEDICAL DECISION MAKING - ED course ED course: 65-year-old woman with recent craniotomy has had issues with episodic altered mental status. Patient feels like it is recurrent UTI with dysuria and foul- smelling urine. Given the elevated white blood cell count seems reasonable to treat as pyelonephritis. Mental status normal here. Labs otherwise unremarkable. CT of the head was interpreted independently by me given power outage, Internet outage and lack of ability to send pictures to the radiologist in a timely manner. Looks like improving postsurgical changes on the left compared to the prior. Departure - Departure Disposition: Home, Self Care Clinical Impression: Pyelonephritis Altered mental status Qualifiers: Altered mental status type: delirium Qualified Code(s): R41.0 - Disorientation, unspecified Condition: Good Record reviewed to determine appropriate education?: Yes Instructions: Pyelonephritis Dc Prescriptions: Ciprofloxacin HCl [Cipro] 500 mg PO BID #20 tablet Comments: Call your doctor to arrange a follow-up appointment, make the next available appointment. In the interim, return anytime if worse or if new symptoms develop. We will culture your urine, the results should be done in 48-72 hours. If an antibiotic change is necessary we will call you. Return if worse in the meantime, especially if you develop increasing flank pain, fevers, or cannot keep down the medication.
[2021-01-07 20:21] LABS: MUDS CUTOFF CONCENTRATIONS CUTOFF CONC BELOW:
[2021-01-07 20:30] LABS: BASOPHILS # (AUTO) 0.1 10^3/uL (0.0-0.1); BASOPHILS % (AUTO) 0.3 %; HCT - HEMATOCRIT 36.3 % (37.0-47.0); HGB - HEMOGLOBIN 11.4 g/dL (12.0-16.0); LYMPHOCYTES # (AUTO) 0.9 10^3/uL (1.5-3.5); LYMPHOCYTES % (AUTO) 5.6 %; MEAN CORPUSCULAR HEMOGLOBIN 27.5 pg (27.0-31.0); MEAN CORPUSCULAR HGB CONC 31.4 g/dL (32.0-36.0); MEAN CORPUSCULAR VOLUME 87.7 fL (81.0-99.0); MONOCYTES # (AUTO) 1.6 10^3/uL (0.0-1.0); MONOCYTES % (AUTO) 10.6 %; NEUTROPHILS # (AUTO) 12.7 10^3/uL (1.5-6.6); NEUTROPHILS % (AUTO) 82.8 %; PLT - PLATELET COUNT 220 10^3/uL (130-450); RED BLOOD COUNT 4.14 10^6/uL (4.20-5.40); RED CELL DISTRIBUTION WIDTH 15.4 % (12.0-15.0); WHITE BLOOD COUNT 15.3 x10^3/uL (4.8-10.8)
[2021-01-07 20:30] LABS: AMPHETAMINE SCREEN,URINE NEGATIVE (NEGATIVE); BARBITURATE SCREEN,UR NEGATIVE (NEGATIVE); BENZODIAZEPINES SCREEN, URINE NEGATIVE (NEGATIVE); COCAINE SCREEN URINE NEGATIVE (NEGATIVE); METHADONE SCREEN, URINE NEGATIVE (NEGATIVE); METHAMPHETAMINES SCREEN, URINE NEGATIVE (NEGATIVE); OPIATE SCREEN, URINE POSITIVE (NEGATIVE); OXYCODONE SCREEN, URINE NEGATIVE (NEGATIVE); PROPOXYPHENE SCREEN, URINE NEGATIVE (NEGATIVE); THC CANNABINOID SCREEN, URINE NEGATIVE (NEGATIVE); TRICYCLIC ANTIDEPRESSANT,URINE NEGATIVE (NEGATIVE)
[2021-01-07 20:32] LABS: RBC MORPHOLOGY (MULTIPLE) NORMAL APPEARANCE (NORMAL)
[2021-01-07 20:33] LABS: DIFFERENTIAL COMMENT MANUAL=AUTO DIFF; PLATELET ESTIMATE, MANUAL NORMAL (130-450,000) (NORMAL); PLATELET MORPHOLOGY NORMAL APPEARANCE (NORMAL)
[2021-01-07 20:50] LABS: BILIRUBIN,URINE NEGATIVE (NEGATIVE); CLARITY,URINE SL. CLOUDY (CLEAR); GLUCOSE, URINE (UA) NEGATIVE (NEGATIVE); KETONES,URINE (UA) 15 mg/dL (NEGATIVE); LEUKOCYTE ESTERASE, URINE SMALL (NEGATIVE); NITRITE,URINE POSITIVE (NEGATIVE); OCCULT BLOOD,URINE SMALL (NEGATIVE); PH,URINE 7.5 PH (5.0-7.5); PROTEIN,URINE TRACE mg/dL (NEGATIVE); UROBILINOGEN,URINE 0.2 (NORMAL) E.U./dL (NORMAL)
[2021-01-07 21:14] LABS: BACTERIA,URINE Few /HPF (None Seen); SQUAMOUS EPITHELIAL CELL,UR RARE Squamous (<= Few)
[2021-01-07] MEDS ORDERED: CIPROFLOXACIN 250 MG TABLET PO STA (21:14)
[2021-01-07 21:30] VITALS: BP 104/57
--- NOTE | 2021-01-08 16:11 | CT Report ---
PROCEDURE: HEAD WO INDICATIONS: ALTERED TECHNIQUE: Noncontrast 4.5 mm thick angled axial sections acquired from the foramen magnum to the vertex. For r adiation dose reduction, the following was used: automated exposure control, adjustment of mA and/or kV according to patient size. COMPARISON: 11/17/2020, 07/14/2020, 07/13/2020. Correlation is also made with prior brain MRI, . This study is presented for interpretation on the afternoon of 01/08/2021. FINDINGS: Image quality: There is streak artifact seen through the skull base. CSF spaces: Basal cisterns are patent. No extra-axial fluid collections. Ventricles are normal in size and shape. Brain: No midline shift. No intracranial masses or hemorrhage. Valenzuela-white matter interface is norm al. There is apparent thickening/opacification seen of the left lateral dura. This is overall improved co mpared to the prior study. No acute superimposed hemorrhage is seen. Skull and face: Left-sided craniotomy changes are seen. Calvarium and visualized facial bones are in tact, without suspicious lesions. Sinuses: Visualized sinuses and mastoids are clear. IMPRESSION: Unremarkable postoperative study, without an acute process identified. No new hemorrhage can be seen. The left-sided postoperative changes appear improved compared to the prior head CT examination. Note: Concordant preliminary findings discussed between Dr. Gomez and the care team on the night of 01/07/2021. Reviewed by: Thomas Chaney MD on 01/08/2021 3:10 PM PRJOSHUA Approved by: Thomas Chaney MD on 01/08/2021 3:10 PM PRJOSHUA Station ID: [id number]
== END 2021-01-07 21:54 | disposition home or self-care (01) ==
LOC: ED 19:09
DX: N12 Tubulo-interstitial nephritis, not specified as acute or chronic (principal); R41.0 Disorientation, unspecified
CPT/HCPCS: 36415; 70450; 80306; 81001; 85025; 87077; 87086; 87181; 99284; A9270; 81003

== ENCOUNTER 2021-01-13 08:00 | Outpatient (CLI) | payer BC ==
[2021-01-13 18:12] LABS: CALCIUM 10.2 mg/dL (8.5-10.3); CREATININE 0.6 mg/dL (0.4-1.0); POTASSIUM 3.7 mmol/L (3.5-5.0)
== END 2021-01-13 23:59 | disposition home or self-care (01) ==
LOC: LAB.WCP 08:00
PROVIDERS: ATTEND Family Medicine
DX: E87.6 Hypokalemia (principal)
CPT/HCPCS: 36415; 80048

== ENCOUNTER 2023-01-24 14:10 | Emergency (ER) | payer BC, MEDICARE ==
[2023-01-24 14:31] VITALS: O2SAT 100
--- NOTE | 2023-01-24 14:42 | ED Physician Documentation ---
PD HPI BACK PAIN - Stated complaint Stated Complaint: BACK PX - Chief complaint Chief Complaint: Back Pain - History obtained from History obtained from: Patient - History of Present Illness Timing - onset: How many days ago (has had sharp pain lower thoracic area since lifting and moving boxes few days ago. Had had a fall 2 months ago with injury to that area and had improved. Pain onset again now without direct impact/injury.) Timing - duration: Days Timing - details: Abrupt onset, Still present Quality: Pain, Spasm, Sharp Associated symptoms: No: Fever, Weakness, Numbness Worsened by: Movement, Lifting, Twisting. 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 : Kidney stones HEENT: None, Dental implants Psych: None Musculoskeletal: Osteoarthritis, Osteoporosis, Chronic back pain, Other Derm: None - Past Surgical History Past Surgical History: Yes General: Appendectomy Ortho: Arthroscopic surgery /BOARD SETTER: Hysterectomy, Mastectomy - Present Medications Home Medications: Ambulatory Orders Medication Instructions Recorded Confirmed Lactobacillus Rhamnosus GG 1 cap PO DAILY 02/24/13 01/07/21 [Probiotic] Glucosa Mix 2Kcl/Chondroitin Mix 1 each PO DAILY 09/29/13 01/07/21 [Glucosamine & Chondroitin Cap] metFORMIN [Glucophage] 1,000 mg PO BIDWM 09/29/13 01/07/21 allopurinoL [Allopurinol] 200 mg PO DAILY 10/26/14 01/07/21 hydroCHLOROthiazide 25 mg PO DAILY 10/26/14 01/07/21 [Hydrochlorothiazide] Biotin 300 mcg PO DAILY 06/26/16 01/07/21 Ibuprofen 600 mg PO DAILY 06/26/16 01/07/21 Gabapentin 300 mg PO BID PRN 02/24/19 01/07/21 Calcium Carbonate [Tums (Calcium 500 mg PO DAILY 07/14/20 01/07/21 Carbonate 500mg)] Cholecalciferol (Vitamin D3) 1,000 unit PO DAILY 07/14/20 01/07/21 [Vitamin D3] DULoxetine [Cymbalta] 30 mg PO BID 07/14/20 01/07/21 Magnesium 250 mg PO DAILY 07/14/20 01/07/21 Vitamin B Complex 1 tab PO DAILY 07/14/20 01/07/21 Docusate Sodium 100Mg Capsule 100 mg PO DAILY #20 cap 12/15/20 01/07/21 [Colace 100Mg Capsule] Ondansetron Odt [Zofran] 4 mg TL Q6H PRN #10 tablet 12/15/20 01/07/21 Ciprofloxacin HCl [Cipro] 500 mg PO BID #20 tablet 01/07/21 Tamsulosin [Flomax] 0.4 mg PO DAILY 01/07/21 01/07/21 HYDROcod/ACETAM 5/325 [[place] 5/325] 1 ea PO Q6H PRN #10 tablet 01/24/23 lidocaine HCL [Lidaflex] 1 each TP DAILY PRN #10 patch 01/24/23 methocarbamoL [Robaxin] 500 mg PO Q6H PRN #30 tablet 01/24/23 - Allergies Allergies/Adverse Reactions: Allergies Allergy/AdvReac Type Severity Reaction Status Date / Time latex AdvReac Mild Sensitivity/Red Verified 01/24/23 14:28 irritated skin - Social History Does the pt smoke?: Yes Smoking Status: Current every day smoker Does the pt drink ETOH?: No Does the pt have substance abuse?: No - Immunizations Immunizations are current?: Yes - POLST Patient has POLST: No PD ED PE NORMAL - Vitals Vital signs reviewed: Yes - General General: Alert and oriented X 3, Well developed/nourished, Other (appears in pain with ROM of the trunk. Some pain with lifting left arm. ) - Neck Neck: Supple, no meningeal sign, No bony TTP - Cardiac Cardiac: RRR, No murmur - Respiratory Respiratory: Clear bilaterally - Abdomen Abdomen: Soft, Non tender - Derm Derm: Normal color, Warm and dry - Extremities Extremities: No edema, No calf tenderness / cord - Neuro Neuro: Alert and oriented X 3, No motor deficit, No sensory deficit, Normal speech Results - Vitals Vitals: Oxygen O2 Source Room air - Rads (name of study) thoracic CT Relevant Findings:: Prelim report reviewed (no acute fractures seen. ), EMP independent interpretation of test PD Medical Decision Making - ED course Complexity details: reviewed old records (no LAUREN though [place] been [place] of [place] 2 [place] and recently moving back to [facility]. ), reviewed results (no acute fractures seen.), considered differential (had direct impact injury 2 months ago to that area, now sharp pain with lifting. COnsider underlying fractures/ partly healed. If so, would be difficult finding on plain film so get CT. ), d/w patient Departure - Departure Disposition: 01 Home, Self Care Clinical Impression: Acute thoracic back pain Condition: Stable Record reviewed to determine appropriate education?: Yes Instructions: ED Sprain Thoracic Spine Prescriptions: lidocaine HCL [Lidaflex] 1 each TP DAILY PRN #10 patch PRN Reason: Pain 1-4 HYDROcod/ACETAM 5/325 [[place] 5/325] 1 ea PO Q6H PRN #10 tablet PRN Reason: Pain methocarbamoL [Robaxin] 500 mg PO Q6H PRN #30 tablet PRN Reason: Spasms Comments: Your CT scan does not show any acute bony abnormalities of the spine or nearby ribs. No significant disc protrusions or abnormalities. At this point would presume some either bruising of the soft tissue or seems more likely muscle strain with spasm. Use Tylenol 500 to 650 mg 4 times daily for the next several days to week. You can add Robaxin muscle relaxant to help with pain and spasm. I did do an injection locally with some triamcinolone steroid medication and see if that has a local effect as an anti-inflammatory. To that add hydrocodone every 6-8 hours if needed for worse pain with intention being just short-term as this should improve over the next several days. You could try topical lidocaine patch to the area as well. I sent a prescription to your preferred pharmacy. I am prescribing a short course of narcotic pain medication for you. These are potentially dangerous and addictive medications that should be used carefully. These medications may constipate you. Take an [id number] stool softener such as docusate twice daily with plenty of water while taking these medications. If you go 24 hours without a bowel movement, take [id number] MiraLAX, per package instructions. Do not drink or drive while taking these medications. If you received narcotic or sedating medications while in the emergency department do not drive for 24 hours. Store this medication in a safe, secure place and out of reach of children. It is a violation of federal law to give or sell this medication to another person or to use in a manner other than prescribed. The ED will not refill narcotic prescriptions, including prescriptions lost or stolen. You can dispose of unwanted medications at the [facility]'s office or at several pharmacies such as [facility]. Discharge Date/Time: 01/24/23 17:13
[2023-01-24] MEDS ORDERED: TRIAMCINOLONE 40 MG/ML VIAL MC STA (15:09)
[2023-01-24] MEDS ORDERED: ACETAMINOPHEN 325 MG TABLET PO STA (15:09)
[2023-01-24] MEDS ORDERED: KETOROLAC 30 MG/ML VIAL IM STA (15:09)
[2023-01-24 16:39] VITALS: BP 150/70
--- NOTE | 2023-01-24 16:59 | CT Report ---
PROCEDURE: THORACIC SPINE WO INDICATIONS: fall with injury/pain right lower thoracic TECHNIQUE: Noncontrast 3 mm thick sections acquired through the region of interest in the thoracic spine. Sagit ilya and coronal reformats were then constructed. For radiation dose reduction, the following was used : automated exposure control, adjustment of mA and/or kV according to patient size. COMPARISON: Correlation is made with chest x-ray, 07/13/2020. FINDINGS: Image quality: Excellent. Bones: No acute vertebral body compression fractures. No suspicious sclerotic or lytic bony lesions . Central spinal canal is of normal overall caliber. There is accentuated thoracic kyphosis. No significant AP alignment abnormality can be seen. Age-appropriate degenerative changes are seen. Soft tissues: A small amount soft tissue gas can be seen posteriorly and on the right, as on series 3 image 66. No paravertebral masses or hematomas. Visualized posteromedial lungs appear clear. A right-sided ch est port is partially seen. No obstructing left-sided kidney stones are seen and measure up to 3 mm. IMPRESSION: No acute fractures are seen. There is a small amount of soft tissue gas within the subcutaneous fat, posteriorly and on the right. Correlate with a penetrating injury. Additional findings: Right-sided chest port Nonobstructing left-sided kidney stones Reviewed by: Thomas Chaney MD on 01/24/2023 3:58 PM [facility] Approved by: Thomas Chaney MD on 01/24/2023 3:58 PM AKJOSHUA Station ID: [id number]
== END 2023-01-24 17:13 | disposition home or self-care (01) ==
LOC: ED 14:10
DX: M54.6 Pain in thoracic spine (principal); F17.200 Nicotine dependence, unspecified, uncomplicated; E11.9 Type 2 diabetes mellitus without complications; Z79.84 Long term (current) use of oral hypoglycemic drugs; Z79.899 Other long term (current) drug therapy
CPT/HCPCS: 72128; 96372; 99284; A9270

== ENCOUNTER 2023-03-10 23:13 | Outpatient (CLI) | payer MEDICARE, OTHER | END 2023-03-10 23:14 | disposition home or self-care (01) | LOC: EMS 23:13 | DX: R07.9 Chest pain, unspecified (principal); R11.2 Nausea with vomiting, unspecified | CPT/HCPCS: A0425; A0427 ==

== ENCOUNTER 2023-03-10 23:32 | Emergency (ER) | payer MEDICARE, OTHER ==
[2023-03-10 23:51] LABS: BASOPHILS # (AUTO) 0.1 10^3/uL (0.0-0.1); EOSINOPHILS # (AUTO) 0.1 10^3/uL (0.0-0.7); EOSINOPHILS % (AUTO) 1.8 %; HGB - HEMOGLOBIN 11.8 g/dL (12.0-16.0); LYMPHOCYTES % (AUTO) 25.4 %; MEAN CORPUSCULAR HEMOGLOBIN 29.3 pg (27.0-31.0); MEAN CORPUSCULAR HGB CONC 31.9 g/dL (32.0-36.0); MEAN CORPUSCULAR VOLUME 91.8 fL (81.0-99.0); MEAN PLATELET VOLUME 9.6 fL (7.9-10.8); MONOCYTES # (AUTO) 0.7 10^3/uL (0.0-1.0); MONOCYTES % (AUTO) 8.8 %; NEUTROPHILS # (AUTO) 4.9 10^3/uL (1.5-6.6); NEUTROPHILS % (AUTO) 62.4 %; PLT - PLATELET COUNT 317 10^3/uL (130-450); RED BLOOD COUNT 4.03 10^6/uL (4.20-5.40); RED CELL DISTRIBUTION WIDTH 13.9 % (12.0-15.0); WHITE BLOOD COUNT 7.9 x10^3/uL (4.8-10.8)
[2023-03-10] MEDS ORDERED: MORPHINE 2 MG/ML CARPUJECT IVP STA (23:53)
[2023-03-10] MEDS ORDERED: SODIUM CHLORIDE 0.9% 1,000 ML IV STA (23:53)
--- NOTE | 2023-03-10 23:55 | ED Physician Documentation ---
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 Patient states that she had several episodes of nausea with vomiting earlier this evening after eating "[address]". She states afterwards she went to lay down and developed substernal chest pain. On arrival patient states she still has mild nausea, but her chest pain has resolved. Reports generalized head pain that has been present since her surgery but unchanged from prior. Review of Systems Constitutional: denies: Fever, Chills Cardiac: reports: Chest pain / pressure. denies: Palpitations, Calf pain Respiratory: denies: Dyspnea, Cough GI: reports: Abdominal Pain, Nausea, Vomiting : denies: Dysuria, Frequency, Hesitancy Musculoskeletal: denies: Neck pain, Back pain, Extremity pain Neurologic: reports: Headache ("head pain" - post surgical per patient). 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 : Kidney stones HEENT: None, Dental implants Psych: None Musculoskeletal: Osteoarthritis, Osteoporosis, Chronic back pain, Other Derm: None - Past Surgical History Past Surgical History: Yes General: Appendectomy Ortho: Arthroscopic surgery /SQL DATA ARCHITECT: Hysterectomy, Mastectomy - Present Medications Home Medications: Ambulatory Orders Medication Instructions Recorded Confirmed metFORMIN [Glucophage] 1,000 mg PO BIDWM 09/29/13 03/10/23 Biotin 300 mcg PO DAILY 06/26/16 03/10/23 Gabapentin 300 mg PO BID PRN 02/24/19 03/10/23 Calcium Carbonate [Tums (Calcium 500 mg PO DAILY 07/14/20 03/10/23 Carbonate 500mg)] Cholecalciferol (Vitamin D3) 1,000 unit PO DAILY 07/14/20 03/10/23 [Vitamin D3] DULoxetine [Cymbalta] 30 mg PO BID 07/14/20 03/10/23 Docusate Sodium 100Mg Capsule 100 mg PO DAILY #20 cap 12/15/20 03/10/23 [Colace 100Mg Capsule] Atorvastatin Calcium [Lipitor] 80 mg PO DAILY 03/10/23 03/10/23 Levetiracetam [Keppra] 500 mg PO BID 03/10/23 03/10/23 Losartan Potassium 25 mg PO DAILY 03/10/23 03/10/23 traMADol [Ultram] 50 mg PO Q4-6H PRN #14 tablet 03/11/23 - Allergies Allergies/Adverse Reactions: Allergies Allergy/AdvReac Type Severity Reaction Status Date / Time latex AdvReac Mild Sensitivity/Red Verified 03/10/23 23:41 irritated skin - Social History Does the pt smoke?: Yes Smoking Status: Current every day smoker Does the pt drink ETOH?: No Does the pt have substance abuse?: No - Immunizations Immunizations are current?: Yes - POLST Patient has POLST: No PD ED PE NORMAL - Vitals Vital signs reviewed: Yes - General General: Alert and oriented X 3, No acute distress, Well developed/nourished - HEENT HEENT: Atraumatic - Neck Neck: Supple, no meningeal sign - Cardiac Cardiac: RRR, Strong equal pulses - Respiratory Respiratory: No respiratory distress, Clear bilaterally - Abdomen Abdomen: Soft, Non distended, Other (generalized lower abdominal tenderness to deep palpation) - Derm Derm: Normal color, Warm and dry, No rash, Other (occipital surgical wound clean, dry, intact.) - Extremities Extremities: No deformity, No tenderness to palpate, Normal ROM s pain, No edema - Neuro Neuro: Alert and oriented X 3, band saw filer 2-12 intact, No motor deficit, Normal speech - Psych Psych: Normal mood, Normal affect Results - Vitals Vitals: Vital Signs - 24 hr 03/10/23 03/11/23 03/11/23 23:30 01:36 03:00 Temperature 36.2 C L Heart Rate 75 70 66 Respiratory 15 18 16 Rate Blood Pressure 126/116 H 164/90 H 154/84 H O2 Saturation 99 98 99 03/11/23 05:33 Temperature Heart Rate 63 Respiratory 13 Rate Blood Pressure 152/98 H O2 Saturation 98 Oxygen O2 Source Room air - Labs Labs: Laboratory Tests 03/10/23 03/10/23 03/10/23 23:46 23:46 23:46 WBC 7.9 RBC 4.03 L Hgb 11.8 L Hct 37.0 MCV 91.8 MCH 29.3 MCHC 31.9 L RDW 13.9 Plt Count 317 MPV 9.6 Neut # (Auto) 4.9 Lymph # (Auto) 2.0 Hooker # (Auto) 0.7 Eos # (Auto) 0.1 Baso # (Auto) 0.1 Absolute Nucleated RBC 0.00 Nucleated RBC % 0.0 PT 11.6 INR 1.1 Sodium 136 Potassium 3.6 Chloride 104 Carbon Dioxide 25 Anion Gap 7.0 BUN 11 Creatinine 0.6 Estimated GFR (MDRD) 100 Glucose 177 H Calcium 9.0 Total Bilirubin 0.3 AST 27 ALT 36 Alkaline Phosphatase 89 Troponin I High Sens 2.9 B-Natriuretic Peptide Total Protein 6.6 Albumin 3.8 Globulin 2.8 Albumin/Globulin Ratio 1.4 Lipase Urine Color Urine Clarity Urine pH Ur Specific [place] Urine Protein Urine Glucose (UA) Urine Ketones Urine Occult Blood Urine Nitrite Urine Bilirubin Urine Urobilinogen Ur Leukocyte Esterase Urine RBC Urine WBC Ur Squamous Epith Cells Urine Bacteria Ur Microscopic Review Urine Culture Comments 03/10/23 03/10/23 03/11/23 23:46 23:46 03:15 WBC RBC Hgb Hct MCV MCH MCHC RDW Plt Count MPV Neut # (Auto) Lymph # (Auto) Hooker # (Auto) Eos # (Auto) Baso # (Auto) Absolute Nucleated RBC Nucleated RBC % PT INR Sodium Potassium Chloride Carbon Dioxide Anion Gap BUN Creatinine Estimated GFR (MDRD) Glucose Calcium Total Bilirubin AST ALT Alkaline Phosphatase Troponin I High Sens B-Natriuretic Peptide 79 Total Protein Albumin Globulin Albumin/Globulin Ratio Lipase 23 Urine Color YELLOW Urine Clarity CLEAR Urine pH 7.0 Ur Specific [place] 1.010 Urine Protein NEGATIVE Urine Glucose (UA) NEGATIVE Urine Ketones NEGATIVE Urine Occult Blood NEGATIVE Urine Nitrite NEGATIVE Urine Bilirubin NEGATIVE Urine Urobilinogen 0.2 (NORMAL) Ur Leukocyte Esterase SMALL H Urine RBC 0-5 Urine WBC 4-5 Ur Squamous Epith Cells FEW Squamous Urine Bacteria None Seen Ur Microscopic Review INDICATED Urine Culture Comments INDICATED PD Medical Decision Making - ED course Complexity details: reviewed old records, reviewed results, re-evaluated patient, considered differential, d/w patient ED course: Well-appearing patient with chest pain after several episodes of nausea and vomiting. Currently pain-free. EKG is normal sinus rhythm without concerning ischemic findings. Abdomen is soft but she does have reproducible tenderness to palpation in her lower abdomen. Given recent history of shunt placement in the abdomen will order labs and CT imaging. Laboratory work is reviewed, no acute abnormalities identified. Troponin within normal limits. Patient has remained chest pain-free throughout her stay in the emergency department. CT of the abdomen and pelvis shows findings with possible gastritis, however no other acute intra-abdominal pathology identified. Patient informed of all lab and imaging results, she is relieved to know that her EKG and troponins were normal. She has scheduled follow-up appointment with neurosurgery later this week, however she states that she is almost out of her pain medications. I offered a short refill of pain medications until the patient can see her neurosurgeon in a couple of days, patient requested this refill, which was sent to the pharmacy of choice. Patient advised to follow bland diet for next 24-48 hours. Departure - Departure Disposition: 01 Home, Self Care Clinical Impression: Chest pain Qualifiers: Chest pain type: unspecified Qualified Code(s): R07.9 - Chest pain, unspecified Nausea & vomiting Qualifiers: Vomiting type: unspecified Qualified Code(s): R11.2 - Nausea with vomiting, unspecified Condition: Stable Instructions: ED Chest Pain Atypical Unkn Cause Prescriptions: traMADol [Ultram] 50 mg PO Q4-6H PRN #14 tablet PRN Reason: Pain 5-7 Comments: Your laboratory work results today were normal. I do not know the cause of your chest pain, but I recommend following up with your primary care physician as well as a automation engineer. Please continue to follow-up with your neurosurgeon as previously scheduled. Forms: PCP List
[2023-03-11] MEDS ORDERED: PROMETHAZINE INJ 25 MG in SODIUM CHLORIDE 0.9% 50 ML IV STA (00:08)
[2023-03-11 00:15] LABS: ALBUMIN 3.8 g/dL (3.2-5.5); ALBUMIN/GLOBULIN RATIO 1.4 (1.0-2.2); BILIRUBIN,TOTAL 0.3 mg/dL (0.2-1.0); CREATININE 0.6 mg/dL (0.6-1.3); POTASSIUM 3.6 mmol/L (3.5-4.5); TOTAL PROTEIN 6.6 g/dL (6.4-8.9)
[2023-03-11 00:22] LABS: TROPONIN I HIGH SENSITIVITY 2.9 ng/L (2.3-14.8)
[2023-03-11] MEDS ORDERED: PROMETHAZINE 25 MG/1 ML VIAL ONE (00:27)
[2023-03-11 00:37] LABS: INR 1.1 (0.8-1.2); PT - PROTHROMBIN TIME 11.6 secs (9.9-12.6)
--- NOTE | 2023-03-11 01:18 | XRAY Report ---
PROCEDURE: Chest 1 View X-Ray INDICATIONS: chest pain TECHNIQUE: One view of the chest was acquired. COMPARISON: Prior CT thoracic spine 01/24/2023.. FINDINGS: Surgical changes and devices: What appears to be a likely ventriculoperitoneal shunt crosses the rig ht lower neck and paramedian right chest and cannot be clearly visualized below that level due to bod y habitus. A Port-A-Cath from a right-sided approach extends to the atrial caval junction. Lungs and pleura: No pleural effusions or pneumothorax. Lungs are clear. Mediastinum: Mediastinal contours appear normal. Heart size is normal. Bones and chest wall: No suspicious bony lesions. Overlying soft tissues appear unremarkable. IMPRESSION: No acute cardiopulmonary process. Reduced quality of visualization due to body habitus. The exact course of the presumed ventriculoperi toneal shunt below the mid chest level is poorly visualized. Reviewed by: Gigi Herrera MD on 03/11/2023 1:17 AM PST Approved by: Gigi Herrera MD on 03/11/2023 1:17 AM PST Station ID: [id number]
[2023-03-11] MEDS ORDERED: iohexoL-300 100 ML VIAL IVP ONE (03:14)
[2023-03-11 03:29] LABS: BILIRUBIN,URINE NEGATIVE (NEGATIVE); GLUCOSE, URINE (UA) NEGATIVE (NEGATIVE); KETONES,URINE (UA) NEGATIVE (NEGATIVE); LEUKOCYTE ESTERASE, URINE SMALL (NEGATIVE); NITRITE,URINE NEGATIVE (NEGATIVE); OCCULT BLOOD,URINE NEGATIVE (NEGATIVE); PROTEIN,URINE NEGATIVE (NEGATIVE); UROBILINOGEN,URINE 0.2 (NORMAL) E.U./dL (NORMAL)
[2023-03-11] MEDS ORDERED: traMADol 50 MG TABLET PO STA (03:30)
[2023-03-11 03:44] LABS: CLARITY,URINE CLEAR (CLEAR)
[2023-03-11 03:45] LABS: BACTERIA,URINE None Seen /HPF (None Seen); RBC,URINE 0-5 /HPF (0-5); SQUAMOUS EPITHELIAL CELL,UR FEW Squamous (<= Few)
[2023-03-11 05:40] VITALS: BP 152/98; O2SAT 98
--- NOTE | 2023-03-11 08:57 | CT Report ---
PROCEDURE: ABDOMEN/PELVIS W INDICATIONS: N/V/RECENT BEAM BUILDER SHUNT PLACEMENT CONTRAST: 100 ML OMNI 300 TECHNIQUE: After the administration of IV contrast, 5 mm thick sections acquired from the diaphragms to the symp hysis. 5 mm thick coronal and sagittal reformats were acquired. For radiation dose reduction, the f ollowing was used: automated exposure control, adjustment of mA and/or kV according to patient size. COMPARISON: CT December 15, 2020 FINDINGS: Image quality: Excellent. Lung bases and heart: Coronary artery disease. Liver: No solid mass. Mild hepatomegaly. Gallbladder and biliary tree: No radiopaque stones or wall thickening. No biliary dilation. Spleen: No splenomegaly. Pancreas: No pancreatic ductal dilation. Adrenals: No adrenal nodule. Kidneys and ureters: No concerning solid masses requires follow-up. Within the right kidney there is a nonobstructive 6 mm stone . No hydronephrosis. Bowel and peritoneum: No bowel distension. No pathologic free fluid. There is questionable thickening of the stomach which may be exaggerated by under distention. Lymph nodes: No central or retroperitoneal adenopathy. Vessels: No infrarenal aortic aneurysm. PELVIS Reproductive organs: Status post hysterectomy. 3.5 cm cystic-appearing right ovarian mass Bladder: No abnormal wall thickening, accounting for underdistension. A few small foci of air, likely iatrogenic Pelvic lymph nodes: No pelvic adenopathy by size criteria. Bones: No aggressive osseous abnormality. Other: No concerning hernia. BEAM BUILDER shunt terminates within the pelvis adjacent to the bladder. IMPRESSION: 1.BEAM BUILDER shunt terminates within the pelvis without concerning features. 2.3.5 cm cystic mass within the right adnexa. This could be further evaluated by ultrasound. 3.Sequelae of cirrhosis. 4.Possible thickening of the stomach is exaggerated by underdistention however it may also be sequela of gastritis. Findings are concordant with preliminary interpretation provided by [facility]. Reviewed by: Al Villegas MD on 03/11/2023 7:55 AM [facility] Approved by: Al Villegas MD on 03/11/2023 7:55 AM [facility] Station ID: [id number]
--- NOTE | 2023-03-13 16:24 | ED Physician Documentation ---
ED Addendum - Addendum Addendum: 03/13/23 16:23 Chart reviewed, urinalysis was only showing small leukocyte esterase and no white cells. And she did not apparently have any symptoms of UTI and no white count. As such I suspect this represents asymptomatic bacteriuria.
== END 2023-03-11 06:50 | disposition home or self-care (01) ==
LOC: EDUNIT# → ED 23:32
DX: R07.9 Chest pain, unspecified (principal); R11.2 Nausea with vomiting, unspecified; R82.71 Bacteriuria; E11.9 Type 2 diabetes mellitus without complications; F17.200 Nicotine dependence, unspecified, uncomplicated; Z79.899 Other long term (current) drug therapy; Z79.84 Long term (current) use of oral hypoglycemic drugs
CPT/HCPCS: 36415; 71045; 74177; 80053; 81001; 83690; 83880; 84484; 85025; 85610; 87086; 87181; 93005; 96365; 96375; 99283; 99284; A9270; J7040; Q9967; 81003

== ENCOUNTER 2023-03-26 10:29 | Outpatient (CLI) | payer MEDICARE, OTHER | END 2023-03-26 10:30 | disposition left against medical advice (07) | LOC: EMS 10:29 | DX: R45.1 Restlessness and agitation (principal) ==

== ENCOUNTER 2023-03-26 15:07 | Emergency (ER) | payer MEDICARE, OTHER ==
[2023-03-26 15:28] VITALS: BP 122/81; O2SAT 100
--- NOTE | 2023-03-26 15:53 | ED Physician Documentation ---
History of Present Illness - Stated complaint Stated Complaint: GLF/HIP PX - Chief complaint Chief Complaint: Trauma Ext - History obtained from History obtained from: Patient - Additonal information Additional information: Recent DIRECTOR PHONE shunt placement. [place] mechanical [place] onto her right side. She thinks she hit her head only mildly but does not have a any more significant headache than usual. Mostly its the right shoulder and hip that hurt. She is able to walk and bear weight, but with pain on the right. No other injuries. Declines pain medication. 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 : Kidney stones HEENT: None, Dental implants Psych: None Musculoskeletal: Osteoarthritis, Osteoporosis, Chronic back pain, Other Derm: None - Past Surgical History Past Surgical History: Yes General: Appendectomy Ortho: Arthroscopic surgery /FIELD MECHANIC: Hysterectomy, Mastectomy - Present Medications Home Medications: Ambulatory Orders Medication Instructions Recorded Confirmed metFORMIN [Glucophage] 1,000 mg PO BIDWM 09/29/13 03/10/23 Biotin 300 mcg PO DAILY 06/26/16 03/10/23 Gabapentin 300 mg PO BID PRN 02/24/19 03/10/23 Calcium Carbonate [Tums (Calcium 500 mg PO DAILY 07/14/20 03/10/23 Carbonate 500mg)] Cholecalciferol (Vitamin D3) 1,000 unit PO DAILY 07/14/20 03/10/23 [Vitamin D3] DULoxetine [Cymbalta] 30 mg PO BID 07/14/20 03/10/23 Docusate Sodium 100Mg Capsule 100 mg PO DAILY #20 cap 12/15/20 03/10/23 [Colace 100Mg Capsule] Atorvastatin Calcium [Lipitor] 80 mg PO DAILY 03/10/23 03/10/23 Levetiracetam [Keppra] 500 mg PO BID 03/10/23 03/10/23 Losartan Potassium 25 mg PO DAILY 03/10/23 03/10/23 traMADol [Ultram] 50 mg PO Q4-6H PRN #14 tablet 03/11/23 - Allergies Allergies/Adverse Reactions: Allergies Allergy/AdvReac Type Severity Reaction Status Date / Time latex AdvReac Mild Sensitivity/Red Verified 03/26/23 15:28 irritated skin - Social History Does the pt smoke?: No Smoking Status: Never smoker Does the pt drink ETOH?: No Does the pt have substance abuse?: No - Immunizations Immunizations are current?: Yes - POLST Patient has POLST: No PD ED PE NORMAL - Vitals Vital signs reviewed: Yes - General General: Alert and oriented X 3, No acute distress - HEENT HEENT: PERRL, EOMI - Neck Neck: Supple, no meningeal sign, No bony TTP - Extremities Extremities: Other (Tender posteriorly and laterally over the right shoulder, able to abduct greater than 90 degrees but then has a lot of pain with it. Right hip mild tenderness laterally but no pain with internal or external rotation.) - Neuro Neuro: Alert and oriented X 3, Normal speech Results - Vitals Vitals: Vital Signs - 24 hr 03/26/23 15:20 Temperature 36.1 C L Heart Rate 102 H Respiratory 16 Rate Blood Pressure 122/81 H O2 Saturation 100 Oxygen O2 Source Room air - Rads (name of study) X-rays right shoulder and hip negative except for osteoarthritis Relevant Findings:: Final report received, EMP independent interpretation of test PD Medical Decision Making - ED course ED course: Clinically hip fracture very unlikely. She does have decreased range of motion of the shoulder, but can go up to over 90 degrees initially so probably not a rotator cuff tear more likely a strain or just a contusion. Departure - Departure Disposition: 01 Home, Self Care Clinical Impression: Fall from ground level Injury of hip and thigh Qualifiers: Encounter type: initial encounter Laterality: right Qualified Code(s): S79.911A - Unspecified injury of right hip, initial encounter; S79.921A - Unspecified injury of right thigh, initial encounter Shoulder injury Qualifiers: Encounter type: initial encounter Laterality: right Qualified Code(s): S49.91XA - Unspecified injury of right shoulder and upper arm, initial encounter Condition: Good Record reviewed to determine appropriate education?: Yes Instructions: ED Sprain Shoulder Follow-Up: Orthopedic Care [Provider Group] Comments: As discussed, x-rays normal with the exception of osteoarthritis. Continue current pain regimen. Suspect your range of motion of your shoulder will come back well as it is not seeming like a full rotator cuff tear but out of an abundance of caution reasonable for you to follow-up with one of our orthopedic surgeons, the number is on this form. Return for new or worsening symptoms. Forms: PCP List
--- NOTE | 2023-03-26 16:41 | XRAY Report ---
PROCEDURE: Shoulder 3 View RT INDICATIONS: shoulder inj TECHNIQUE: 3 views of the shoulder were acquired. COMPARISON: None. FINDINGS: Bones: No fractures or dislocations. Moderate acromioclavicular joint osteoarthritic changes are se en. Mild to moderate glenohumeral joint osteoarthritic changes also seen. No suspicious bony lesions. Visualized ribs appear intact. Soft tissues: Small calcifications are noted adjacent to greater tuberosity of humeral head which ma y represent calcific tendinitis. The visualized lungs are within normal limits. IMPRESSION: No acute shoulder fracture or dislocation. Mild to moderate right shoulder joint osteoarthritis and s uggestion of calcific tendinitis. Reviewed by: Hector Ramirez MD on 03/26/2023 4:40 PM PST Approved by: Hector Ramirez MD on 03/26/2023 4:40 PM PST Station ID: [id number]
--- NOTE | 2023-03-26 16:42 | XRAY Report ---
PROCEDURE: Hip w/Pelvis 2-3V RT INDICATIONS: hip inj TECHNIQUE: AP pelvis with lateral view(s) of the right hip(s). COMPARISON: None. FINDINGS: Bones: No fractures or dislocations. Bilateral hip joint osteophytic changes are seen. No evidence of avascular necrosis of femoral head. No suspicious bony lesions. Soft tissues: No suspicious soft tissue calcifications or masses. IMPRESSION: No acute right hip fracture or dislocation. Bilateral hip joint osteoarthritis. No evidence of avascu lar necrosis. Reviewed by: Hector Ramirez MD on 03/26/2023 4:41 PM PST Approved by: Hector Ramirez MD on 03/26/2023 4:41 PM PST Station ID: [id number]
== END 2023-03-26 17:13 | disposition home or self-care (01) ==
LOC: ED 15:07
DX: S79.921A Unspecified injury of right thigh, initial encounter (principal); S49.91XA Unspecified injury of right shoulder and upper arm, initial encounter; W19.XXXA Unspecified fall, initial encounter; Y92.242 Post office as the place of occurrence of the external cause; E11.9 Type 2 diabetes mellitus without complications; Z79.84 Long term (current) use of oral hypoglycemic drugs
CPT/HCPCS: 99283; 99284

== ENCOUNTER 2023-04-06 14:16 | Emergency (ER) | payer MEDICARE, OTHER ==
[2023-04-06] MEDS ORDERED: HYDROmorphone 1 MG/ML CARPUJECT IM STA (14:55)
--- NOTE | 2023-04-06 14:55 | ED Physician Documentation ---
PD HPI FOCAL NEURO - Stated complaint Stated Complaint: HEAD PX - Chief complaint Chief Complaint: Neuro - History obtained from History obtained from: Patient - Additional information Additional information: She had multiple meningiomas removed 2 and half years ago and more recently had a repeat surgery in February with TOOLING INSPECTOR shunt placement. She has been weaning off of oxycodone and over the last 2 days has developed more severe headache in the right posterior cranium where her prior craniotomy was. She denies any new weakness, numbness, tingling, diplopia, or other focal neurologic symptoms. 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 : Kidney stones HEENT: None, Dental implants Psych: None Musculoskeletal: Osteoarthritis, Osteoporosis, Chronic back pain, Other Derm: None - Past Surgical History Past Surgical History: Yes General: Appendectomy Ortho: Arthroscopic surgery /DIGITAL SALES ASSISTANT: Hysterectomy, Mastectomy - Present Medications Home Medications: Ambulatory Orders Medication Instructions Recorded Confirmed metFORMIN [Glucophage] 1,000 mg PO BIDWM 09/29/13 03/10/23 Biotin 300 mcg PO DAILY 06/26/16 03/10/23 Gabapentin 300 mg PO BID PRN 02/24/19 03/10/23 Calcium Carbonate [Tums (Calcium 500 mg PO DAILY 07/14/20 03/10/23 Carbonate 500mg)] Cholecalciferol (Vitamin D3) 1,000 unit PO DAILY 07/14/20 03/10/23 [Vitamin D3] DULoxetine [Cymbalta] 30 mg PO BID 07/14/20 03/10/23 Docusate Sodium 100Mg Capsule 100 mg PO DAILY #20 cap 12/15/20 03/10/23 [Colace 100Mg Capsule] Atorvastatin Calcium [Lipitor] 80 mg PO DAILY 03/10/23 03/10/23 Levetiracetam [Keppra] 500 mg PO BID 03/10/23 03/10/23 Losartan Potassium 25 mg PO DAILY 03/10/23 03/10/23 traMADol [Ultram] 50 mg PO Q4-6H PRN #14 tablet 03/11/23 oxyCODONE [Roxicodone] 5 mg PO Q4-6H PRN #10 tablet 04/06/23 - Allergies Allergies/Adverse Reactions: Allergies Allergy/AdvReac Type Severity Reaction Status Date / Time latex AdvReac Mild Sensitivity/Red Verified 04/06/23 14:53 irritated skin - Social History Does the pt smoke?: No Smoking Status: Never smoker Does the pt drink ETOH?: No Does the pt have substance abuse?: No - Immunizations Immunizations are current?: Yes - POLST Patient has POLST: No PD ED PE NORMAL - Vitals Vital signs reviewed: Yes - General General: Alert and oriented X 3, No acute distress - HEENT HEENT: PERRL, EOMI, Other (Craniotomy right occiput healing well, CDI) - Neck Neck: Supple, no meningeal sign, No bony TTP - Neuro Neuro: Alert and oriented X 3, system safety manager 2-12 intact, Normal speech Eye Opening: Spontaneous Motor: Obeys Commands Verbal: Oriented GCS Score: 15 Results - Vitals Vitals: Vital Signs - 24 hr 04/06/23 04/06/23 14:27 15:53 Temperature 36.8 C Heart Rate 71 71 Respiratory 14 15 Rate Blood Pressure 150/93 H 149/99 H O2 Saturation 100 99 Oxygen O2 Source Room air - Rads (name of study) CT of the head demonstrates TOOLING INSPECTOR shunt without hydrocephalus and prior craniotomy change. No acute disease. Relevant Findings:: Final report received, EMP independent interpretation of test PD Medical Decision Making - ED course ED course: 67-year-old woman who developed a headache in the setting of recent brain surgery and she is worried about a head bleed. There is no evidence of that on head CT and she was feeling better after intramuscular Dilaudid here. She is tapering off narcotics currently and had an unexpected need for more with her recent shoulder injury which she is recovering from. Departure - Departure Disposition: 01 Home, Self Care Clinical Impression: Headache Qualifiers: Headache type: unspecified Headache chronicity pattern: acute headache Intractability: not intractable Qualified Code(s): R51.9 - Headache, unspecified Condition: Good Record reviewed to determine appropriate education?: Yes Instructions: ED Cephalgia Unspecified Prescriptions: oxyCODONE [Roxicodone] 5 mg PO Q4-6H PRN #10 tablet PRN Reason: Pain Comments: I sent your prescription electronically to the [facility] in [place]. Reasonable to follow-up with your neurosurgeon when able. Return for new or worsening symptoms. CT read:No rosa maria acute abnormality is identified by noncontrast CT. There has been placement of a right posterior approach ventriculostomy catheter, without hydrocephalus. Prior left posterior craniotomy change is seen. I am prescribing a short course of narcotic pain medication for you. These are potentially dangerous and addictive medications that should be used carefully. These medications may constipate you. Take an lcns-mlw-htknwwv stool softener (docusate) twice daily with plenty of water while taking these medications. If you go 24 hours without a bowel movement, take gple-kov-lweyvpi miralax, per package instructions. Do not drink or drive while taking these medications. If you received narcotic or sedating medications while in the emergency department, do not drive for 24 hours. Store this medication in a safe, secure place and out of reach of children. It is a violation of federal law to give or sell this medication to another person or to use in a manner other than prescribed. The ED will not refill narcotic prescriptions, including prescriptions lost or stolen. To dispose of unwanted medications: 1. [facility] provides a drop box for medication in pill form only (no liquids) 8:00 am to 4:30 p.m. Sunday-Sunday in the lobby of the [facility], [address] [place] [address]. Empty pills into ziplock bag before disposal. Call [phone] for information. 2.[employer] is a free service available to all [facility] residents. Go to [email or web address] Note that many narcotic pain relievers also contain Tylenol/acetaminophen. Please ensure that your total dose of acetaminophen from all sources does not exceed 3 g (3000 mg) per day. Forms: PCP List Discharge Date/Time: 04/06/23 15:54
--- NOTE | 2023-04-06 15:36 | CT Report ---
PROCEDURE: HEAD WO INDICATIONS: headache TECHNIQUE: Noncontrast 4.5 mm thick angled axial sections acquired from the foramen magnum to the vertex. For r adiation dose reduction, the following was used: automated exposure control, adjustment of mA and/or kV according to patient size. COMPARISON: 11/17/2020 FINDINGS: Image quality: Excellent. CSF spaces: There is a right posterior approach ventriculostomy catheter seen, with the tip near the midline. Basal cisterns are patent. No extra-axial fluid collections. Ventricles are normal in siz e and shape. Brain: No midline shift. No intracranial masses or hemorrhage. Valenzuela-white matter interface is norm al. Skull and face: Left posterior craniotomy changes are seen. Calvarium and visualized facial bones ar e intact, without suspicious lesions. Sinuses: Visualized sinuses and mastoids are clear. IMPRESSION: No rosa maria acute abnormality is identified by noncontrast CT. There has been placement of a right posterior approach ventriculostomy catheter, without hydrocephalu s. Prior left posterior craniotomy change is seen. Reviewed by: Thomas Chaney MD on 04/06/2023 2:34 PM [place] Approved by: Thomas Chaney MD on 04/06/2023 2:34 PM [facility] Station ID: [id number]
[2023-04-06 15:55] VITALS: BP 149/99; O2SAT 99
== END 2023-04-06 15:54 | disposition home or self-care (01) ==
LOC: ED 14:16
DX: R51.9 Headache, unspecified (principal)
CPT/HCPCS: 70450; 96372; 99284; J1170

== ENCOUNTER 2023-05-15 12:54 | Outpatient (CLI) | payer MEDICARE, OTHER ==
--- NOTE | 2023-05-16 11:53 | Ultrasound Report ---
LIMITED ULTRASOUND OF LEFT BREAST: 05/15/2023 CLINICAL: Diffuse left breast pain for the past few months. No history of trauma or recent procedure per patient. Comparison is made to exams dated: 12/10/2019 ultrasound - [facility], 07/12/2011 ma mmogram, 07/10/2011, and 07/12/2011 ultrasound biopsy - [facility] with [facility]. Ultrasound of the left breast lower outer quadrant was performed. Valenzuela scale images of the real-chan e examination were reviewed. The patient is status post left breast mastectomy with implant reconstruction. In the area of clinica l concern in the left breast lower outer quadrant, no sonographic abnormality is visualized. The impl ant is partially evaluated without visible abnormality. IMPRESSION: NEGATIVE No definite sonographic abnormality in the area of clinical concern in the left breast lower outer qu adrant corresponding to area of skin bruising/discoloration on physical exam. Implant is partially ev aluated without visible abnormality. Clinical follow-up is recommended and correlation with clinical history (patient denies history of re cent trauma/procedure). Further management of palpable abnormalities or other focal signs or symptoms should be based on the results of clinical evaluation. If palpable abnormality or other concerning s ymptom persists or progresses, further clinical evaluation should be considered. Consider breast MRI with contrast for further evaluation if clinically appropriate. Findings and recommendations were conveyed to the patient during today's evaluation. This exam was interpreted at Station ID: [id number]. Electronically Signed By: Rita Valdovinos M.D., PH.D eb/:05/15/2023 15:43:25 Ultrasound BI-RADS: 1 Negative BI-RADS CATEGORY: (1) - 1 Unspecified - other recall n/a LATERALITY: (B)
== END 2023-05-15 12:55 | disposition home or self-care (01) ==
LOC: DI 12:54
PROVIDERS: ATTEND Family Medicine
DX: N64.4 Mastodynia (principal); C50.919 Malignant neoplasm of unspecified site of unspecified female breast; Z98.82 Breast implant status

== ENCOUNTER 2023-08-27 12:42 | Outpatient (CLI) | payer MEDICARE, OTHER ==
[2023-08-27 12:58] LABS: BASOPHILS # (AUTO) 0.1 10^3/uL (0.0-0.1); BASOPHILS % (AUTO) 0.7 %; EOSINOPHILS # (AUTO) 0.2 10^3/uL (0.0-0.7); EOSINOPHILS % (AUTO) 1.8 %; HCT - HEMATOCRIT 45.1 % (37.0-47.0); HGB - HEMOGLOBIN 14.1 g/dL (12.0-16.0); LYMPHOCYTES # (AUTO) 2.4 10^3/uL (1.5-3.5); LYMPHOCYTES % (AUTO) 28.3 %; MEAN CORPUSCULAR HEMOGLOBIN 28.7 pg (27.0-31.0); MEAN CORPUSCULAR HGB CONC 31.3 g/dL (32.0-36.0); MEAN CORPUSCULAR VOLUME 91.7 fL (81.0-99.0); MEAN PLATELET VOLUME 10.2 fL (7.9-10.8); MONOCYTES # (AUTO) 0.7 10^3/uL (0.0-1.0); MONOCYTES % (AUTO) 8.1 %; NEUTROPHILS # (AUTO) 5.1 10^3/uL (1.5-6.6); NEUTROPHILS % (AUTO) 60.7 %; PLT - PLATELET COUNT 283 10^3/uL (130-450); RED BLOOD COUNT 4.92 10^6/uL (4.20-5.40); RED CELL DISTRIBUTION WIDTH 13.6 % (12.0-15.0); WHITE BLOOD COUNT 8.4 x10^3/uL (4.8-10.8)
[2023-08-27 13:11] LABS: CALCIUM 10.2 mg/dL (8.5-10.3); CREATININE 0.8 mg/dL (0.6-1.3); POTASSIUM 3.5 mmol/L (3.5-4.5)
[2023-08-27 13:25] LABS: THYROID STIMULATING HORMONE 2.94 uIU/mL (0.34-5.60)
[2023-08-27 13:31] LABS: FERRITIN 52.7 ng/mL (11.0-306.8)
[2023-08-27 13:45] LABS: BILIRUBIN,URINE NEGATIVE (NEGATIVE); CLARITY,URINE SL. CLOUDY (CLEAR); GLUCOSE, URINE (UA) NEGATIVE (NEGATIVE); KETONES,URINE (UA) NEGATIVE (NEGATIVE); LEUKOCYTE ESTERASE, URINE TRACE (NEGATIVE); NITRITE,URINE NEGATIVE (NEGATIVE); OCCULT BLOOD,URINE NEGATIVE (NEGATIVE); PROTEIN,URINE NEGATIVE (NEGATIVE); UROBILINOGEN,URINE 0.2 (NORMAL) E.U./dL (NORMAL)
[2023-08-27 13:59] LABS: BACTERIA,URINE Many /HPF (None Seen); RBC,URINE 0-5 /HPF (0-5); SQUAMOUS EPITHELIAL CELL,UR RARE Squamous (<= Few)
[2023-08-27 19:14] LABS: ESTIMATED AVERAGE GLUCOSE 186 mg/dL (70-100); HEMOGLOBIN A1c% 8.1 % (4.27-6.07)
== END 2023-08-27 12:43 | disposition home or self-care (01) ==
LOC: LAB 12:42
PROVIDERS: ATTEND Family Medicine
DX: R53.83 Other fatigue (principal); R35.0 Frequency of micturition
CPT/HCPCS: 36415; 80048; 81001; 82728; 83036; 84443; 85025; 87086